=== PATIENT | male | born 1945 | race Caucasian/White ===

== ENCOUNTER → 2018-05-24 12:13 | Outpatient (CLI) | payer MEDICARE, OTHER, SELFPAY ==
--- NOTE | 2018-05-24 | DI.RAD.S_ITS ---
PROCEDURE: XR KNEE LT 3V INDICATIONS: LEFT KNEE PAIN TECHNIQUE: 3 views of the knee were acquired. COMPARISON: None. FINDINGS: Bones: No fractures or dislocations. No suspicious bony lesions. Mild to moderate knee joint degeneration with joint space narrowing and osteophyte formation. Soft tissues: No joint effusion. No suspicious soft tissue calcifications. IMPRESSION: [id number] degenerative joint disease. Dictated by: Darrin Hodge M.D. on 05/24/2018 at 15:37 Approved by: Darrin Hodge M.D. on 05/24/2018 at 15:37
== END ==
PROVIDERS: Family Provider Internal Medicine; PCP Internal Medicine; Visit Provider Internal Medicine
DX: M25.562 Pain in left knee (principal); M17.12 Unilateral primary osteoarthritis, left knee
CPT/HCPCS: 73562

== ENCOUNTER → 2018-11-30 10:25 | Outpatient (CLI) | payer MEDICARE, OTHER, SELFPAY ==
--- NOTE | 2018-11-30 | DI.RAD.S_ITS ---
PROCEDURE: XR CHEST 2V INDICATIONS: Dyspnea, unspecified TECHNIQUE: 2 views of the chest were acquired. COMPARISON: [facility], , CHEST 1 VIEW, 12/17/2015, 12:58. FINDINGS: Surgical changes and devices: Dual-lead cardiac pacer Lungs and pleura: No acute consolidation. Scattered subsegmental atelectasis and/or scarring. No pleural effusions or pneumothorax. Mediastinum: Mediastinal contours are normal. Heart size is normal. Bones and chest wall: No suspicious bony abnormalities. Lateral curvature of the spine and diffuse spondylitic changes. Soft tissues appear unremarkable. IMPRESSION: No acute disease. Dictated by: Homar Webb M.D. on 11/30/2018 at 13:15 Approved by: Homar Webb M.D. on 11/30/2018 at 13:16
== END ==
PROVIDERS: Family Provider Internal Medicine; PCP Internal Medicine; Visit Provider Internal Medicine
DX: R06.00 Dyspnea, unspecified (principal)
CPT/HCPCS: 71046

== ENCOUNTER 2019-09-02 06:03 | Day surgery (SDC) | payer MEDICARE, OTHER, SELFPAY ==
[2019-09-02 07:03] VITALS: BP 131/81; PULSE 66; RESP 15; TEMP 36.1; O2SAT 99; BMI 35.4
[2019-09-02] MEDS: SODIUM CHLORIDE 0.9% 1,000 ML 200 ML IV (07:10)
--- NOTE | 2019-09-02 07:48 | PM.PREOP ---
Pre-operative Note Interval Note History & Physical reviewed/Exam performed by Physician: Yes Changes to H&P: No ASA Class (for procedural sedation): III
[2019-09-02] MEDS: MIDAZOLAM 5 MG/5 ML VIAL IV (07:50)
[2019-09-02] MEDS: fentaNYL 250 MCG/5 ML INJ IV (07:50)
--- NOTE | 2019-09-02 08:10 | PM.OP.ENDO ---
Operative Date/Time/Diagnoses Date of procedure: 09/02/19 Time of procedure: 08:10 Pre-op diagnosis: Screening colonoscopy Post-op diagnosis: same Procedure & Clinicians Study performed: Colonoscopy Same procedure as scheduled: Yes Indications: 74-year-old male last colonoscopy 10 years ago normal presents for routine screening. Surgeon: Jordy New Procedure Notes SCOAP/Timeout: Performed Procedure in detail: Patient placed in left lateral decubitus position. Time out was performed. Procedural sedation was administered with Versed and Fentanyl. A rectal exam demonstrated no external hemorrhoids no internal masses. Colonoscopy scope was placed into the rectum and advanced through the colon to the cecum. The ileocecal valve was identified. The scope was then slowly withdrawn examining colon thoroughly in all directions. The colonoscopy was notable for the following 1. Sigmoid diverticulosis 2. Grade 1 internal hemorrhoids 3. Quality of prep fair Scope withdrawal time: 7 Sedation minutes: 20 Findings: diverticulosis Specimen(s): none sent Complications: none Impression: Diverticulosis Post-procedure Recommendations: Colonscopy in 10 years Disposition: same day surgery
[2019-09-02 08:14] VITALS: BP 120/71; PULSE 60; RESP 14; TEMP 36.2; O2SAT 94
[2019-09-02 08:20] VITALS: BP 124/72; PULSE 60; RESP 14; O2SAT 96
[2019-09-02 08:25] VITALS: BP 116/72; PULSE 60; RESP 12; TEMP 36.5; O2SAT 12
[2019-09-02 08:30] VITALS: BP 105/72; PULSE 60; RESP 12; TEMP 36.2; O2SAT 97
[2019-09-02 08:46] VITALS: BP 112/77; PULSE 61; RESP 14; TEMP 36.2; O2SAT 96
== END 2019-09-02 08:49 | disposition home or self-care (01) ==
PROVIDERS: PCP Internal Medicine; Visit Provider Surgery
PROC: 0DJD8ZZ Inspection of Lower Intestinal Tract, Via Natural or Artificial Opening Endoscopic (ICD-10-PCS; CPT 45378; principal; 2019-09-02 07:45)
DX: Z12.11 Encounter for screening for malignant neoplasm of colon (principal); G47.33 Obstructive sleep apnea (adult) (pediatric); Z95.0 Presence of cardiac pacemaker; E66.9 Obesity, unspecified; J44.9 Chronic obstructive pulmonary disease, unspecified; Z79.01 Long term (current) use of anticoagulants; I34.0 Nonrheumatic mitral (valve) insufficiency; I48.0 Paroxysmal atrial fibrillation; K57.30 Diverticulosis of large intestine without perforation or abscess without bleeding; K64.0 First degree hemorrhoids
CPT/HCPCS: G0121; 99152; J2250; J3010

== ENCOUNTER 2019-09-10 10:08 | Day surgery (SDC) | payer MEDICARE, OTHER, SELFPAY ==
[2019-08-30 14:01] VITALS: BMI 37.5
[2019-09-10] VITALS (9 sets, daily range): BP systolic 95–120; BP diastolic 56–79; PULSE 59–63; RESP 14–18; TEMP 36.1–36.3; O2SAT 94–97; BMI 37.5
--- NOTE | 2019-09-10 10:44 | P.HP_ITS ---
History of Present Illness History of Present Illness Date Patient Seen: 09/10/19 Time Patient Seen: 10:44 Chief complaint: [id number] Narrative: 09/10 this 74-year-old male with a symptomatic umbilical hernia. Please refer to the H& P dated 08/07 for further detail. There's been no interval changes in health. 08/07-This is a 74-year-old male who presents with a chronic non reducible umbilical hernia. Present for many years slowly enlarging becoming more un comfortable with physical activity. He wants operative fixation. No episodes of bowel obstruction or hernia strangulation. It has been chronically incarcerated for the past at least 1 year. His medical history is significant for the cardiac pulmonary disease. He is followed by Dr. Norman of [facility] in [facility]. For he has paroxysmal atrial fibrillation hypertension mitral valve regurgitation a dual chamber pacemaker for sinus node dysfunction and CPAP for obstructive sleep apnea. His most recent echo was July of 2019 which is significant for mild-moderate mitral regurgitation ejection fraction of 65%. A plain treadmill stress test December 2015 was negative for ischemia. No history of peripheral vascular disease, diabetes, stroke or renal insufficiency. They are a former smoker. Patient History Medical History Anxiety (Acute) Arrhythmia (Acute) Arthritis (Acute) BPH (benign prostatic hyperplasia) (Acute) Chronic anticoagulation (Acute) COPD (chronic obstructive pulmonary disease) (Acute) Diverticulitis (Acute) Easy bruisability (Acute) GERD (gastroesophageal reflux disease) (Acute) Gout (Acute) History of cardioversion (Acute) HTN (hypertension) (Acute) Hx of agent [place] exposure (Acute) Mitral regurgitation (Acute) Obesity (Acute) Obstructive sleep apnea (Acute) Pacemaker (Acute 06/06/18) Pain (Acute) Seasonal allergies (Acute) Sinus bradycardia (Acute) Surgical History H/O inguinal hernia repair (Acute ~1982) History of surgery (Acute ~2018) Hx of nasal septoplasty (Acute ~1988) Family & Social History Social History: household members spouse Tobacco & Substance use: Tobacco type cigarettes Smoking Status Former smoker alcohol intake never Substance Use Type does not use Meds Home Medications and Allergies Home Medications Medication Instructions Recorded Confirmed Type dofetilide 125 mcg capsule 250 mcg PO Q12H 08/07/19 09/10/19 History furosemide 20 mg tablet 20 mg PO DAILY 08/07/19 09/10/19 History irbesartan 150 mg tablet 150 mg PO DAILY 08/07/19 09/10/19 History sertraline 50 mg tablet 50 mg PO DAILY 08/07/19 09/10/19 History tamsulosin 0.4 mg capsule 0.4 mg PO DAILY 08/07/19 09/10/19 History warfarin 7.5 mg tablet 7.5 mg PO QTUTHSA 08/07/19 09/10/19 History Allergies Allergy/AdvReac Type Severity Reaction Status Date / Time No Known Drug Allergies Allergy Verified 09/10/19 10:27 Review of Systems Review of Systems Narrative: A complete review of systems is negative except as noted in the HPI Exam Narrative Exam Narrative: General-no acute distress, well nourished HEENT-moist mucous membranes, no scleral icterus Neck-supple, no lymphadenopathy Chest- non labored respirations, clear to auscultation bilaterally Cardiac-regular rate no peripheral edema Abdomen-soft, non reducible umbilical Extremities-warm, well perfused Neurological-alert and oriented, no focal deficits Assessment & Plan Assessment and plan (1) Umbilical hernia: Current visit: No Status: Acute Assessment & Plan narrative: 74-year-old male with a symptomatic umbilical hernia presents for elective repair. We discussed the risks of the operation including bleeding infection recurrence chronic pain. His questions have been answered and he is in agreement with this plan.
[2019-09-10] MEDS: CEFAZOLIN 2 GM/100 ML FROZ.PIGGY IV (10:50)
--- NOTE | 2019-09-10 11:06 | SUR.OPER ---
Supine on padded OR bed, head on pillow, arms secured on padded arm boards at <90 degrees abduction, legs uncrossed, safety belt at thigh, tape over blanket over lower legs.
[2019-09-10] MEDS: BUPIVACAINE 0.25% (PF) VIAL 30 ML INJ (11:10)
--- NOTE | 2019-09-10 12:03 | PM.OP.1 ---
Operative Date/Time/Diagnoses Date of procedure: 09/10/19 Time of procedure: 12:04 Pre-op diagnosis: Umbilical hernia Post-op diagnosis: same Procedure & Clinicians Procedure: Open umbilical hernia pair with mesh Same procedure as scheduled: Yes Indications: 74-year-old male with a symptomatic umbilical hernia presents for elective repair Surgeon: Jordy New Click Yes if Unassisted: Yes Anesthesia Type: General Operative Notes Findings: Incarcerated omental fat within the umbilical sac Estimated Blood Loss (mL): 20 Procedure in detail: Patient was brought to the operating room placed supine on the table. Bilateral lower extremity compression devices were applied. General anesthesia was inducedand they were intubated with an endotracheal tube. They received 2 g of Ancef prior to skin incision. They were prepped and draped in sterile fashion. A time-out was performed ensure the correct patient procedure necessary equipment within the operating room. A curvilinear incision was made inferior to the umbilicus. The subcutaneous tissues were divided. The umbilical hernia was identified and was dissected off the umbilicus and circumferentially. The umbilical hernia sac was opened carefully using [place] and contained incarcerated but viable omentum. The omentum was transected using electrocautery and passed off the field. The hernia sac was then closed with 3 0 Vicryl suture. The sac was reduced into the abdomen and the fascia was cleared from above in order to accommodate the mesh. The fascial edges were then reapproximated with a [id number] 0 PDS suture. A Pro Loop polypropylene mesh was inserted over the fascial defect. It was secured to the fascia using 0 Prolene suture in interrupted fashion. The subcutaneous tissues were reapproximated using 3 0 Vicryl skin closed with 4 0 Monocryl upon by the application of Dermabond and Steri-Strips. Sponge instrument count at the end of the operation was correct. Patient tolerated procedure well was extubated and transferred to postoperative care unit in stable condition. Complications: none Post-operative Condition: stable Disposition: same day surgery
[2019-09-10] MEDS: OXYCODONE/ACETAMINOPHEN 5/325 TABLET 1 TAB PO (12:25)
--- NOTE | 2019-09-10 12:59 | SUR.PHASEII ---
Patient discharged home in stable condition with via wheelchair/private vehicle. All belongings returned to patient. VSS.
== END 2019-09-10 13:08 | disposition home or self-care (01) ==
PROVIDERS: PCP Internal Medicine; Visit Provider Surgery
PROC: (CPT 49587; principal; 2019-09-10 11:45)
DX: K42.0 Umbilical hernia with obstruction, without gangrene (principal); G47.33 Obstructive sleep apnea (adult) (pediatric); J44.9 Chronic obstructive pulmonary disease, unspecified; Z95.0 Presence of cardiac pacemaker; I48.0 Paroxysmal atrial fibrillation; I10 Essential (primary) hypertension; Z87.891 Personal history of nicotine dependence; I34.0 Nonrheumatic mitral (valve) insufficiency; Z79.01 Long term (current) use of anticoagulants
CPT/HCPCS: 49587; C1781; J0690; J1100; J1885; J2405; J2704; J3010

== ENCOUNTER 2019-09-29 19:47 | Inpatient (IN) | payer MEDICARE, OTHER, SELFPAY ==
--- NOTE | 2019-09-29 19:59 | DI.RAD.S_ITS ---
PROCEDURE: XR CHEST 1V INDICATIONS: SOB TECHNIQUE: One view of the chest was acquired. COMPARISON: [facility], [facility], XR CHEST 2V, 11/30/2018, 10:30. [facility], [facility], CHEST 1 VIEW, 12/17/2015, 12:58. FINDINGS: Surgical changes and devices: Left pacemaker with right atrial and right ventricular leads. Lungs and pleura: Minimal prominence of the pulmonary vasculature markings. No pleural effusions or pneumothorax. Mediastinum: Mediastinal contours appear normal. Heart size is normal. Bones and chest wall: No suspicious bony lesions. Overlying soft tissues appear unremarkable. IMPRESSION: Minimal prominence of the pulmonary vasculature markings. No overt CHF. Dictated by: Dallas Teixeira M.D. on 09/29/2019 at 20:45 Approved by: Dallas Teixeira M.D. on 09/29/2019 at 20:47
[2019-09-29 20:01] VITALS: BP 118/73; PULSE 88; RESP 18; TEMP 36.8; O2SAT 99
--- NOTE | 2019-09-29 20:19 | ED_ITS ---
HPI - GI Bleed General Chief complaint: GI Bleed Stated complaint: cant catch breath, other weird symptoms all day Time Seen by Provider: 09/29/19 19:48 Source: patient and family Mode of arrival: Family Vehicle Limitations: no limitations History of Present Illness HPI Narrative: 74-year-old male former smoker with history of hypertension, AFib on Coumadin presents feeling short of breath and fatigued with 4 episodes of dark black stool over the course of the day. He denies any coffee-ground emesis or bloody vomit. He denies any pain. He denies the use of NSAIDs and quit drinking many years ago. He denies any history of liver failure, esophageal varices or gastrointestinal bleeding. He recently had an umbilical hernia repair and a dental procedure at the beginning of the year and had a short course of antibiotics otherwise denies medication or dietary change. MD complaint: melena Onset (ago): hour(s) Severity: mild Relieving factors: none Exacerbating factors: none Associated symptoms: shortness of breath Treatments Prior to Arrival: none Related Data Home Medications Medication Instructions Recorded Confirmed dofetilide 125 mcg capsule 250 mcg PO Q12H 08/07/19 09/29/19 furosemide 20 mg tablet 20 mg PO DAILY 08/07/19 09/29/19 irbesartan 150 mg tablet 150 mg PO DAILY 08/07/19 09/29/19 sertraline 50 mg tablet 50 mg PO DAILY 08/07/19 09/29/19 tamsulosin 0.4 mg capsule 0.4 mg PO DAILY 08/07/19 09/29/19 warfarin 7.5 mg tablet See Rx Instructions .ROUTE .COMPLEX 08/07/19 09/29/19 albuterol sulfate [Ventolin HFA] 1 puff INHALATION QID 09/29/19 09/29/19 tiotropium-olodaterol [Stiolto 2 puff INHALATION DAILY 09/29/19 09/29/19 Respimat] triamcinolone acetonide [Nasacort] 1 spray INTRANASAL DAILY PRN 09/29/19 09/29/19 Allergies Allergy/AdvReac Type Severity Reaction Status Date / Time No Known Drug Allergies Allergy Verified 09/23/19 13:12 Review of Systems Constitutional Constitutional: Denies chills, Denies fatigue, Denies fever(s), Denies frequent falls, Denies lethargy and Denies weakness Eyes Eyes: Denies change in vision, Denies eye discharge, Denies irritation and Denies loss of vision ENT Ears, Nose, Mouth, and Throat: Denies change in voice, Denies dizziness, Denies neck pain, Denies sore throat and Denies throat swelling Cardiovascular Cardiovascular: Denies chest pain, Denies irregular heart rhythm, Denies lightheadedness, Denies palpitations, Denies dyspnea, Denies dyspnea on exertion and Denies orthopnea Respiratory Respiratory: Denies cough, Denies dyspnea, Denies dyspnea on exertion and Denies wheezing Gastrointestinal Gastrointestinal: Denies abdominal pain, Denies change in bowel habits, Denies diarrhea, Denies nausea and Denies vomiting Genitourinary Genitourinary: Denies hematuria, Denies flank pain, Denies urinary incontinence and Denies urinary urgency Musculoskeletal Musculoskeletal: Denies back pain, Denies muscle weakness, Denies neck pain, Denies numbness and Denies tingling Integumentary/Breasts Skin/Breast: Denies pruritus, Denies erythema, Denies rash and Denies wounds Neurologic Neurologic: Denies behavioral changes, Denies confusion, Denies dizziness, Denies frequent falls, Denies loss of vision, Denies numbness, Denies tingling and Denies weakness Psychiatric Psychiatric: Denies anxiety, Denies behavioral changes, Denies confusion, Denies depression, Denies homicidal ideation and Denies suicidal ideation Endocrine Endocrine: Denies fatigue, Denies flushing and Denies palpitations Hematologic/Lymphatic Hematologic/Lymphatic: Denies easy bruising Allergic/Immunologic Allergic/Immunologic: Denies urticaria, Denies throat swelling and Denies wheezing Patient History Medical History Anxiety (Acute) Arrhythmia (Acute) Arthritis (Acute) BPH (benign prostatic hyperplasia) (Acute) Chronic anticoagulation (Acute) COPD (chronic obstructive pulmonary disease) (Acute) Diverticulitis (Acute) Easy bruisability (Acute) GERD (gastroesophageal reflux disease) (Acute) Gout (Acute) History of cardioversion (Acute) HTN (hypertension) (Acute) Hx of agent [place] exposure (Acute) Mitral regurgitation (Acute) Obesity (Acute) Obstructive sleep apnea (Acute) Pacemaker (Acute 06/06/18) Pain (Acute) Seasonal allergies (Acute) Sinus bradycardia (Acute) Surgical History H/O inguinal hernia repair (Acute ~1982) History of surgery (Acute ~2018) Hx of nasal septoplasty (Acute ~1988) Status cardiac pacemaker (Chronic) Social History (Updated 08/09/19 @ 13:16 by Jordy New MD) household members: spouse Smoking Status: Former smoker alcohol intake: never Smoking Status: Former smoker alcohol intake frequency: 0-2 drinks per day Substance Use Type: does not use Exam Narrative Exam Narrative: GENERAL: [74] year old patient appears stated age. Well-nourished, well-developed patient, in mild distress. HEAD: Atraumatic. Normocephalic. EYES: Pupils equal round and reactive. Extraocular motions intact. No scleral icterus. No injection or drainage. ENT: Nose without bleeding, purulent drainage. Throat without erythema, tonsillar hypertrophy or exudate. Airway patent. NECK: Trachea midline. Non tender CARDIOVASCULAR: Regular rate and rhythm without murmurs, gallops, or rubs. RESPIRATORY: Clear to auscultation. Breath sounds equal bilaterally. No wheezes, rales, or rhonchi. GASTROINTESTINAL: Abdomen soft, non-tender, nondistended. EXTREMITIES: No edema or joint tenderness. BACK: Nontender without deformity or crepitance. No flank tenderness. NEURO: AOx3. SKIN: No rash or erythema of visible areas Initial Vital Signs Initial Vital Signs: Vital Signs Temperature 98.2 F 09/29/19 20:01 Pulse Rate 88 09/29/19 20:01 Respiratory Rate 18 09/29/19 20:01 Blood Pressure 118/73 09/29/19 20:01 Pulse Oximetry 99 09/29/19 20:01 Course Course Course Narrative: 74-year-old male with new onset shortness of breath and fatigue as well as multiple dark and tarry stools over the course of the day has heme-positive stool and elevated INR. History, physical are highly consistent with an upper GI bleed. Patient is hemodynamically stable with a slightly decreased H&H. Other diagnoses such as pneumonia, COPD and pulmonary embolism are considered but thought less likely given results of the above-stated findings. After consultation with hospitalist D-dimer was ordered and is slightly elevated, even when corrected for age. CT angiogram ordered on the floor Orders Ordered: Acetaminophen (Tylenol) 650 mg PO Q6HR PRN PRN Reason: Fever/Mild Pain (1-3) Albuterol (Ventolin Hfa) 1 puff INH QID [facility] Sodium Chloride (Normal Saline 0.9%) 1,000 mls @ 100 mls/hr IV CONT [facility] Last Admin: 09/29/19 23:18 Dose: 100 mls/hr Documented by: CHRISTIAN Naloxone HCl (Narcan) 0.2 mg IV Q2MIN PRN PRN Reason: Opiate Reversal Non-Formulary Medication (Dofetilide [Tikosyn]) 250 mcg PO Q12H [facility] Last Admin: 09/30/19 04:42 Dose: Not Given Documented by: CHACHA Non-Formulary Medication (Tiotropium-Olodaterol [Stiolto Respimat]) 2 puff INH DAILY [facility] Pantoprazole Sodium (Protonix) 40 mg IV DAILY [facility] Discontinued Medications Ondansetron HCl (Zofran) 4 mg IV NOW ONE Stop: 09/29/19 19:59 Last Admin: 09/29/19 20:27 Dose: 4 mg Documented by: WOOD Pantoprazole Sodium (Protonix) 40 mg IV NOW ONE Stop: 09/29/19 19:59 Last Admin: 09/29/19 20:27 Dose: 40 mg Documented by: WOOD Phytonadione (Mephyton) 5 mg PO NOW ONE Stop: 09/29/19 20:41 Last Admin: 09/29/19 20:44 Dose: 5 mg Documented by: SARAH Consultations Consultation #1: Dr. Deras consulted and is happy to scope when hospitalist consults. Recommends PPI BID and Vitamin K 5mg PO Consultation #2: hospitalist happy to accept Vital Signs Vital signs: Vital Signs - 8 hr 09/29/19 20:01 Temperature 98.2 F Pulse Rate 88 Respiratory Rate 18 Blood Pressure 118/73 Pulse Oximetry 99 MDM - GI Bleed Lab Data Result diagrams: 09/30/19 01:55 09/29/19 20:09 Labs: Lab Results 09/29/19 09/29/19 09/29/19 Range/Units 20:09 20:09 20:09 WBC 8.1 (4.5-11.0) X10^3/uL RBC 3.83 L (4.5-5.9) X10^6/uL Hgb 11.6 L (13.5-17.5) g/dL Hct 33.6 L (41-53) % MCV 87.8 (80-100) fL MCH 30.3 (26-34) PG MCHC 34.5 (30-36) % RDW 13.8 (11.6-14.8) % Plt Count 289 (150-400) X10^3/uL Neut % (Auto) 68.4 (50-75) % Lymph % (Auto) 20.9 L (25-40) % Perkins % (Auto) 9.0 (3-14) % Eos % (Auto) 0.8 L (2-4) % Baso % (Auto) 0.9 (0-2) % Neut # (Auto) 5600 (6843-0564) /uL Lymph # (Auto) 1700 (3275-6769) /uL Perkins # (Auto) 700 (0-900) /uL Eos # (Auto) 100 (0-450) /uL Baso # (Auto) 100 (0-100) /uL PT 41.1 H (10.1-12.7) SECONDS INR 3.5 H (0.9-1.3) APTT 44 H (26.4-36.2) SECONDS D-Dimer (<230) ng/mL Sodium 135 L (137-145) mmol/L Potassium 4.3 (3.4-5.1) mmol/L Chloride 103 (98-107) mmol/L Carbon Dioxide 23 (22-32) mmol/L BUN 56 H (9-20) mg/dL Creatinine 0.90 (0.66-1.25) mg/dL Estimated GFR > 60.0 (>60) mL/min BUN/Creatinine Ratio 62.2 H (6-22) Glucose 106 (80-110) mg/dL Calcium 8.7 (8.4-10.2) mg/dL Total Bilirubin 0.3 (0.2-1.3) mg/dL AST 23 (17-59) IU/L ALT 16 (<50) IU/L Alkaline Phosphatase 65 (38-126) U/L Total Protein 6.7 (6.3-8.2) g/dL Albumin 3.9 (3.5-5.0) g/dL Globulin 2.8 (1.7-4.1) g/dL Albumin/Globulin Ratio 1.4 (1.0-2.8) Blood Type Antibody Screen 09/29/19 09/29/19 Range/Units 20:09 20:09 WBC (4.5-11.0) X10^3/uL RBC (4.5-5.9) X10^6/uL Hgb (13.5-17.5) g/dL Hct (41-53) % MCV (80-100) fL MCH (26-34) PG MCHC (30-36) % RDW (11.6-14.8) % Plt Count (150-400) X10^3/uL Neut % (Auto) (50-75) % Lymph % (Auto) (25-40) % Perkins % (Auto) (3-14) % Eos % (Auto) (2-4) % Baso % (Auto) (0-2) % Neut # (Auto) (8470-8042) /uL Lymph # (Auto) (9130-6840) /uL Perkins # (Auto) (0-900) /uL Eos # (Auto) (0-450) /uL Baso # (Auto) (0-100) /uL PT (10.1-12.7) SECONDS INR (0.9-1.3) APTT (26.4-36.2) SECONDS D-Dimer 735 H (<230) ng/mL Sodium (137-145) mmol/L Potassium (3.4-5.1) mmol/L Chloride (98-107) mmol/L Carbon Dioxide (22-32) mmol/L BUN (9-20) mg/dL Creatinine (0.66-1.25) mg/dL Estimated GFR (>60) mL/min BUN/Creatinine Ratio (6-22) Glucose (80-110) mg/dL Calcium (8.4-10.2) mg/dL Total Bilirubin (0.2-1.3) mg/dL AST (17-59) IU/L ALT (<50) IU/L Alkaline Phosphatase (38-126) U/L Total Protein (6.3-8.2) g/dL Albumin (3.5-5.0) g/dL Globulin (1.7-4.1) g/dL Albumin/Globulin Ratio (1.0-2.8) Blood Type A Positive Antibody Screen Negative Point of Care Testing Stool Occult Blood Positive Discharge Plan Departure Patient Disposition: Admitted As Inpatient Clinical Impression: Acute GI bleeding Discharge Date/Time: 09/29/19 22:08 Admit Date/Time: 09/29/19 20:58 Admit Provider: Tracey Webb
[2019-09-29 20:22] LABS: Add Manual Diff / Slide Review NO; Basophils Absolute Auto 100 /uL (0-100); Basophils Percent Auto 0.9 % (0-2); Eosinophils Absolute Auto 100 /uL (0-450); Eosinophils Percent Auto 0.8 % (2-4); Hematocrit 33.6 % (41-53); Hemoglobin 11.6 g/dL (13.5-17.5); Lymphocytes Absolute Auto 1700 /uL (1100-4500); Lymphocytes Percent Auto 20.9 % (25-40); Mean Corpuscular HGB Conc 34.5 % (30-36); Mean Corpuscular Hemoglobin 30.3 PG (26-34); Mean Corpuscular Volume 87.8 fL (80-100); Monocytes Absolute Auto 700 /uL (0-900); Neutrophils Absolute Auto 5600 /uL (1500-7000); Neutrophils Percent Auto 68.4 % (50-75); Platelet Count 289 X10^3/uL (150-400); Red Blood Cell Count 3.83 X10^6/uL (4.5-5.9); Red Cell Distribution Width 13.8 % (11.6-14.8); White Blood Cell Count 8.1 X10^3/uL (4.5-11.0)
[2019-09-29 20:27] LABS: INR 3.5 (0.9-1.3); Prothrombin Time 41.1 SECONDS (10.1-12.7)
[2019-09-29] MEDS: ONDANSETRON 4 MG/2 ML INJ IV (20:27)
[2019-09-29] MEDS: PANTOPRAZOLE 40 MG VIAL IV (20:27)
[2019-09-29 20:29] LABS: PTT Partial Thromboplastin Tim 44 SECONDS (26.4-36.2)
[2019-09-29 20:31] LABS: Alanine Aminotransferase 16 IU/L (<50); Albumin 3.9 g/dL (3.5-5.0); Albumin Globulin Ratio 1.4 (1.0-2.8); Alkaline Phosphatase 65 U/L (38-126); Aspartate Aminotransferase 23 IU/L (17-59); BUN Creatinine Ratio 62.2 (6-22); Bilirubin Total 0.3 mg/dL (0.2-1.3); Blood Urea Nitrogen 56 mg/dL (9-20); Calcium 8.7 mg/dL (8.4-10.2); Carbon Dioxide 23 mmol/L (22-32); Chloride 103 mmol/L (98-107); Estimated Glomerular Filt Rate > 60.0 mL/min (>60); Globulin 2.8 g/dL (1.7-4.1); Glucose 106 mg/dL (80-110); HEMOLYSIS 26 (0-50); Potassium 4.3 mmol/L (3.4-5.1); Sodium 135 mmol/L (137-145); Total Protein 6.7 g/dL (6.3-8.2)
[2019-09-29] MEDS: PHYTONADIONE (VIT K1) 5 MG TABLET PO (20:44)
[2019-09-29 21:13] VITALS: BMI 36.4
[2019-09-29 21:42] VITALS: BP 116/60; PULSE 70; RESP 26; O2SAT 100
[2019-09-29 21:45] VITALS: BP 116/60; PULSE 60; RESP 17; O2SAT 100
[2019-09-29 22:02] LABS: D Dimer 735 ng/mL (<230)
[2019-09-29 22:05] VITALS: BP 111/59; PULSE 60; RESP 18; TEMP 36.6; O2SAT 97
[2019-09-29 22:49] VITALS: BMI 36.4
--- NOTE | 2019-09-29 22:51 | P.HP_ITS ---
History of Present Illness History of Present Illness Date Patient Seen: 09/29/19 Time Patient Seen: 22:00 Chief complaint: cant catch breath, other weird symptoms all day Narrative: Kash Mcdaniels is a 74 y.o. male with atrial fibrillation anticoagulated on warfarin who has a dual chamber pacemaker, a recent history of umbilical hernia repair on September 23, a one day history of sudden onset shortness of breath which lasted the better part of today. He also stated he was lightheaded and dizzy, worsening when he stood up. He ate an apple and later had soup followed by 4 bowel movements with dark tarry stool. He also states he drinks a lot of water due to working out and had 7 or 8 -14 oz glasses of water and has been urinating infrequently and with little output compared to normal. States positive to his eyes having a burning sensation, a dry cough, shortness of breath which is new, having cold hands, hips, knees over the past week, and now the rectal bleeding. Denies chest pain. Patient has persistent atrial fibrillation and had a dual chamber pacemaker placed in July 2018. He is followed by [facility] in [place]. His automation controls specialist has left and he has followed up with nursing visits, but has not seen a cardiology provider since his automation controls specialist left. Per information in the record, he appears to follow with [facility] last seen in June 2019. His last echo was done 08/02/19 indicating mild LVH with a normal EF of 65% with mild to moderate mitral regurgitation and trace tricuspid regurgitation. He is rate and rhythm controlled on dofetilide and takes warfarin 7.5 mg daily for 6 days and on Sundays, takes 15 mg. Due to his recent surgery, he went off his warfarin for 5 days, but has resumed it. Patient History Medical History Anxiety (Acute) Arrhythmia (Acute) Arthritis (Acute) BPH (benign prostatic hyperplasia) (Acute) Chronic anticoagulation (Acute) COPD (chronic obstructive pulmonary disease) (Acute) Diverticulitis (Acute) Easy bruisability (Acute) GERD (gastroesophageal reflux disease) (Acute) Gout (Acute) History of cardioversion (Acute) HTN (hypertension) (Acute) Hx of agent [place] exposure (Acute) Mitral regurgitation (Acute) Obesity (Acute) Obstructive sleep apnea (Acute) Pacemaker (Acute 06/06/18) Pain (Acute) Seasonal allergies (Acute) Sinus bradycardia (Acute) Surgical History H/O inguinal hernia repair (Acute ~1982) History of surgery (Acute ~2018) Hx of nasal septoplasty (Acute ~1988) Status cardiac pacemaker (Chronic) Family & Social History Social History: household members spouse Safety & Behavioral: Feels Safe in Current Yes Environment Been Physically Hurt or No Threatened By a Person Tobacco & Substance use: Tobacco type cigarettes Smoking Status Quit 35 years ago, 15 year PH, alcohol intake denies alcohol intake frequency Substance Use Type does not use Meds Home Medications and Allergies Home Medications Medication Instructions Recorded Confirmed Type dofetilide 125 mcg capsule 250 mcg PO Q12H 08/07/19 09/29/19 History furosemide 20 mg tablet 20 mg PO DAILY 08/07/19 09/29/19 History irbesartan 150 mg tablet 150 mg PO DAILY 08/07/19 09/29/19 History sertraline 50 mg tablet 50 mg PO DAILY 08/07/19 09/29/19 History tamsulosin 0.4 mg capsule 0.4 mg PO DAILY 08/07/19 09/29/19 History warfarin 7.5 mg tablet See Rx Instructions .ROUTE .COMPLEX 08/07/19 09/29/19 History albuterol sulfate [Ventolin HFA] 1 puff INHALATION QID 09/29/19 09/29/19 History tiotropium-olodaterol [Stiolto 2 puff INHALATION DAILY 09/29/19 09/29/19 History Respimat] triamcinolone acetonide [Nasacort] 1 spray INTRANASAL DAILY PRN 09/29/19 09/29/19 History Allergies Allergy/AdvReac Type Severity Reaction Status Date / Time No Known Drug Allergies Allergy Verified 09/23/19 13:12 Review of Systems Review of Systems Narrative: All systems reviewed and are negative except as noted in the HPI. Exam Vital Signs (past 8 hours): - 09/29/19 20:01 09/29/19 21:42 09/29/19 21:45 Temperature 98.2 F Pulse Rate 88 70 60 Respiratory Rate 18 26 H 17 Blood Pressure 118/73 Blood Pressure [Left Arm] 116/60 116/60 Pulse Oximetry 99 100 100 09/29/19 22:05 Temperature 97.9 F Pulse Rate 60 Respiratory Rate 18 Blood Pressure 111/59 L Blood Pressure [Left Arm] Pulse Oximetry 97 Oxygen Delivery Method Room Air Oxygen Flow Rate 0 Narrative Exam Narrative: Gen: Alert, oriented, obese 74 y.o. male HEENT: normocephalic, atraumatic, conjunctiva clear, sclera non-icteric, oral mucosa pink and moist Neck: supple, full ROM Resp: Lungs CTA, non-labored breathing CV: irregularly irregular, no murmur or rubs Abd: soft, non-tender, normoactive BTs Skin: no lesions or rashes, dry and intact Neuro: Alert and oriented X 4 w/no focal deficits Extremities: moves all 4 extremities, is ambulatory, negative Maar?s sign Psyche: normal mood and affect. Objective Labs Result Diagrams: 09/30/19 05:55 09/29/19 20:09 Labs: Laboratory Results - last 24 hr 09/29/19 09/29/19 09/29/19 20:09 20:09 20:09 WBC 8.1 RBC 3.83 L Hgb 11.6 L Hct 33.6 L MCV 87.8 MCH 30.3 MCHC 34.5 RDW 13.8 Plt Count 289 Neut % (Auto) 68.4 Lymph % (Auto) 20.9 L [place] % (Auto) 9.0 Eos % (Auto) 0.8 L Baso % (Auto) 0.9 Neut # (Auto) 5600 Lymph # (Auto) 1700 [place] # (Auto) 700 Eos # (Auto) 100 Baso # (Auto) 100 PT 41.1 H INR 3.5 H APTT 44 H D-Dimer Sodium 135 L Potassium 4.3 Chloride 103 Carbon Dioxide 23 BUN 56 H Creatinine 0.90 Estimated GFR > 60.0 BUN/Creatinine Ratio 62.2 H Glucose 106 Calcium 8.7 Total Bilirubin 0.3 AST 23 ALT 16 Alkaline Phosphatase 65 Total Protein 6.7 Albumin 3.9 Globulin 2.8 Albumin/Globulin Ratio 1.4 Blood Type Antibody Screen 09/29/19 09/29/19 20:09 20:09 WBC RBC Hgb Hct MCV MCH MCHC RDW Plt Count Neut % (Auto) Lymph % (Auto) [place] % (Auto) Eos % (Auto) Baso % (Auto) Neut # (Auto) Lymph # (Auto) [place] # (Auto) Eos # (Auto) Baso # (Auto) PT INR APTT D-Dimer 735 H Sodium Potassium Chloride Carbon Dioxide BUN Creatinine Estimated GFR BUN/Creatinine Ratio Glucose Calcium Total Bilirubin AST ALT Alkaline Phosphatase Total Protein Albumin Globulin Albumin/Globulin Ratio Blood Type A Positive Antibody Screen Negative Assessment & Plan Assessment & Plan narrative: Kash Mcdaniels will be admitted for further evaluation of his rectal bleeding. 1. Upper gastrointestinal bleed, acute, present on admission * Dr. Dye was contacted by the ED provider * Consult to surgery w/Dr. New who is very familiar with the patient * NPO * CBC at 0200 and 0500 * He has been typed and screened 2. Shortness of breath, acute, present on admission * Procalcitonin is negative w/a normal respiratory exam * D-dimer equivocal at 735, normal age related cut-off is 720 * CT angio of the chest was negative for a PE. 3. Supratherapeutic INR, acute, present on admission * Patient was given a one-time dose of PO vitamin K in the ED * Holding warfarin 4. Longstanding persistent atrial fibrillation, chronic, present on admission * Patient takes dofetilide 250 mcg twice daily * Paced * Telemetry 5. Status cardiac pacemaker, chronic and stable * See #4 6. Obstructive sleep apnea, chronic and stable * Patient will use own CPAP machine 7. Essential hypertension, chronic and stable * Patient is currently normotensive 8. Warfarin anticoagulation, chronic and stable * See #3 FEN: NS at 100 ml/hour, NPO, chemistries in the am Patient is admitted inpatient s his stay is likely to exceed 2 midnights. VTE Prophylaxis: bilateral SCDs Medications reconciled: yes Disposition: unknown at this time Code Status: full Quality VTE Deep Vein Thrombosis/Pulmonary Embolism Present on Admission: No
[2019-09-29] MEDS: SODIUM CHLORIDE 0.9% 1,000 ML 100 ML IV (23:18)
--- NOTE | 2019-09-29 23:20 | DI.CT.S_ITS ---
PROCEDURE: CT ANGIO CHEST PE PROTOCOL INDICATIONS: Elevated D-dimer, sudden onset SOB, elevated INR TECHNIQUE: After the administration of intravenous contrast, 2 mm thick sections acquired from the pulmonary apices to the posterior costophrenic angles. 3-dimensional maximum intensity projection (MIP) coronal and sagittal reformats were then acquired through the thorax. For radiation dose reduction, the following was used: automated exposure control, adjustment of mA and/or kV according to patient size. COMPARISON: [facility], CR, XR CHEST 2V, 11/30/2018, 10:30. [facility], CR, XR CHEST 1V, 09/29/2019, 20:25. FINDINGS: Image quality: Excellent. Pulmonary arteries: Pulmonary arteries are normal in size, and demonstrate no intraluminal filling defects to suggest central pulmonary embolism. Lungs and pleura: Scattered subsegmental atelectasis and/or scarring. No focal consolidation. No pleural effusions or pneumothorax. Central and peripheral airways are patent. Mediastinum: Heart size is normal, without pericardial effusion. Coronary artery calcifications are present. No mediastinal or hilar adenopathy. Thoracic aorta is normal in caliber and enhancement. Esophagus is normal in caliber, without hiatal hernia. Airway thickening in keeping with nonspecific bronchitis and/or reactive airways disease. Bones and chest wall: No suspicious bony lesions. Ribs and thoracic spine appear intact throughout. Thyroid gland unremarkable. No axillary or supraclavicular adenopathy. Abdomen: Visualized upper abdominal solid organs appear normal in the early arterial phase of enhancement. IMPRESSION: No evidence of pulmonary embolism. Scattered subsegmental atelectasis and/or scarring. No acute consolidation. Coronary artery disease Airway thickening in keeping with nonspecific bronchitis and/or reactive airways disease Findings concordant with the preliminary study interpretation provided at the time of the exam. Dictated by: Homar Webb M.D. on 09/30/2019 at 8:32 Approved by: Homar Webb M.D. on 09/30/2019 at 8:42
[2019-09-29 23:40] VITALS: BP 105/52; PULSE 60; RESP 19; TEMP 36.6; O2SAT 95
--- NOTE | 2019-09-29 23:43 | PC.NURSE ---
Addendum entered by Sonja Booker R.N. 09/30/19 04:40: 0030 Noted that both 0000 and 0400 telemetry readings were afib CVR . Original Note: Patient is alert and oriented. Breath sounds CTA with RA sat of 97%; using home CPAP for night. HRR; on telemetry with last reading recorded as SR. Denies nausea. Reports 4 black stools prior to admission. BT present; tender in left LQ. Voiding per urinal; denies dysuria, frequency or urgency. Able to move self in bed. SBA when out of bed as reports 1 fall in past month. Currently denies any dizziness or lightheadedness. Denies any pain except for the LLQ abdominal tenderness. SCD's applied as per MD order. Incision to umbilicus is scabbed over and slightly red around edges. Pacemaker to left upper chest. Fall risk score is high and bed alarm is activated. rooming in.
[2019-09-30] VITALS (12 sets, daily range): BP systolic 90–167; BP diastolic 57–86; PULSE 60–64; RESP 12–20; TEMP 36.2–37.1; O2SAT 94–98; BMI 36.2
[2019-09-30 02:05] LABS: Hematocrit 28.8 % (41-53); Hemoglobin 9.9 g/dL (13.5-17.5); Mean Corpuscular HGB Conc 34.5 % (30-36); Mean Corpuscular Hemoglobin 30.5 PG (26-34); Mean Corpuscular Volume 88.4 fL (80-100); Platelet Count 226 X10^3/uL (150-400); Red Blood Cell Count 3.25 X10^6/uL (4.5-5.9); Red Cell Distribution Width 13.7 % (11.6-14.8); White Blood Cell Count 7.4 X10^3/uL (4.5-11.0)
[2019-09-30 06:15] LABS: Add Manual Diff / Slide Review NO; Basophils Absolute Auto 0 /uL (0-100); Basophils Percent Auto 0.7 % (0-2); Eosinophils Absolute Auto 100 /uL (0-450); Hematocrit 29.2 % (41-53); Hemoglobin 9.9 g/dL (13.5-17.5); Lymphocytes Absolute Auto 1800 /uL (1100-4500); Lymphocytes Percent Auto 29.3 % (25-40); Mean Corpuscular HGB Conc 33.8 % (30-36); Mean Corpuscular Hemoglobin 30.4 PG (26-34); Mean Corpuscular Volume 89.9 fL (80-100); Monocytes Absolute Auto 700 /uL (0-900); Monocytes Percent Auto 10.9 % (3-14); Neutrophils Absolute Auto 3600 /uL (1500-7000); Neutrophils Percent Auto 57.1 % (50-75); Platelet Count 228 X10^3/uL (150-400); Red Blood Cell Count 3.25 X10^6/uL (4.5-5.9); Red Cell Distribution Width 13.9 % (11.6-14.8); White Blood Cell Count 6.3 X10^3/uL (4.5-11.0)
[2019-09-30 06:26] LABS: Blood Urea Nitrogen 40 mg/dL (9-20); Calcium 8.4 mg/dL (8.4-10.2); Carbon Dioxide 24 mmol/L (22-32); Chloride 105 mmol/L (98-107); Estimated Glomerular Filt Rate > 60.0 mL/min (>60); Glucose 98 mg/dL (80-110); HEMOLYSIS 20 (0-50); Potassium 3.9 mmol/L (3.4-5.1); Sodium 136 mmol/L (137-145)
--- NOTE | 2019-09-30 08:11 | PM.CN ---
History of Present Illness Consult details Date Patient Seen: 09/30/19 Time Patient Seen: 08:11 Chief complaint: cant catch breath, other weird symptoms all day Reason for consult: GI bleed Requesting provider: Dennis Krause Narrative: This is a 74 yo man with h/o atrial fibrillation anticoagulated on warfarin who has a dual chamber pacemaker, a recent history of umbilical hernia repair on September 23, and colonoscopy a few months ago, came into the ER last night with a one day history of sudden onset shortness of breath which lasted most of the day. He noticed his stool was very dark, and he was concerns of a came into the ER. In the ER he was found to have hemoglobin of 11, and guaiac-positive stool. His INR was 3.5. He was admitted to the hospitalist service, and his INR recheck is pending this morning. He feels okay right now. He doesn't complain of any epigastric pain or nausea. He hasn't had another bowel movement since coming in the hospital. ROS: Positive for shortness of breath, history of pacemaker, atrial fibrillation rate controlled on medication, anticoagulated on Coumadin x3 years, denies nausea, vomiting, epigastric pain. ROS is otherwise negative other than as mentioned in the HPI and below. PE: GENERAL: Sleepy but arousable, fully oriented. Appears stated age. Answers questions promptly and appropriately. Vital signs noted. HENT: Normocephalic, atraumatic. Hearing intact. Oral mucosa is pink and moist. EYES: Conjunctiva pink, sclera white, no periorbital swelling. CARDIOVASCULAR: Regular rate. No pedal edema. RESPIRATORY: Non-tachypneic, breathing comfortably on room air. GASTROINTESTINAL: Abdomen soft and non-distended, no epigastric tenderness GENITALURINARY: No flank tenderness. MUSCULOSKELETAL: Equal tone and mass bilaterally. SKIN: Warm, dry, soft, appropriate color for ethnicity. No other lesions, rashes, or wounds. NEURO: Alert and Oriented X 3. No gross sensory deficits, or cognitive issues. PSYCH: Appropriate affect and mood. Meds Home Medications and Allergies Home Medications Medication Instructions Recorded Confirmed Type dofetilide 125 mcg capsule 250 mcg PO Q12H 08/07/19 09/29/19 History furosemide 20 mg tablet 20 mg PO DAILY 08/07/19 09/29/19 History irbesartan 150 mg tablet 150 mg PO DAILY 08/07/19 09/29/19 History sertraline 50 mg tablet 50 mg PO DAILY 08/07/19 09/29/19 History tamsulosin 0.4 mg capsule 0.4 mg PO DAILY 08/07/19 09/29/19 History warfarin 7.5 mg tablet See Rx Instructions .ROUTE .COMPLEX 08/07/19 09/29/19 History albuterol sulfate [Ventolin HFA] 1 puff INHALATION QID 09/29/19 09/29/19 History tiotropium-olodaterol [Stiolto 2 puff INHALATION DAILY 09/29/19 09/29/19 History Respimat] triamcinolone acetonide [Nasacort] 1 spray INTRANASAL DAILY PRN 09/29/19 09/29/19 History Allergies Allergy/AdvReac Type Severity Reaction Status Date / Time No Known Drug Allergies Allergy Verified 09/23/19 13:12 Exam Vital Signs (past 8 hours): - 09/30/19 05:25 Temperature 97.8 F Pulse Rate 62 Respiratory Rate 18 Blood Pressure 108/57 L Pulse Oximetry 97 Oxygen Delivery Method CPAP Oxygen Flow Rate 0 Objective Labs Result Diagrams: 09/30/19 05:55 09/30/19 05:55 Labs: Laboratory Results - last 24 hr 09/29/19 09/29/19 09/29/19 20:09 20:09 20:09 WBC 8.1 RBC 3.83 L Hgb 11.6 L Hct 33.6 L MCV 87.8 MCH 30.3 MCHC 34.5 RDW 13.8 Plt Count 289 Neut % (Auto) 68.4 Lymph % (Auto) 20.9 L [place] % (Auto) 9.0 Eos % (Auto) 0.8 L Baso % (Auto) 0.9 Neut # (Auto) 5600 Lymph # (Auto) 1700 [place] # (Auto) 700 Eos # (Auto) 100 Baso # (Auto) 100 PT 41.1 H INR 3.5 H APTT 44 H D-Dimer Sodium 135 L Potassium 4.3 Chloride 103 Carbon Dioxide 23 BUN 56 H Creatinine 0.90 Estimated GFR > 60.0 BUN/Creatinine Ratio 62.2 H Glucose 106 Calcium 8.7 Total Bilirubin 0.3 AST 23 ALT 16 Alkaline Phosphatase 65 Total Protein 6.7 Albumin 3.9 Globulin 2.8 Albumin/Globulin Ratio 1.4 Blood Type Antibody Screen 09/29/19 09/29/19 09/30/19 20:09 20:09 01:55 WBC 7.4 RBC 3.25 L Hgb 9.9 L Hct 28.8 L MCV 88.4 MCH 30.5 MCHC 34.5 RDW 13.7 Plt Count 226 Neut % (Auto) Lymph % (Auto) [place] % (Auto) Eos % (Auto) Baso % (Auto) Neut # (Auto) Lymph # (Auto) [place] # (Auto) Eos # (Auto) Baso # (Auto) PT INR APTT D-Dimer 735 H Sodium Potassium Chloride Carbon Dioxide BUN Creatinine Estimated GFR BUN/Creatinine Ratio Glucose Calcium Total Bilirubin AST ALT Alkaline Phosphatase Total Protein Albumin Globulin Albumin/Globulin Ratio Blood Type A Positive Antibody Screen Negative 09/30/19 09/30/19 05:55 05:55 WBC 6.3 RBC 3.25 L Hgb 9.9 L Hct 29.2 L MCV 89.9 MCH 30.4 MCHC 33.8 RDW 13.9 Plt Count 228 Neut % (Auto) 57.1 Lymph % (Auto) 29.3 [place] % (Auto) 10.9 Eos % (Auto) 2.0 Baso % (Auto) 0.7 Neut # (Auto) 3600 Lymph # (Auto) 1800 [place] # (Auto) 700 Eos # (Auto) 100 Baso # (Auto) 0 PT INR APTT D-Dimer Sodium 136 L Potassium 3.9 Chloride 105 Carbon Dioxide 24 BUN 40 H Creatinine 0.80 Estimated GFR > 60.0 BUN/Creatinine Ratio 50.0 H Glucose 98 Calcium 8.4 Total Bilirubin AST ALT Alkaline Phosphatase Total Protein Albumin Globulin Albumin/Globulin Ratio Blood Type Antibody Screen Assessment & Plan Assessment and plan (1) Status cardiac pacemaker: Current visit: Yes Status: Chronic (2) Acute GI bleeding: Current visit: Yes Status: Acute (3) Atrial fibrillation: Current visit: No Status: Acute (4) Over-anticoagulated: Current visit: Yes Status: Acute (5) Anticoagulated by anticoagulation treatment: Current visit: Yes Status: Acute Assessment & Plan narrative: This is a 74-year-old man with dark stool and supratherapeutic INR. He has had a recent colonoscopy, but never had an EGD. I've ordered a repeat INR this morning, and posted him on the endoscopy schedule for Dr. New to do an EGD later today depending on the INR results. Plan: NPO Hold anticoagulation Follow-up repeat INR Possibly EGD later today with Dr. New Time Spent With Patient Time with patient: 25 - 35 minutes
[2019-09-30] MEDS: PANTOPRAZOLE 40 MG VIAL IV (08:28)
[2019-09-30] MEDS: SODIUM CHLORIDE 0.9% FLUSH 10 ML IV ×3 (08:33→19:37)
[2019-09-30] MEDS: SODIUM CHLORIDE 0.9% 1,000 ML 150 ML IV ×2 (09:18→11:44)
--- NOTE | 2019-09-30 09:20 | CM.DANOTE ---
DCP/Assessment: Reviewed chart. Patient is a 74yr old male admitted to [facility] with GI bleed and SOB. Primary payor is 1)Medicare 2) for Life. PCP is Dr. Justice. Met with patient explained CM/SW role. Patient alert and oriented at time of visit. Patient currently NPO and expected to have EGD today? Patient reports high INR so he is unsure if he will have surgery today. Patient reports that he is completely I in all ADL's. Patient uses CPAP at home x12yrs. Patient denies any d/c planning needs at this time. P: Home with supportive spouse when medically stable. LEW Barry Discharge Planning/Care Management CM Discharge Assessment Start: 09/30/19 09:17 Freq: Status: Active Protocol: Document 09/30/19 09:17 KJS (Rec: 09/30/19 09:20 KJS [id number]) Discharge Planning Assessment Assigned Purification Director LEW Barry Contact Information Grecia Rodrigues (spouse) Advance Directives? Yes History Provided By Patient,Medical Record Prior Living Arrangements House Household Members spouse Type of transporation used prior to Drives own vehicle admit Independent with ADL's Yes Is patient alert and oriented? Yes Caregiver for Another No Comment Uses CPAP x12yrs for sleep apnea. Barriers to Discharge No Discharge Plan Home Transportation Arrangement Spouse to provide transport home. Additional Comment CM team continue to follow if needs were to arise. Whiteboard Updated in Patient Room with Yes name and ext. # of Purification Director Review Status In Process Next Review Type Continued Stay Review
--- NOTE | 2019-09-30 09:37 | P.PN_ITS ---
Subjective Subjective Date Patient Seen: 09/30/19 Interval history: Kash Mcdaniels is a 74-year-old male with a past medical history significant for hypertension, persistent atrial fibrillation on warfarin, BUDDY on CPAP, COPD, BPH, depression and recent umbilical hernia repair on 09/23/2019 who presented with abrupt onset melena and progressive worsening shortness of breath. The patient is resting in bed comfortably. He has no complaints and relays that his care has been exceptional by everyone he has encountered. He reports his shortness of breath, lightheadedness and dizziness have resolved. He continues to have melanotic stool which informed him is to be expected. Discussed endoscopy findings which demonstrated bleeding duodenal ulcer now status post cauterization. Plan to monitor patient's hemodynamics and for signs of overt bleeding overnight and advance diet to heart healthy as tolerated. He has no complaints and denies headache, shortness of breath, chest pain, abdominal pain, nausea, vomiting, fever, chills, or dysuria. He is voiding and eliminating without difficulty. He is up ambulating with assistance. Exam Vital Signs (past 8 hours): - 09/30/19 11:39 09/30/19 12:55 09/30/19 13:00 Temperature 97.8 F 98.5 F Pulse Rate 62 60 60 Respiratory Rate 16 20 14 Blood Pressure 97/65 167/69 H 161/86 H Pulse Oximetry 97 94 96 09/30/19 13:05 09/30/19 13:10 09/30/19 13:25 Temperature Pulse Rate 60 60 60 Respiratory Rate 14 17 12 Blood Pressure 162/86 H 161/81 H 143/76 H Pulse Oximetry 94 94 95 09/30/19 13:35 09/30/19 14:05 09/30/19 15:21 Temperature 97.2 F L 98.7 F 97.4 F L Pulse Rate 64 60 60 Respiratory Rate 18 18 18 Blood Pressure 137/79 123/62 116/67 Pulse Oximetry 98 98 97 09/30/19 19:15 Temperature 97.7 F Pulse Rate 61 Respiratory Rate 18 Blood Pressure 113/65 Pulse Oximetry 97 Oxygen Delivery Method Room Air Oxygen Flow Rate 0 Narrative Exam Narrative: General: Elderly gentleman sitting in bed and in no acute distress, very pleasant and in good spirits, well-developed, well-nourished, appropriately interactive. HEENT: Normocephalic, atraumatic. External ears without defect. Pupils equal, round, and reactive to light. Anicteric sclerae, moist conjunctivae, and no lid lag. Oropharynx free of erythema and cobble stoning with moist mucosa. Neck: Supple with full range of motion. No jugular venous distension. No lymphadenopathy or thyromegaly. Cardiovascular: Regular rate and rhythm without murmurs, rubs, or gallops appreciated. Pulmonary: Clear to auscultation bilaterally without crackles, wheezes, or rhonchi. Normal respiratory effort with no use of accessory muscles. Abdomen: Soft, bowel sounds present, nontender, nondistended. No hepatosplen omegaly or masses appreciated. Extremities: No clubbing, cyanosis, or edema. Skin: Normal temperature, turgor, and texture; no rash, ulcers, or subcutaneous nodules appreciated. Neurological: Cranial nerves grossly intact. Psychiatric: Normal mood and affect. Alert and oriented to person, place, and time. Objective Labs Result Diagrams: 09/30/19 05:55 09/30/19 05:55 Labs: Laboratory Results - last 24 hr 09/29/19 09/29/19 09/29/19 20:09 20:09 20:09 WBC 8.1 RBC 3.83 L Hgb 11.6 L Hct 33.6 L MCV 87.8 MCH 30.3 MCHC 34.5 RDW 13.8 Plt Count 289 Neut % (Auto) 68.4 Lymph % (Auto) 20.[address] [place] % (Auto) 9.0 Eos % (Auto) 0.8 L Baso % (Auto) 0.9 Neut # (Auto) 5600 Lymph # (Auto) 1700 [place] # (Auto) 700 Eos # (Auto) 100 Baso # (Auto) 100 PT 41.1 H INR 3.5 H APTT 44 H D-Dimer Sodium 135 L Potassium 4.3 Chloride 103 Carbon Dioxide 23 BUN 56 H Creatinine 0.90 Estimated GFR > 60.0 BUN/Creatinine Ratio 62.2 H Glucose 106 Calcium 8.7 Magnesium Total Bilirubin 0.3 AST 23 ALT 16 Alkaline Phosphatase 65 Total Protein 6.7 Albumin 3.9 Globulin 2.8 Albumin/Globulin Ratio 1.4 Blood Type Antibody Screen 09/29/19 09/29/19 09/30/19 20:09 20:09 01:55 WBC 7.4 RBC 3.25 L Hgb 9.9 L Hct 28.8 L MCV 88.4 MCH 30.5 MCHC 34.5 RDW 13.7 Plt Count 226 Neut % (Auto) Lymph % (Auto) [place] % (Auto) Eos % (Auto) Baso % (Auto) Neut # (Auto) Lymph # (Auto) [place] # (Auto) Eos # (Auto) Baso # (Auto) PT INR APTT D-Dimer 735 H Sodium Potassium Chloride Carbon Dioxide BUN Creatinine Estimated GFR BUN/Creatinine Ratio Glucose Calcium Magnesium Total Bilirubin AST ALT Alkaline Phosphatase Total Protein Albumin Globulin Albumin/Globulin Ratio Blood Type A Positive Antibody Screen Negative 09/30/19 09/30/19 09/30/19 05:55 05:55 05:55 WBC 6.3 RBC 3.25 L Hgb 9.9 L Hct 29.2 L MCV 89.9 MCH 30.4 MCHC 33.8 RDW 13.9 Plt Count 228 Neut % (Auto) 57.1 Lymph % (Auto) 29.3 [place] % (Auto) 10.9 Eos % (Auto) 2.0 Baso % (Auto) 0.7 Neut # (Auto) 3600 Lymph # (Auto) 1800 [place] # (Auto) 700 Eos # (Auto) 100 Baso # (Auto) 0 PT INR APTT D-Dimer Sodium 136 L Potassium 3.9 Chloride 105 Carbon Dioxide 24 BUN 40 H Creatinine 0.80 Estimated GFR > 60.0 BUN/Creatinine Ratio 50.0 H Glucose 98 Calcium 8.4 Magnesium 2.0 Total Bilirubin AST ALT Alkaline Phosphatase Total Protein Albumin Globulin Albumin/Globulin Ratio Blood Type Antibody Screen 09/30/19 09/30/19 09:56 14:35 WBC RBC Hgb Hct MCV MCH MCHC RDW Plt Count Neut % (Auto) Lymph % (Auto) [place] % (Auto) Eos % (Auto) Baso % (Auto) Neut # (Auto) Lymph # (Auto) [place] # (Auto) Eos # (Auto) Baso # (Auto) PT 39.5 H 33.7 H D INR 3.4 H 2.9 H APTT D-Dimer Sodium Potassium Chloride Carbon Dioxide BUN Creatinine Estimated GFR BUN/Creatinine Ratio Glucose Calcium Magnesium Total Bilirubin AST ALT Alkaline Phosphatase Total Protein Albumin Globulin Albumin/Globulin Ratio Blood Type Antibody Screen Assessment & Plan Assessment & Plan narrative: Kash Mcdaniels is a 74-year-old male with a past medical history significant for hypertension, persistent atrial fibrillation on warfarin, BUDDY on CPAP, COPD, BPH, depression and recent umbilical hernia repair on 09/23/2019 who presented with abrupt onset melena and progressive worsening shortness of breath. 1. Acute upper GI bleed with acute blood loss anemia, present on admission. Active. -Patient presented with several episodes of melanotic stool and associated progressive worsening shortness of breath, lightheadedness and dizziness. Patient with recent GI stressing event with umbilical hernia repair requiring hospitalization and occasional use of Aleve. -Received Protonix 40 mg IV x1 in ED. Continue Protonix 40 mg IV daily. -Initial hemoglobin 11.6. Hemoglobin trended down to 9.9. Patient is hemodyna mically stable. Continue to monitor for overt signs of bleeding and H&H closely. -Continue to monitor closely on telemetry. -Continue to hold warfarin as below. -Consulted general surgery, Dr. New, who plans to perform EGD later this afternoon. We appreciate his time and care of the patient. 2. Hypertension, chronic, present on admission. Stable. -Held irbesartan 150 mg daily and furosemide 20 mg daily due to GI bleed as above. Patient denies history of CHF. 3. Persistent atrial fibrillation on warfarin, chronic, present on admission. Stable. -Patient is V paced with underlying atrial fibrillation versus junctional rhythm. -Held warfarin due to GI bleed. Patient's INR was supratherapeutic at 3.5 likely due to recent antibiotic received during umbilical hernia repair and received vitamin K 5 mg PO in ED. INR currently 2.9. -Continue dofetilide 250 mcg twice daily. 4. COPD, present on admission. Stable. -Does not represent COPD exacerbation. -Continue home inhalers with albuterol 1 puff 4 times daily as needed for shortness of breath or wheezing and Stiolto Respimat 2 puffs daily. 5. BPH, chronic, present on admission. Stable. -Continue tamsulosin 0.4 mg daily. 6. Depression, chronic, present on admission. Stable. -Continue sertraline 50 mg daily. 7. BUDDY on CPAP, chronic, present on admission. Stable. -Continue home CPAP. Code status: Full code VTE prophylaxis: SCDs and warfarin Disposition: Patient likely to discharge home tomorrow pending his H&H are stable and he has no other recurrence of bleeding. Quality VTE Deep Vein Thrombosis/Pulmonary Embolism Present on Admission: No
[2019-09-30 10:51] LABS: INR 3.4 (0.9-1.3); Prothrombin Time 39.5 SECONDS (10.1-12.7)
--- NOTE | 2019-09-30 11:31 | PC.NURSE ---
Addendum entered by Tawana Gtz R.N. 09/30/19 15:32: Late entry- Back to floor approx 1330- VSS. Denies pain. Tolerating clear liquids without N/V. Re-connected to IV fluids per previous order. Encouraged to make needs known. Call light within reach, bed alarm on. Original Note: Off floor to surgery at this time. Transported via wheelchair. Transport staff aware that consent would still need to be signed.
[2019-09-30] MEDS: LIDOCAINE 4% SOLN 50 ML 20 ML TOP (12:52)
--- NOTE | 2019-09-30 12:52 | PM.OP.ENDO ---
Operative Date/Time/Diagnoses Date of procedure: 09/30/19 Time of procedure: 12:52 Pre-op diagnosis: GI bleed Post-op diagnosis: same Procedure & Clinicians Study performed: Esophagoduodenoscopy Same procedure as scheduled: Yes Indications: 74-year-old male on Coumadin presents with melanotic stool. Surgeon: Jordy New Procedure Notes SCOAP/Timeout: Performed Procedure in detail: Patient placed in left lateral decubitus position. Time out was performed. Procedural sedation was administered with Versed and Fentanyl. A bite block was placed. the scope was inserted into the mouth and advanced through the esophagus and into the stomach. The pylorus was intubated. Within the 1st portion of the duodenum there was a small actively bleeding ulcer with no visible vessel. The 2nd portion of the duodenum was normal. 2 mg of epinephrine was injected subcutaneously within the base of the ulcer. Subsequently bipolar cautery was applied to the ulcer. Hemostasis was achieved. I did not biopsy the intestine given that his INR is currently 3.5, I suspect this is secondary to H pylori. The scope was retroflexed within the stomach and there was no hiatal hernia. No gastric ulcers, or gastritis. The scope was withdrawn into the esophagus the Z line was seen at 35 cm from the incisions. There was no munroe's esophagitis or masses or strictures. Stomach was desufflated and scope removed. Patient tolerated procedure well. Findings: other findings (Duodenal ulcer 1st portion) Specimen(s): none sent Complications: none Impression: Duodenal ulcer Post-procedure Recommendations: EGD in 6-8 weeks Plan for aftercare: Metronidazole clarithromycin PPI H pylori antigen, rescope in 2 months Disposition: Acute Care
[2019-09-30] MEDS: fentaNYL 250 MCG/5 ML INJ IV (12:53)
[2019-09-30] MEDS: MIDAZOLAM 5 MG/5 ML VIAL IV (12:54)
[2019-09-30] MEDS: EPINEPHrine 1 MG/10 ML SYRINGE IV (12:54)
[2019-09-30] MEDS: CLARITHROMYCIN 500 MG TABLET PO ×2 (14:51→21:38)
[2019-09-30] MEDS: metroNIDAZOLE 500 MG TABLET PO ×2 (14:53→19:36)
[2019-09-30 14:57] LABS: INR 2.9 (0.9-1.3); Prothrombin Time 33.7 SECONDS (10.1-12.7)
[2019-09-30] MEDS: DOFETILIDE 250 MCG 250 EACH PO (19:36)
[2019-10-01 00:20] VITALS: BP 124/76; PULSE 63; RESP 16; TEMP 37.1; O2SAT 97
[2019-10-01 05:09] VITALS: BP 102/72; PULSE 65; RESP 18; TEMP 37.1; O2SAT 97
[2019-10-01 05:46] LABS: Add Manual Diff / Slide Review NO; Basophils Absolute Auto 0 /uL (0-100); Basophils Percent Auto 0.8 % (0-2); Eosinophils Absolute Auto 200 /uL (0-450); Eosinophils Percent Auto 3.1 % (2-4); Hematocrit 27.5 % (41-53); Hemoglobin 9.3 g/dL (13.5-17.5); INR 2.2 (0.9-1.3); Lymphocytes Absolute Auto 1700 /uL (1100-4500); Lymphocytes Percent Auto 28.8 % (25-40); Mean Corpuscular Hemoglobin 30.3 PG (26-34); Mean Corpuscular Volume 89.2 fL (80-100); Monocytes Absolute Auto 600 /uL (0-900); Neutrophils Absolute Auto 3400 /uL (1500-7000); Neutrophils Percent Auto 57.3 % (50-75); Platelet Count 232 X10^3/uL (150-400); Prothrombin Time 25.7 SECONDS (10.1-12.7); Red Blood Cell Count 3.08 X10^6/uL (4.5-5.9); Red Cell Distribution Width 13.8 % (11.6-14.8); White Blood Cell Count 5.9 X10^3/uL (4.5-11.0)
[2019-10-01 08:05] VITALS: BP 119/76; PULSE 66; RESP 16; TEMP 36.9; O2SAT 97
--- NOTE | 2019-10-01 08:30 | PM.PN.1 ---
Subjective Subjective Date Patient Seen: 10/01/19 Time Patient Seen: 08:31 Interval history: No acute interval events. No abdominal pain, fever nausea vomiting hematemesis or melena. Exam Vital Signs (past 8 hours): - 10/01/19 05:09 10/01/19 08:05 Temperature 98.7 F 98.4 F Pulse Rate 65 66 Respiratory Rate 18 16 Blood Pressure 102/72 119/76 Pulse Oximetry 97 97 Oxygen Delivery Method Room Air,CPAP Oxygen Flow Rate 0 Narrative Exam Narrative: General adult male alert oriented no acute distress Abdomen soft nontender nondistended. Objective Labs Result Diagrams: 10/01/19 05:20 09/30/19 05:55 Labs: Laboratory Results - last 24 hr 09/30/19 09/30/19 09/30/19 05:55 09:56 14:35 WBC RBC Hgb Hct MCV MCH MCHC RDW Plt Count Neut % (Auto) Lymph % (Auto) [place] % (Auto) Eos % (Auto) Baso % (Auto) Neut # (Auto) Lymph # (Auto) [place] # (Auto) Eos # (Auto) Baso # (Auto) PT 39.5 H 33.7 H D INR 3.4 H 2.9 H Magnesium 2.0 10/01/19 10/01/19 05:20 05:20 WBC 5.9 RBC 3.08 L Hgb 9.3 L Hct 27.5 L MCV 89.2 MCH 30.3 MCHC 34.0 RDW 13.8 Plt Count 232 Neut % (Auto) 57.3 Lymph % (Auto) 28.8 [place] % (Auto) 10.0 Eos % (Auto) 3.1 Baso % (Auto) 0.8 Neut # (Auto) 3400 Lymph # (Auto) 1700 [place] # (Auto) 600 Eos # (Auto) 200 Baso # (Auto) 0 PT 25.7 H D INR 2.2 H Magnesium Assessment & Plan Assessment and plan (1) Duodenal ulcer: Current visit: Yes Status: Acute Assessment & Plan narrative: This 74-year-old male on anticoagulation for atrial fibrillation who's admitted with a hemodynamically stable upper GI bleed. I performed an EGD on him yesterday which demonstrated an actively bleeding duodenal ulcer in the 1st portion of the duodenum. The ulcer was injected with epinephrine and cauterized with observation of hemostasis. No biopsy was taken at that time because of his anticoagulation. I suspect this is secondary to H pylori. Empiric treatment was started. Okay for discharge today. Needs triple antibiotic therapy. I will arrange a repeat upper endoscopy in 2 months time to evaluate for healing of the ulcer. Quality VTE Deep Vein Thrombosis/Pulmonary Embolism Present on Admission: No
[2019-10-01] MEDS: DOFETILIDE 250 MCG 250 EACH PO (08:43)
[2019-10-01] MEDS: CLARITHROMYCIN 500 MG TABLET PO (08:43)
[2019-10-01] MEDS: SODIUM CHLORIDE 0.9% FLUSH 10 ML IV (08:43)
[2019-10-01] MEDS: PANTOPRAZOLE 20 MG TABLET PO (08:45)
[2019-10-01] MEDS: metroNIDAZOLE 500 MG TABLET PO (08:45)
[2019-10-01 09:51] VITALS: BP 115/56
--- NOTE | 2019-10-01 10:47 | PM.DS.1 ---
History of Present Illness History of Present Illness Date Patient Seen: 09/29/19 Chief complaint: cant catch breath, other weird symptoms all day Narrative: Written by Tracey BLACKBURN: Kash Mcdaniels is a 74 y.o. male with atrial fibrillation anticoagulated on warfarin who has a dual chamber pacemaker, a recent history of umbilical hernia repair on September 23, a one day history of sudden onset shortness of breath which lasted the better part of today. He also stated he was lightheaded and dizzy, worsening when he stood up. He ate an apple and later had soup followed by 4 bowel movements with dark tarry stool. He also states he drinks a lot of water due to working out and had 7 or 8 -14 oz glasses of water and has been urinating infrequently and with little output compared to normal. States positive to his eyes having a burning sensation, a dry cough, shortness of breath which is new, having cold hands, hips, knees over the past week, and now the rectal bleeding. Denies chest pain. Patient has persistent atrial fibrillation and had a dual chamber pacemaker placed in July 2018. He is followed by [facility] in [place]. His business analytics specialist has left and he has followed up with nursing visits, but has not seen a cardiology provider since his business analytics specialist left. Per information in the record, he appears to follow with [facility] last seen in June 2019. His last echo was done 08/02/19 indicating mild LVH with a normal EF of 65% with mild to moderate mitral regurgitation and trace tricuspid regurgitation. He is rate and rhythm controlled on dofetilide and takes warfarin 7.5 mg daily for 6 days and on Sundays, takes 15 mg. Due to his recent surgery, he went off his warfarin for 5 days, but has resumed it. Discharge Providers Provider Date of admission: 09/29/19 20:58 Discharge Date: 10/01/19 Primary care physician: Gerald Justice MD Consults: 09/29/19 22:09 Consult to General Surgery Routine Comment: Consulting Provider: Jordy New Reason for consultation: black tarry stool, suspect UGIB 09/30/19 11:49 Consult to Respiratory Therapy Evaluate & Treat Comment: Physician Instructions: Evaluate and treat Discharge provider: Jayla Stubbs DO Summary Hospital Course Discharge Diagnosis: 1. Acute upper GI bleed with acute blood loss anemia, present on admission. Resolved. 2. Hypertension, chronic, present on admission. Stable. 3. Persistent atrial fibrillation on warfarin, chronic, present on admission. Stable. 4. COPD, present on admission. Stable. 5. BPH, chronic, present on admission. Stable. 6. Depression, chronic, present on admission. Stable. 7. BUDDY on CPAP, chronic, present on admission. Stable. Hospital Course: Kash Mcdaniels is a 74-year-old male with a past medical history significant for hypertension, persistent atrial fibrillation on warfarin, BUDDY on CPAP, COPD, BPH, depression and recent umbilical hernia repair on 09/23/2019 who presented with abrupt onset melena and progressive worsening shortness of breath. 1. Acute upper GI bleed with acute blood loss anemia, present on admission. Resolved. -Patient presented with several episodes of melanotic stool and associated progressive worsening shortness of breath, lightheadedness and dizziness. Patient with recent GI stressing event with umbilical hernia repair requiring hospitalization and occasional use of Aleve. -Received Protonix 40 mg IV x1 in ED. Continue Protonix 40 mg IV daily. -Initial hemoglobin 11.6. Hemoglobin trended down now 9.3. Patient is hemodynamically stable. Continued to monitor for overt signs of bleeding and H&H closely. Patient continues to have melanotic stool which is dissipating and frequency and quantity. Transfusion goal hemoglobin < 8.0. Recommend repeat blood counts on 10/03/2019 per PCP at hospital follow-up appointment. -Continued to monitor closely on telemetry. -Continued to hold warfarin as below. -Consulted general surgery, Dr. New, who performed EGD and which demonstrated bleeding duodenal ulcer status post cauterization and hemostasis. General surgery recommends triple antibiotic therapy to treat possible H. pylori and continue PPI thereafter until repeat endoscopy in 8 weeks. 2. Hypertension, chronic, present on admission. Stable. -Held irbesartan 150 mg daily and furosemide 20 mg daily due to GI bleed as above and may restart tomorrow. Patient denies history of CHF. 3. Persistent atrial fibrillation on warfarin, chronic, present on admission. Stable. -Patient is V paced with underlying atrial fibrillation versus junctional rhythm. -Held warfarin due to GI bleed. Patient's INR was supratherapeutic at 3.5 likely due to recent antibiotics received during umbilical hernia repair and received vitamin K 5 mg PO in ED. INR now down to 2.2. and per general surgery can restart warfarin tomorrow. Continue outpatient INR monitoring per PCP. -Continued dofetilide 250 mcg twice daily. 4. COPD, present on admission. Stable. -Does not represent COPD exacerbation. -Continued home inhalers with albuterol 1 puff 4 times daily as needed for shortness of breath or wheezing and Stiolto Respimat 2 puffs daily. 5. BPH, chronic, present on admission. Stable. -Continued tamsulosin 0.4 mg daily. 6. Depression, chronic, present on admission. Stable. -Continued sertraline 50 mg daily. 7. BUDDY on CPAP, chronic, present on admission. Stable. -Continued home CPAP. Exam Vital Signs (past 8 hours): - 10/01/19 05:09 10/01/19 08:05 10/01/19 09:51 Temperature 98.7 F 98.4 F Pulse Rate 65 66 Respiratory Rate 18 16 Blood Pressure 102/72 119/76 115/56 L Pulse Oximetry 97 97 Oxygen Delivery Method Room Air Oxygen Flow Rate 0 Narrative Exam Narrative: General: Elderly gentleman sitting in bed and in no acute distress, well-developed, well-nourished, appropriately interactive. HEENT: Normocephalic, atraumatic. External ears without defect. Pupils equal, round, and reactive to light. Anicteric sclerae, moist conjunctivae, and no lid lag. Neck: Supple with full range of motion. No jugular venous distension. No lymphadenopathy or thyromegaly. Cardiovascular: Regular rate and rhythm without murmurs, rubs, or gallops appreciated. Pulmonary: Clear to auscultation bilaterally without crackles, wheezes, or rhonchi. Normal respiratory effort with no use of accessory muscles. Abdomen: Soft, bowel sounds present, nontender, nondistended. No hepatosplenomegaly or masses appreciated. Extremities: No clubbing, cyanosis, or edema. Skin: Normal temperature, turgor, and texture; no rash, ulcers, or subcutaneous nodules appreciated. Neurological: Cranial nerves grossly intact. Psychiatric: Normal mood and affect. Alert and oriented to person, place, and time. Objective Labs Result Diagrams: 10/01/19 05:20 09/30/19 05:55 Labs: Laboratory Results - last 24 hr 09/30/19 09/30/19 09/30/19 05:55 09:56 14:35 WBC RBC Hgb Hct MCV MCH MCHC RDW Plt Count Neut % (Auto) Lymph % (Auto) [place] % (Auto) Eos % (Auto) Baso % (Auto) Neut # (Auto) Lymph # (Auto) [place] # (Auto) Eos # (Auto) Baso # (Auto) PT 39.5 H 33.7 H D INR 3.4 H 2.9 H Magnesium 2.0 10/01/19 10/01/19 05:20 05:20 WBC 5.9 RBC 3.08 L Hgb 9.3 L Hct 27.5 L MCV 89.2 MCH 30.3 MCHC 34.0 RDW 13.8 Plt Count 232 Neut % (Auto) 57.3 Lymph % (Auto) 28.8 [place] % (Auto) 10.0 Eos % (Auto) 3.1 Baso % (Auto) 0.8 Neut # (Auto) 3400 Lymph # (Auto) 1700 [place] # (Auto) 600 Eos # (Auto) 200 Baso # (Auto) 0 PT 25.7 H D INR 2.2 H Magnesium Discharge Plan Discharge Plan Patient Disposition: Home Discharge comment: You're being discharged home. You had an ulcer in your duodenum that was bleeding and has been cauterized and stopped. You are being treated for H. pylori at bacteria that causes peptic ulcers. You have been prescribed triple therapy to eradicate H. pylori which includes: Clarithromycin 500 mg twice daily for 14 days (received 3 doses already), metronidazole 500 mg 3 times daily for 14 days, and pantoprazole 20 mg twice daily for 8 weeks. Please follow-up with your PCP, Dr. Alexander, regarding your hospitalization and to have your blood counts and INR checked (INR 2.2. today) at your scheduled appointment on 10/03/2019 at 10:00 a.m. Please follow-up with general surgery, Dr. New, in 2 months to have a repeat endoscopy to reassess and make sure that your ulcer has healed completely. You may restart your warfarin tomorrow at your normal dosing per general surgery. Please keep monitor your bowel movements which should be decreasing in frequency and return to normal brown, soft stool in the next 1 or 2 days. If your bowel movements are increasing in frequency and continue to be black and/or you begin to have shortness of breath, fatigue, lightheadedness or dizziness, feeling faint or pass out please call 911 and return to the ED immediately. Discharge orders & Medications Prescriptions: New clarithromycin 500 mg Tablet 500 mg PO BID Qty: 25 RF: 0 metronidazole 500 mg Tablet 500 mg PO TID Qty: 39 RF: 0 pantoprazole 20 mg Tablet,Delayed Release (Dr/Ec) 20 mg PO 0700,2100 Qty: 60 RF: 0 Continued warfarin [Coumadin] 7.5 mg tablet See Rx Instructions .ROUTE .COMPLEX RF: 0 dofetilide [Tikosyn] 125 mcg capsule 250 mcg PO Q12H RF: 0 irbesartan [Avapro] 150 mg tablet 150 mg PO DAILY RF: 0 furosemide 20 mg tablet 20 mg PO DAILY RF: 0 sertraline 50 mg tablet 50 mg PO DAILY RF: 0 tamsulosin [Flomax] 0.4 mg capsule 0.4 mg PO DAILY RF: 0 triamcinolone acetonide [Nasacort] 55 mcg Aerosol,[place] 1 spray INTRANASAL DAILY PRN (Reason: Allergy Symptoms) RF: 0 albuterol sulfate [Ventolin HFA] 90 mcg/actuation Hfa Aerosol Inhaler 1 puff INHALATION QID RF: 0 Stiolto Respimat 2.5-2.5 mcg/actuation Mist 2 puff INHALATION DAILY RF: 0 Other Ambulatory Orders: Complete Blood Count AUTO DIFF (Stat) Timeframe: 3 Days Facility: [facility] - Location: Laboratory Ordered By: Jayla Stubbs Prothrombin Time INR (Routine) Timeframe: 3 Days Facility: [facility] - Location: Laboratory Ordered By: Jayla Stubbs Follow up/Referrals: Gerald Justice MD [Primary Care Provider] - 10/03/19 10:00 am (appt:10/03 @ 10:[address] garcia please arrive 15 minutes prior to your scheduled appointment) Diet/Activity/Treatments Diet: Diet as Tolerated, Low-fat, Low-sodium and Low-cholesterol Activity: Activity as tolerated Visit Report/Discharge Packet Instructions: Duodenal Ulcer, DI for Peptic Ulcer, Pantoprazole, Metronidazole, Clarithromycin Visit Report Forms: Patient Portal/API, Stroke Signs & Symptoms Discharge Data Primary Care Provider: Gerald Justice VTE Deep Vein Thrombosis/Pulmonary Embolism Present on Admission: No
--- NOTE | 2019-10-01 12:18 | PC.NURSE ---
Discharge: IV dc'd intact. Tele dc'd. Home med Tikosin retrieved from pharmacy and returned to patient. Reviewed all d/c instructions thoroughly with patient and his . Scripts being sent to [facility] per patient request. Given f/u info, instructed to have CBC/INR/labs drawn at his appointment. Reviewed s/sx with which to call 911/return to hospital. Encouraged to call Dr New's office if he doesn't hear from them re: his EGD in 6-8 weeks. Patient verbalized understanding of all instructions and stated no further questions. All belongings sent with patient at discharge. Wheeled out to private vehicle by nursing staff.
== END 2019-10-01 12:21 | disposition home or self-care (01) | DRG 378 ==
LOC: ED 20:43 → AC 20:59
PROVIDERS: Internal Medicine; Surgery; Admitting Provider Nurse Practitioner Family; Emergency Provider Emergency Medicine; PCP Internal Medicine; Visit Provider Nurse Practitioner Family
PROC: 0DJ08ZZ Inspection of Upper Intestinal Tract, Via Natural or Artificial Opening Endoscopic (ICD-10-PCS; CPT 43235; principal; 2019-09-30 12:15)
DX: K26.4 Chronic or unspecified duodenal ulcer with hemorrhage (principal); I48.11 Longstanding persistent atrial fibrillation; D62 Acute posthemorrhagic anemia; R79.1 Abnormal coagulation profile; B96.81 Helicobacter pylori [H. pylori] as the cause of diseases classified elsewhere; J44.9 Chronic obstructive pulmonary disease, unspecified; N40.0 Benign prostatic hyperplasia without lower urinary tract symptoms; I25.10 Atherosclerotic heart disease of native coronary artery without angina pectoris; K21.9 Gastro-esophageal reflux disease without esophagitis; F32.9 Major depressive disorder, single episode, unspecified; G47.33 Obstructive sleep apnea (adult) (pediatric); I10 Essential (primary) hypertension; Z95.0 Presence of cardiac pacemaker; Z79.01 Long term (current) use of anticoagulants; Z87.891 Personal history of nicotine dependence
CPT/HCPCS: 36415; 43236; 51798; 71045; 71275; 80048; 80053; 81003; 82272; 83735; 85025; 85027; 85379; 85610; 85730; 86850; 86900; 86901; 93005; 93010; 96374; 96375; 99231; 99232; 99285; C9113; J0171; J2250; J2405; J3010; Q9967

== ENCOUNTER 2019-12-03 10:14 | Emergency (ER) | payer MEDICARE, OTHER, SELFPAY ==
[2019-12-03 10:15] VITALS: BP 147/83; PULSE 74; RESP 16; TEMP 36.8; O2SAT 100; BMI 38.4
--- NOTE | 2019-12-03 10:29 | ED_ITS ---
HPI - General Adult General Chief complaint: Shortness of Breath/Dyspnea Stated complaint: cough,breathing problems,crap coming out Time Seen by Provider: 12/03/19 10:16 Source: patient Mode of arrival: Ambulatory Limitations: no limitations History of Present Illness HPI narrative: 74-year-old male. Does have a history of COPD. Is on on a inhaler for this. Does not use home oxygen. No sick contacts. Is also on warfarin for atrial fibrillation. Also on Lasix. Has had shortness of breath and dyspnea on exertion for several weeks/months now. Does see a automation and controls manager. Also this followed by his primary provider. Here for evaluation of approximately 3 days of a productive cough. No fevers. No chest pain. Stated that he contacted his automation and controls manager this morning and told him that he should come in for evaluation. No lower extremity swelling. States that he has been taking his medications Related Data Home Medications Medication Instructions Recorded Confirmed dofetilide 125 mcg capsule 250 mcg PO Q12H 08/07/19 09/29/19 furosemide 20 mg tablet 20 mg PO DAILY 08/07/19 09/29/19 irbesartan 150 mg tablet 150 mg PO DAILY 08/07/19 09/29/19 sertraline 50 mg tablet 50 mg PO DAILY 08/07/19 09/29/19 tamsulosin 0.4 mg capsule 0.4 mg PO DAILY 08/07/19 09/29/19 warfarin 7.5 mg tablet See Rx Instructions .ROUTE .COMPLEX 08/07/19 09/29/19 Stiolto Respimat 2 puff INHALATION DAILY 09/29/19 09/29/19 albuterol sulfate [Ventolin HFA] 1 puff INHALATION QID 09/29/19 09/29/19 triamcinolone acetonide [Nasacort] 1 spray INTRANASAL DAILY PRN 09/29/19 09/29/19 Previous Rx's Medication Instructions Recorded clarithromycin 500 mg PO BID #25 tab 10/01/19 metronidazole 500 mg PO TID #39 tab 10/01/19 pantoprazole 20 mg PO 0700,2100 #60 tab 10/01/19 azithromycin See Rx Instructions .ROUTE 12/03/19 .COMPLEX #6 tab Allergies Allergy/AdvReac Type Severity Reaction Status Date / Time No Known Drug Allergies Allergy Verified 12/03/19 10:21 Review of Systems Constitutional Constitutional: Denies chills, Denies fever(s), Denies headache(s) and Denies malaise Eyes Eyes: Denies change in vision ENT Ears, Nose, Mouth, and Throat: Denies headache(s) Cardiovascular Cardiovascular: Denies chest pain, Denies syncope, Denies rapid heart rate, Denies edema, Denies palpitations, Reports dyspnea and Reports dyspnea on exertion Respiratory Respiratory: Reports dyspnea and Reports dyspnea on exertion Gastrointestinal Gastrointestinal: Denies abdominal pain, Denies change in stool character, Denies loose stools, Denies nausea and Denies vomiting Musculoskeletal Musculoskeletal: Denies back pain and Denies arthralgias Integumentary/Breasts Skin/Breast: Denies lesions and Denies rash Neurologic Neurologic: Denies behavioral changes, Denies syncope and Denies headache(s) Psychiatric Psychiatric: Denies behavioral changes Endocrine Endocrine: Denies palpitations Hematologic/Lymphatic Hematologic/Lymphatic: Denies easy bleeding and Denies easy bruising Patient History Medical History Anxiety (Acute) Arrhythmia (Acute) Arthritis (Acute) BPH (benign prostatic hyperplasia) (Acute) Chronic anticoagulation (Acute) COPD (chronic obstructive pulmonary disease) (Acute) Diverticulitis (Acute) Easy bruisability (Acute) GERD (gastroesophageal reflux disease) (Acute) Gout (Acute) History of cardioversion (Acute) HTN (hypertension) (Acute) Hx of agent [place] exposure (Acute) Mitral regurgitation (Acute) Obesity (Acute) Obstructive sleep apnea (Acute) Pacemaker (Acute 06/06/18) Pain (Acute) Seasonal allergies (Acute) Sinus bradycardia (Acute) Surgical History H/O inguinal hernia repair (Acute ~1982) History of surgery (Acute ~2018) Hx of nasal septoplasty (Acute ~1988) Status cardiac pacemaker (Chronic) Social History household members: spouse Smoking Status: Former smoker alcohol intake: never Smoking Status: Former smoker alcohol intake frequency: 0-2 drinks per day Substance Use Type: does not use Exam Initial Vital Signs Initial Vital Signs: Vital Signs Temperature 98.3 F 12/03/19 10:15 Pulse Rate 74 12/03/19 10:15 Respiratory Rate 16 12/03/19 10:15 Blood Pressure 147/83 H 12/03/19 10:15 Pulse Oximetry 100 12/03/19 10:15 Const General: cooperative, healthy appearing, comfortable, well developed and well groomed Limitations: mental status not altered HENMA Head: normal to inspection and normocephalic Resp Effort & Inspection: normal respiratory effort, not labored and not tachypneic Auscultation: rhonchi Cardio Rate: regular rate Rhythm: regular rhythm GI Inspection: non-distended Palpation: soft Skin Lesions: no lesions Rashes: no rashes Neuro General: alert and awake Cognition: normal cognition Speech: speech normal Extrem General: normal to inspection and capillary refill normal Scores GCS Pretty coma scale eye opening: Spontaneous Pretty coma scale verbal response: Orientated [place] coma scale motor response: Obey commands Pretty coma scale total score: 15 Course Orders Ordered: ED Orders 12/03/19 10:29 C-Reactive Protein Quant Stat Complete Blood Count AUTO DIFF Stat Comprehensive Metabolic Panel Stat D Dimer Stat Lactate Dehydrogenase Stat Lipase Stat Partial Thromboplastin Time Stat Procalcitonin Stat Prothrombin Time INR Stat Troponin I Stat 12/03/19 10:31 XR chest 1V Stat EKG-12 Lead Stat Vital Signs Vital signs: Vital Signs - 8 hr 12/03/19 10:15 12/03/19 11:00 12/03/19 11:33 Temperature 98.3 F Pulse Rate 74 87 82 Respiratory Rate 16 13 11 L Blood Pressure 147/83 H Blood Pressure [Left Arm] 123/75 115/66 Pulse Oximetry 100 94 95 12/03/19 12:29 12/03/19 12:30 12/03/19 12:39 Temperature Pulse Rate 91 H 89 83 Respiratory Rate 13 16 14 Blood Pressure 118/79 Blood Pressure [Left Arm] 115/66 121/82 Pulse Oximetry 94 96 95 Medical Decision Making Lab Data Lab results reviewed: Yes I reviewed the patient's lab results. Result diagrams: 12/03/19 10:29 12/03/19 10:29 Labs: Lab Results 12/03/19 12/03/19 12/03/19 Range/Units 10:29 10:29 10:29 WBC 6.7 (4.5-11.0) X10^3/uL RBC 5.49 (4.5-5.9) X10^6/uL Hgb 14.8 (13.5-17.5) g/dL Hct 45.8 (41-53) % MCV 83.5 (80-100) fL MCH 26.9 (26-34) PG MCHC 32.3 (30-36) % RDW 17.3 H (11.6-14.8) % Plt Count 258 (150-400) X10^3/uL Neut % (Auto) 60.6 (50-75) % Lymph % (Auto) 23.4 L (25-40) % [place] % (Auto) 13.7 (3-14) % Eos % (Auto) 1.4 L (2-4) % Baso % (Auto) 0.9 (0-2) % Neut # (Auto) 4100 (1121-9634) /uL Lymph # (Auto) 1600 (6942-8307) /uL [place] # (Auto) 900 (0-900) /uL Eos # (Auto) 100 (0-450) /uL Baso # (Auto) 100 (0-100) /uL PT 31.2 H (10.1-12.7) SECONDS INR 2.7 H (0.9-1.3) APTT 45 H (26.4-36.2) SECONDS D-Dimer 1046 H (<230) ng/mL Sodium 136 L (137-145) mmol/L Potassium 4.4 (3.4-5.1) mmol/L Chloride 103 (98-107) mmol/L Carbon Dioxide 22 (22-32) mmol/L BUN 19 (9-20) mg/dL Creatinine 0.92 (0.66-1.25) mg/dL Estimated GFR > 60.0 (>60) mL/min BUN/Creatinine Ratio 20.7 (6-22) Glucose 114 H (80-110) mg/dL Calcium 9.3 (8.4-10.2) mg/dL Total Bilirubin 0.5 (0.2-1.3) mg/dL AST 38 (17-59) IU/L ALT 26 (<50) IU/L Alkaline Phosphatase 109 (38-126) U/L Lactate Dehydrogenase 589 (313-618) U/L Troponin I (0.01-0.034) ng/mL C-Reactive Protein 0.6 (<1.0) mg/dL Total Protein 8.6 H (6.3-8.2) g/dL Albumin 4.9 (3.5-5.0) g/dL Globulin 3.7 (1.7-4.1) g/dL Albumin/Globulin Ratio 1.3 (1.0-2.8) Lipase (23-300) U/L Procalcitonin (<0.5) ng/mL 12/03/19 12/03/19 Range/Units 10:29 10:29 WBC (4.5-11.0) X10^3/uL RBC (4.5-5.9) X10^6/uL Hgb (13.5-17.5) g/dL Hct (41-53) % MCV (80-100) fL MCH (26-34) PG MCHC (30-36) % RDW (11.6-14.8) % Plt Count (150-400) X10^3/uL Neut % (Auto) (50-75) % Lymph % (Auto) (25-40) % [place] % (Auto) (3-14) % Eos % (Auto) (2-4) % Baso % (Auto) (0-2) % Neut # (Auto) (8135-4582) /uL Lymph # (Auto) (9198-6770) /uL [place] # (Auto) (0-900) /uL Eos # (Auto) (0-450) /uL Baso # (Auto) (0-100) /uL PT (10.1-12.7) SECONDS INR (0.9-1.3) APTT (26.4-36.2) SECONDS D-Dimer (<230) ng/mL Sodium (137-145) mmol/L Potassium (3.4-5.1) mmol/L Chloride (98-107) mmol/L Carbon Dioxide (22-32) mmol/L BUN (9-20) mg/dL Creatinine (0.66-1.25) mg/dL Estimated GFR (>60) mL/min BUN/Creatinine Ratio (6-22) Glucose (80-110) mg/dL Calcium (8.4-10.2) mg/dL Total Bilirubin (0.2-1.3) mg/dL AST (17-59) IU/L ALT (<50) IU/L Alkaline Phosphatase (38-126) U/L Lactate Dehydrogenase (313-618) U/L Troponin I < 0.012 (0.01-0.034) ng/mL C-Reactive Protein (<1.0) mg/dL Total Protein (6.3-8.2) g/dL Albumin (3.5-5.0) g/dL Globulin (1.7-4.1) g/dL Albumin/Globulin Ratio (1.0-2.8) Lipase 83 (23-300) U/L Procalcitonin < 0.05 (<0.5) ng/mL Imaging Data Chest x-ray: Radiologist's Impression: [address] [address] XRay Report Signed Patient: Kash Mcdaniels [facility]#: [id number] : 7Acct:[id number] Age/Sex: 74 / MDate of Service: 12/03/19 Loc: ED Accession Number: [id number] Procedure: XR chest 1V Ordering Provider: John Santiago D.O. PROCEDURE: XR CHEST 1V INDICATIONS: productive cough TECHNIQUE: One view of the chest was acquired. COMPARISON: Located Within [facility], , XR CHEST 1V, 09/29/2019, 20:25. FINDINGS: Surgical changes and devices: Cardiac pacemaker is unchanged. Lungs and pleura: Lungs are clear. No pleural effusions or pneumothorax. Mediastinum: Mediastinal contours appear normal. Heart size is normal. Bones and chest wall: No suspicious bony lesions. Overlying soft tissues a ppear unremarkable. IMPRESSION: No acute cardiopulmonary findings. Dictated by: Giulia Lew M.D. on 12/03/2019 at 11:06 Approved by: Giulia Lew M.D. on 12/03/2019 at 11:06 ECG Data Attestation: I personally reviewed and interpreted this ECG as follows: Prior ECG tracings: not available for review Interpretation: Atrial fibrillation Ventricular rate 87 Left axis deviation Left anterior fascicular block Nonspecific ST T wave changes MDM Narrative Medical decision making narrative: Patient is nontoxic appearing. He is febrile. Does have a productive cough. Chest x-ray shows no focal pneumonia. EKG is unremarkable. Patient has had respiratory issues for the past several weeks/months however his cough started on Monday. I do suspect that his symptoms are related to his COPD exacerbation. He has an inhaler at home we did provide him with a spacer. Will send home with antibiotics. We also test the patient for COVID I do have a relatively low suspicion for this however given the current situation with regard to this virus and the patient started having symptoms on Monday I feel that it is prudent to at least test. He was given instructions with regard to this. They have already been self isolating due to the current environment. We will hold on steroids as he has no wheezing. He already is being followed by Cardiology. Is going to contact his primary provider. Feel patient is safe to be discharged. He expressed understanding and agreement this plan. Discharge Plan Departure Patient Disposition: Home Clinical Impression: COPD exacerbation Discharge Date/Time: 12/03/19 12:40 Instructions: Chronic Obstructive Pulmonary Disease Activity Restrictions/Additional Instructions: Recommend that you contact your primary provider for follow-up in to discuss f urther workup. Take the antibiotics as directed. We did test you for COVID-19 virus today. These tests to take anywhere from 2-7 days to return. We will call you for both positive and negative results. Recommend that you continue to self quarantine herself. Avoid contact with others. Cover your cough and wash your hands frequently. Return to the emergency department for any new or worsening symptoms Prescriptions: New azithromycin 250 mg tablet See Rx Instructions .ROUTE .COMPLEX Qty: 6 RF: 0 No Action warfarin [Coumadin] 7.5 mg tablet See Rx Instructions .ROUTE .COMPLEX RF: 0 dofetilide [Tikosyn] 125 mcg capsule 250 mcg PO Q12H RF: 0 irbesartan [Avapro] 150 mg tablet 150 mg PO DAILY RF: 0 furosemide 20 mg tablet 20 mg PO DAILY RF: 0 sertraline 50 mg tablet 50 mg PO DAILY RF: 0 tamsulosin [Flomax] 0.4 mg capsule 0.4 mg PO DAILY RF: 0 triamcinolone acetonide [Nasacort] 55 mcg Aerosol,[place] 1 spray INTRANASAL DAILY PRN (Reason: Allergy Symptoms) RF: 0 albuterol sulfate [Ventolin HFA] 90 mcg/actuation Hfa Aerosol Inhaler 1 puff INHALATION QID RF: 0 Stiolto Respimat 2.5-2.5 mcg/actuation Mist 2 puff INHALATION DAILY RF: 0 clarithromycin 500 mg Tablet 500 mg PO BID Qty: 25 RF: 0 metronidazole 500 mg Tablet 500 mg PO TID Qty: 39 RF: 0 pantoprazole 20 mg Tablet,Delayed Release (Dr/Ec) 20 mg PO 0700,2100 Qty: 60 RF: 0 Referrals: Gerald Justice MD [Primary Care Provider] -
[2019-12-03 10:38] LABS: Add Manual Diff / Slide Review NO; Basophils Absolute Auto 100 /uL (0-100); Basophils Percent Auto 0.9 % (0-2); Eosinophils Absolute Auto 100 /uL (0-450); Eosinophils Percent Auto 1.4 % (2-4); Hematocrit 45.8 % (41-53); Hemoglobin 14.8 g/dL (13.5-17.5); Lymphocytes Absolute Auto 1600 /uL (1100-4500); Lymphocytes Percent Auto 23.4 % (25-40); Mean Corpuscular HGB Conc 32.3 % (30-36); Mean Corpuscular Hemoglobin 26.9 PG (26-34); Mean Corpuscular Volume 83.5 fL (80-100); Monocytes Absolute Auto 900 /uL (0-900); Monocytes Percent Auto 13.7 % (3-14); Neutrophils Absolute Auto 4100 /uL (1500-7000); Neutrophils Percent Auto 60.6 % (50-75); Platelet Count 258 X10^3/uL (150-400); Red Blood Cell Count 5.49 X10^6/uL (4.5-5.9); Red Cell Distribution Width 17.3 % (11.6-14.8); White Blood Cell Count 6.7 X10^3/uL (4.5-11.0)
[2019-12-03 10:48] LABS: INR 2.7 (0.9-1.3); Prothrombin Time 31.2 SECONDS (10.1-12.7)
[2019-12-03 10:51] LABS: D Dimer 1046 ng/mL (<230); PTT Partial Thromboplastin Tim 45 SECONDS (26.4-36.2)
[2019-12-03 10:55] LABS: Lipase 83 U/L (23-300)
[2019-12-03 10:57] LABS: Alanine Aminotransferase 26 IU/L (<50); Albumin 4.9 g/dL (3.5-5.0); Albumin Globulin Ratio 1.3 (1.0-2.8); Alkaline Phosphatase 109 U/L (38-126); Aspartate Aminotransferase 38 IU/L (17-59); BUN Creatinine Ratio 20.7 (6-22); Bilirubin Total 0.5 mg/dL (0.2-1.3); Blood Urea Nitrogen 19 mg/dL (9-20); C-Reactive Protein Quant 0.6 mg/dL (<1.0); Calcium 9.3 mg/dL (8.4-10.2); Carbon Dioxide 22 mmol/L (22-32); Chloride 103 mmol/L (98-107); Estimated Glomerular Filt Rate > 60.0 mL/min (>60); Globulin 3.7 g/dL (1.7-4.1); Glucose 114 mg/dL (80-110); HEMOLYSIS < 15 (0-50); Lactate Dehydrogenase 589 U/L (313-618); Potassium 4.4 mmol/L (3.4-5.1); Sodium 136 mmol/L (137-145); Total Protein 8.6 g/dL (6.3-8.2)
[2019-12-03 11:00] VITALS: BP 123/75; PULSE 87; RESP 13; O2SAT 94
[2019-12-03 11:06] LABS: Troponin I < 0.012 ng/mL (0.01-0.034)
[2019-12-03 11:09] LABS: Procalcitonin < 0.05 ng/mL (<0.5)
[2019-12-03 11:33] VITALS: BP 115/66; PULSE 82; RESP 11; O2SAT 95
[2019-12-03 12:29] VITALS: BP 115/66; PULSE 91; RESP 13; O2SAT 94
[2019-12-03 12:30] VITALS: BP 121/82; PULSE 89; RESP 16; O2SAT 96
[2019-12-03 12:39] VITALS: BP 118/79; PULSE 83; RESP 14; O2SAT 95
[2019-12-05 11:29] LABS: COVID19 Sendout Not Detected (Not Detected)
== END 2019-12-03 12:40 | disposition home or self-care (01) ==
LOC: ED 12:40
PROVIDERS: Emergency Provider Emergency Medicine; PCP Internal Medicine
DX: J44.1 Chronic obstructive pulmonary disease with (acute) exacerbation (principal); R06.00 Dyspnea, unspecified; I48.91 Unspecified atrial fibrillation; Z79.01 Long term (current) use of anticoagulants
CPT/HCPCS: 36415; 71045; 80053; 83615; 83690; 84145; 84484; 85025; 85379; 85610; 85730; 86140; 87635; 93005; 99284

== ENCOUNTER → 2020-04-25 11:08 | Outpatient (CLI) | payer MEDICARE, OTHER, SELFPAY ==
[2020-04-26 21:00] LABS: COVID19 Sendout Not Detected (Not Detect)
== END ==
PROVIDERS: PCP Internal Medicine; Visit Provider Physician Assistant
DX: Z11.59 Encounter for screening for other viral diseases (principal)
CPT/HCPCS: 87635

== ENCOUNTER 2020-04-27 08:14 | Day surgery (SDC) | payer MEDICARE, OTHER, SELFPAY ==
--- NOTE | 2020-04-27 08:22 | P.HP_ITS ---
History of Present Illness History of Present Illness Date Patient Seen: 04/27/20 Time Patient Seen: 08:22 Chief complaint: [id number] Narrative: This is a 74-year-old man who underwent a esophagoduodenoscopy September 2019 was found have a bleeding duodenal ulcer. He was treated for presumptive H pylori and presents today for repeat EGD. He has had no recent bright red blood per rectum, melena, hematemesis. Patient History Medical History Anxiety (Acute) Arrhythmia (Acute) Arthritis (Acute) BPH (benign prostatic hyperplasia) (Acute) Chronic anticoagulation (Acute) COPD (chronic obstructive pulmonary disease) (Acute) Diverticulitis (Acute) Easy bruisability (Acute) GERD (gastroesophageal reflux disease) (Acute) Gout (Acute) History of cardioversion (Acute) HTN (hypertension) (Acute) Hx of agent [place] exposure (Acute) Mitral regurgitation (Acute) Obesity (Acute) Obstructive sleep apnea (Acute) Pacemaker (Acute 06/06/18) Pain (Acute) Seasonal allergies (Acute) Sinus bradycardia (Acute) Surgical History H/O inguinal hernia repair (Acute ~1982) History of surgery (Acute ~2018) Hx of nasal septoplasty (Acute ~1988) Status cardiac pacemaker (Chronic) Family & Social History Social History: household members spouse Tobacco & Substance use: Tobacco type cigarettes Smoking Status Former smoker alcohol intake never alcohol intake frequency 0-2 drinks per day Substance Use Type does not use Meds Home Medications and Allergies Home Medications Medication Instructions Recorded Confirmed Type dofetilide 125 mcg capsule 250 mcg PO Q12H 08/07/19 04/27/20 History furosemide 20 mg tablet 20 mg PO DAILY 08/07/19 04/27/20 History irbesartan 150 mg tablet 150 mg PO DAILY 08/07/19 04/27/20 History sertraline 50 mg tablet 50 mg PO DAILY 08/07/19 04/27/20 History tamsulosin 0.4 mg capsule 0.4 mg PO DAILY 08/07/19 04/27/20 History warfarin 7.5 mg tablet See Rx Instructions .ROUTE .COMPLEX 08/07/19 04/27/20 History albuterol sulfate [Ventolin HFA] 1 puff INHALATION QID PRN 09/29/19 04/27/20 History triamcinolone acetonide [Nasacort] 1 spray INTRANASAL DAILY PRN 09/29/19 04/27/20 History metronidazole 1 applic TOPICAL 04/27/20 History prednisolone acetate 1 drp EYE-RIGHT QID 04/27/20 04/27/20 History sildenafil 100 mg PO DAILY PRN 04/27/20 04/27/20 History Allergies Allergy/AdvReac Type Severity Reaction Status Date / Time No Known Drug Allergies Allergy Verified 04/27/20 08:34 Review of Systems Review of Systems Narrative: A 10 point review of systems is negative except as noted in the HPI Exam Narrative Exam Narrative: General-no acute distress, well nourished HEENT-moist mucous membranes, no scleral icterus Neck-supple, no lymphadenopathy Chest- non labored respirations, clear to auscultation bilaterally Cardiac-regular rate no peripheral edema Abdomen-soft, nontender, non distended Extremities-warm, well perfused Neurological-alert and oriented, no focal deficits Assessment & Plan Assessment and plan (1) Duodenal ulcer: Status: Acute Assessment & Plan narrative: 74-year-old male with a history of a duodenal ulcer treated for H pylori 6 months ago now here for repeat follow-up EGD. Technical details were discussed. Risks, benefits, alternatives explained. Risks including but not limited to myocardial infarction, aspiration, bleeding, pain, missed lesion, incomplete examination, need for further radiographic studies, colonic perforation, and need for major abdominal surgery were discussed. All questions were answered to their satisfaction, and they are in agreement with this plan. COVID-19 COVID-19 status: Negative
[2020-04-27] MEDS: LACTATED RINGERS 1,000 ML 200 ML IV (08:40)
[2020-04-27 08:41] VITALS: BP 146/88; PULSE 63; RESP 16; TEMP 36.2; O2SAT 97; BMI 37.6
[2020-04-27] MEDS: LIDOCAINE 4% SOLN 50 ML 20 ML TOP (09:05)
[2020-04-27] MEDS: fentaNYL 250 MCG/5 ML INJ IV (09:07)
[2020-04-27] MEDS: MIDAZOLAM 5 MG/5 ML VIAL IV (09:07)
--- NOTE | 2020-04-27 09:14 | P.OP.ENDO_ITS ---
Operative Date/Time/Diagnoses Date of procedure: 04/27/20 Time of procedure: 09:14 Pre-op diagnosis: Duodenal ulcer Post-op diagnosis: same Procedure & Clinicians Study performed: Esophagoduodenoscopy Same procedure as scheduled: Yes Indications: 74-year-old male he had a bleeding duodenal ulcer 6 months ago here for follow-up EGD Surgeon: Jordy New Procedure Notes SCOAP/Timeout: Performed Procedure in detail: Patient placed in left lateral decubitus position. Time out was performed. Procedural sedation was administered with Versed and Fentanyl. A bite block was placed. the scope was inserted into the mouth and advanced through the esophagus and into the stomach. The pylorus was intubated and the duodenum was normal to the 2nd portion. The scope was retroflexed within the stomach and there was a small hiatal hernia. No ulcers, or gastritis. The scope was withdrawn into the esophagus the Z line was seen at 40 cm from the incisions. There was no munroe's esophagitis or masses or strictures. 4 Stoma ch was desufflated and scope removed. Patient tolerated procedure well. Sedation minutes: 6 Specimen(s): none sent Complications: none Impression: Resolved duodenal ulcer Post-procedure Disposition: same day surgery
[2020-04-27 09:17] VITALS: BP 132/73; PULSE 60; RESP 13; TEMP 36.9; O2SAT 93
[2020-04-27 09:22] VITALS: BP 121/73; PULSE 60; RESP 12; O2SAT 92
[2020-04-27 09:28] VITALS: BP 121/76; PULSE 60; RESP 20; O2SAT 95
[2020-04-27 09:32] VITALS: BP 122/76; PULSE 60; RESP 13; TEMP 36.8; O2SAT 93
[2020-04-27 10:03] VITALS: BP 129/82; PULSE 60; RESP 16; TEMP 36.1; O2SAT 95
== END 2020-04-27 10:07 | disposition home or self-care (01) ==
PROVIDERS: PCP Internal Medicine; Referring Provider Surgery; Visit Provider Surgery
PROC: 0DJ08ZZ Inspection of Upper Intestinal Tract, Via Natural or Artificial Opening Endoscopic (ICD-10-PCS; CPT 43235; principal; 2020-04-27 09:15)
DX: Z87.19 Personal history of other diseases of the digestive system (principal)
CPT/HCPCS: 43235; J2250; J3010

== ENCOUNTER 2020-07-18 10:28 | Emergency (ER) | payer MEDICARE, OTHER, SELFPAY ==
[2020-07-18] VITALS (18 sets, daily range): BP systolic 122–180; BP diastolic 60–92; PULSE 60–81; RESP 11–27; O2SAT 94–98
--- NOTE | 2020-07-18 10:33 | DI.RAD.S_ITS ---
PROCEDURE: XR CHEST 1V INDICATIONS: chest pain TECHNIQUE: One view of the chest was acquired. COMPARISON: [facility], CR, XR CHEST 1V, 12/03/2019, 10:34. FINDINGS: Surgical changes and devices: Left -sided cardiac pacer device is in place. Lungs and pleura: Minimal streaky bibasilar opacities favored to represent atelectasis. This is not significantly different compared to prior study. Lungs are otherwise clear. No pleural effusions or pneumothorax. Mediastinum: Mediastinal contours appear normal. Heart size is normal. Bones and chest wall: No suspicious bony lesions. Overlying soft tissues appear unremarkable. IMPRESSION: Minimal bibasilar opacities likely representing atelectasis. Otherwise, no acute cardiopulmonary abnormalities identified. Dictated by: Sj Tucker M.D. on 07/18/2020 at 10:30 Approved by: Sj Tucker M.D. on 07/18/2020 at 10:31
[2020-07-18 10:47] LABS: Add Manual Diff / Slide Review NO; Basophils Absolute Auto 100 /uL (0-100); Eosinophils Absolute Auto 200 /uL (0-450); Eosinophils Percent Auto 2.4 % (2-4); Hematocrit 47.6 % (41-53); Hemoglobin 16.1 g/dL (13.5-17.5); Lymphocytes Absolute Auto 1600 /uL (1100-4500); Lymphocytes Percent Auto 21.8 % (25-40); Mean Corpuscular HGB Conc 33.9 % (30-36); Mean Corpuscular Hemoglobin 29.7 PG (26-34); Mean Corpuscular Volume 87.6 fL (80-100); Monocytes Absolute Auto 600 /uL (0-900); Neutrophils Absolute Auto 4900 /uL (1500-7000); Neutrophils Percent Auto 66.8 % (50-75); Platelet Count 270 X10^3/uL (150-400); Red Blood Cell Count 5.44 X10^6/uL (4.5-5.9); Red Cell Distribution Width 14.7 % (11.6-14.8); White Blood Cell Count 7.3 X10^3/uL (4.5-11.0)
[2020-07-18 10:53] LABS: INR 1.7 (0.9-1.3); Prothrombin Time 19.3 SECONDS (10.1-12.7)
[2020-07-18 10:56] LABS: PTT Partial Thromboplastin Tim 38 SECONDS (26.4-36.2)
[2020-07-18 10:57] LABS: Alanine Aminotransferase 27 IU/L (<50); Albumin 4.7 g/dL (3.5-5.0); Albumin Globulin Ratio 1.4 (1.0-2.8); Alkaline Phosphatase 75 U/L (38-126); Aspartate Aminotransferase 38 IU/L (17-59); BUN Creatinine Ratio 28.6 (6-22); Bilirubin Total 0.8 mg/dL (0.2-1.3); Blood Urea Nitrogen 20 mg/dL (9-20); Carbon Dioxide 26 mmol/L (22-32); Chloride 106 mmol/L (98-107); Creatine Kinase 93 U/L (55-170); Estimated Glomerular Filt Rate > 60.0 mL/min (>60); Globulin 3.4 g/dL (1.7-4.1); Glucose 147 mg/dL (80-110); Lipase 89 U/L (23-300); Sodium 140 mmol/L (137-145); Total Protein 8.1 g/dL (6.3-8.2)
[2020-07-18 10:58] LABS: HEMOLYSIS 121 (0-50); Potassium 4.3 mmol/L (3.4-5.1)
[2020-07-18 11:04] LABS: COVID19 -Nasal RAPID Negative (Negative)
[2020-07-18 11:09] LABS: NT-proBNP (BNP-Adult 18+) 53 pg/mL (<125); Troponin I < 0.012 ng/mL (0.01-0.034)
--- NOTE | 2020-07-18 11:14 | ED_ITS ---
HPI - Chest Pain General Chief Complaint: Chest Pain Stated Complaint: suspects heart attack, SOB, chest pain Time Seen by Provider: 07/18/20 10:39 Source: patient and family Mode of arrival: Ambulatory Limitations: no limitations History of Present Illness HPI narrative: 75-year-old male here for evaluation what he states is a potential heart attack. He has never had cardiac issues in the past. He does state that for the past month he has had shortness of breath which initially started with exertion but is now more often when he is sitting down. Earlier today he had symptoms to include pain in both of his arms arms and some chest discomfort and worsening of her shortness of breath. No nausea or vomiting. States that he is relatively improved at the time of my evaluation. States that he has gained weight over the past month secondary to inactivity because of the coronavirus. Related Data Home Medications Medication Instructions Recorded Confirmed dofetilide 125 mcg capsule 250 mcg PO Q12H 08/07/19 04/27/20 furosemide 20 mg tablet 20 mg PO DAILY 08/07/19 04/27/20 irbesartan 150 mg tablet 150 mg PO DAILY 08/07/19 04/27/20 sertraline 50 mg tablet 50 mg PO DAILY 08/07/19 04/27/20 tamsulosin 0.4 mg capsule 0.4 mg PO DAILY 08/07/19 04/27/20 warfarin 7.5 mg tablet See Rx Instructions .ROUTE .COMPLEX 08/07/19 04/27/20 albuterol sulfate [Ventolin HFA] 1 puff INHALATION QID PRN 09/29/19 04/27/20 triamcinolone acetonide [Nasacort] 1 spray INTRANASAL DAILY PRN 09/29/19 04/27/20 metronidazole 1 applic TOPICAL 04/27/20 prednisolone acetate 1 drp EYE-RIGHT QID 04/27/20 04/27/20 sildenafil 100 mg PO DAILY PRN 04/27/20 04/27/20 Allergies Allergy/AdvReac Type Severity Reaction Status Date / Time No Known Drug Allergies Allergy Verified 07/18/20 10:38 Review of Systems Constitutional Constitutional: Denies fever(s) and Denies headache(s) ENT Ears, Nose, Mouth, and Throat: Denies headache(s) Cardiovascular Cardiovascular: Reports chest pain, Reports dyspnea and Reports dyspnea on exertion Respiratory Respiratory: Reports dyspnea and Reports dyspnea on exertion Gastrointestinal Gastrointestinal: Denies abdominal pain, Denies nausea and Denies vomiting Genitourinary Genitourinary: Denies dysuria Genitourinary: Denies dysuria Musculoskeletal Musculoskeletal: Denies back pain, Denies deformity and Denies myalgias Integumentary/Breasts Skin/Breast: Denies lesions and Denies rash Neurologic Neurologic: Denies behavioral changes and Denies headache(s) Psychiatric Psychiatric: Denies behavioral changes Hematologic/Lymphatic Hematologic/Lymphatic: Denies easy bleeding and Denies easy bruising Allergic/Immunologic Allergic/Immunologic: Denies urticaria Patient History Medical History Anxiety (Acute) Arrhythmia (Acute) Arthritis (Acute) BPH (benign prostatic hyperplasia) (Acute) Chronic anticoagulation (Acute) COPD (chronic obstructive pulmonary disease) (Acute) Diverticulitis (Acute) Easy bruisability (Acute) GERD (gastroesophageal reflux disease) (Acute) Gout (Acute) History of cardioversion (Acute) HTN (hypertension) (Acute) Hx of agent [place] exposure (Acute) Mitral regurgitation (Acute) Obesity (Acute) Obstructive sleep apnea (Acute) Pacemaker (Acute 06/06/18) Pain (Acute) Seasonal allergies (Acute) Sinus bradycardia (Acute) Surgical History H/O inguinal hernia repair (Acute ~1982) History of surgery (Acute ~2018) Hx of nasal septoplasty (Acute ~1988) Status cardiac pacemaker (Chronic) Social History household members: spouse Smoking Status: Former smoker alcohol intake: never Smoking Status: Former smoker alcohol intake frequency: 0-2 drinks per day Substance Use Type: does not use Exam Initial Vital Signs Initial Vital Signs: Vital Signs Pulse Rate 81 07/18/20 10:30 Respiratory Rate 24 07/18/20 10:30 Blood Pressure 180/69 H 07/18/20 10:30 Pulse Oximetry 94 07/18/20 10:30 Const General: cooperative and comfortable Limitations: mental status not altered HENMT Head: normal to inspection and normocephalic Chest Chest: No crepitus and No tenderness Resp Effort & Inspection: normal respiratory effort Auscultation: clear to auscultation bilaterally Cardio Rate: regular rate Rhythm: regular rhythm GI Inspection: non-distended Palpation: soft Skin Lesions: no lesions Rashes: no rashes Neuro General: patient alert and patient awake Cognition: normal cognition Speech: speech normal Extrem General: capillary refill normal Psych Appearance: grossly normal and well kempt Course Orders Ordered: ED Orders 07/18/20 10:33 XR chest 1V Stat EKG-12 Lead Stat 07/18/20 10:35 COVID19 -ED/INPAT/OR/L&D Stat Complete Blood Count AUTO DIFF Stat Comprehensive Metabolic Panel Stat D Dimer Stat Lipase Stat NT-proBNP (BNP-Adult 18+) Stat Partial Thromboplastin Time Stat Prothrombin Time INR Stat Troponin & CK Cardiac Panel Stat 07/18/20 12:24 CT angio chest PE protocol Stat 07/18/20 13:48 Troponin I Stat Discontinued Medications Sodium Chloride (Normal Saline 0.9%) 1,000 mls @ 500 mls/hr IV BOLUS ONE Stop: 07/18/20 14:23 Last Admin: 07/18/20 12:53 Dose: 500 mls/hr Documented by: RIKY Vital Signs Vital signs: Vital Signs - 8 hr 07/18/20 10:30 07/18/20 10:45 07/18/20 11:00 Pulse Rate 81 62 60 Respiratory Rate 24 11 L 13 Blood Pressure 180/69 H 146/67 H 138/64 Pulse Oximetry 94 96 96 07/18/20 11:15 07/18/20 11:30 07/18/20 11:48 Pulse Rate 67 61 60 Respiratory Rate 22 17 20 Blood Pressure 122/60 159/70 H 137/84 Pulse Oximetry 94 96 96 07/18/20 12:00 07/18/20 12:15 07/18/20 12:30 Pulse Rate 60 60 60 Respiratory Rate 16 13 17 Blood Pressure 144/87 H 155/91 H 150/92 H Pulse Oximetry 96 96 96 07/18/20 12:55 07/18/20 13:00 07/18/20 13:15 Pulse Rate 61 60 60 Respiratory Rate 27 H 13 14 Blood Pressure Pulse Oximetry 98 97 96 07/18/20 13:30 07/18/20 13:45 07/18/20 13:48 Pulse Rate 60 60 60 Respiratory Rate 17 22 21 Blood Pressure 143/83 H Pulse Oximetry 95 96 96 07/18/20 14:00 Pulse Rate 60 Respiratory Rate 15 Blood Pressure 139/76 Pulse Oximetry 95 MDM - Chest Pain Lab Data Attestation: I reviewed the patient's lab results. Result diagrams: 07/18/20 10:35 07/18/20 10:35 Labs: Lab Results 07/18/20 07/18/20 07/18/20 Range/Units 10:35 10:35 10:35 WBC 7.3 (4.5-11.0) X10^3/uL RBC 5.44 (4.5-5.9) X10^6/uL Hgb 16.1 (13.5-17.5) g/dL Hct 47.6 (41-53) % MCV 87.6 (80-100) fL MCH 29.7 (26-34) PG MCHC 33.9 (30-36) % RDW 14.7 (11.6-14.8) % Plt Count 270 (150-400) X10^3/uL Neut % (Auto) 66.8 (50-75) % Lymph % (Auto) 21.8 L (25-40) % [place] % (Auto) 8.0 (3-14) % Eos % (Auto) 2.4 (2-4) % Baso % (Auto) 1.0 (0-2) % Neut # (Auto) 4900 (0487-3937) /uL Lymph # (Auto) 1600 (7261-3148) /uL [place] # (Auto) 600 (0-900) /uL Eos # (Auto) 200 (0-450) /uL Baso # (Auto) 100 (0-100) /uL PT 19.3 H (10.1-12.7) SECONDS INR 1.7 H (0.9-1.3) APTT 38 H D (26.4-36.2) SECONDS D-Dimer (<230) ng/mL Sodium 140 (137-145) mmol/L Potassium 4.3 (3.4-5.1) mmol/L Chloride 106 (98-107) mmol/L Carbon Dioxide 26 (22-32) mmol/L BUN 20 (9-20) mg/dL Creatinine 0.70 (0.66-1.25) mg/dL Estimated GFR > 60.0 (>60) mL/min BUN/Creatinine Ratio 28.6 H (6-22) Glucose 147 H (80-110) mg/dL Calcium 9.0 (8.4-10.2) mg/dL Total Bilirubin 0.8 (0.2-1.3) mg/dL AST 38 (17-59) IU/L ALT 27 (<50) IU/L Alkaline Phosphatase 75 (38-126) U/L Total Creatine Kinase 93 (55-170) U/L CK-MB (CK-2) TNP CK-MB (CK-2) Rel Index TNP Troponin I < 0.012 (0.01-0.034) ng/mL NT-Pro-B Natriuret Pep 53 (<125) pg/mL Total Protein 8.1 (6.3-8.2) g/dL Albumin 4.7 (3.5-5.0) g/dL Globulin 3.4 (1.7-4.1) g/dL Albumin/Globulin Ratio 1.4 (1.0-2.8) Lipase 89 (23-300) U/L COVID-19 PCR (Negative) 07/18/20 07/18/20 07/18/20 Range/Units 10:35 10:35 13:48 WBC (4.5-11.0) X10^3/uL RBC (4.5-5.9) X10^6/uL Hgb (13.5-17.5) g/dL Hct (41-53) % MCV (80-100) fL MCH (26-34) PG MCHC (30-36) % RDW (11.6-14.8) % Plt Count (150-400) X10^3/uL Neut % (Auto) (50-75) % Lymph % (Auto) (25-40) % [place] % (Auto) (3-14) % Eos % (Auto) (2-4) % Baso % (Auto) (0-2) % Neut # (Auto) (9303-5008) /uL Lymph # (Auto) (4935-8142) /uL [place] # (Auto) (0-900) /uL Eos # (Auto) (0-450) /uL Baso # (Auto) (0-100) /uL PT (10.1-12.7) SECONDS INR (0.9-1.3) APTT (26.4-36.2) SECONDS D-Dimer 1157 H (<230) ng/mL Sodium (137-145) mmol/L Potassium (3.4-5.1) mmol/L Chloride (98-107) mmol/L Carbon Dioxide (22-32) mmol/L BUN (9-20) mg/dL Creatinine (0.66-1.25) mg/dL Estimated GFR (>60) mL/min BUN/Creatinine Ratio (6-22) Glucose (80-110) mg/dL Calcium (8.4-10.2) mg/dL Total Bilirubin (0.2-1.3) mg/dL AST (17-59) IU/L ALT (<50) IU/L Alkaline Phosphatase (38-126) U/L Total Creatine Kinase (55-170) U/L CK-MB (CK-2) CK-MB (CK-2) Rel Index Troponin I < 0.012 (0.01-0.034) ng/mL NT-Pro-B Natriuret Pep (<125) pg/mL Total Protein (6.3-8.2) g/dL Albumin (3.5-5.0) g/dL Globulin (1.7-4.1) g/dL Albumin/Globulin Ratio (1.0-2.8) Lipase (23-300) U/L COVID-19 PCR Negative (Negative) Imaging Data Chest x-ray: Radiologist's Impression: [address] [address] XRay Report Signed Patient: Kash Mcdaniels [facility]#: [id number] : [id number]:[id number] Age/Sex: 75 / MDate of Service: 07/18/20 Loc: ED Accession Number: [id number] Procedure: XR chest 1V Ordering Provider: John Santiago D.O. PROCEDURE: XR CHEST 1V INDICATIONS: chest pain TECHNIQUE: One view of the chest was acquired. COMPARISON: Merged With [facility], [facility], XR CHEST 1V, 12/03/2019, 10:34. FINDINGS: Surgical changes and devices: Left -sided cardiac pacer device is in place. Lungs and pleura: Minimal streaky bibasilar opacities favored to represent atelectasis. This is not significantly different compared to prior study. Lungs are otherwise clear. No pleural effusions or pneumothorax. Mediastinum: Mediastinal contours appear normal. Heart size is normal. Bones and chest wall: No suspicious bony lesions. Overlying soft tissues appear unremarkable. IMPRESSION: Minimal bibasilar opacities likely representing atelectasis. Otherwise, no acute cardiopulmonary abnormalities identified. Dictated by: Sj Tucker M.D. on 07/18/2020 at 10:30 Approved by: Sj Tucker M.D. on 07/18/2020 at 10:31 CT scan - chest: Radiologist's Impression: [place] [address] CT Scan Report Signed Patient: Kash Mcdaniels [facility]#: [id number] : 7Acct:[id number] Age/Sex: 75 / MDate of Service: 07/18/20 Loc: ED Accession Number: [id number] Procedure: CT angio chest PE protocol Ordering Provider: John Santiago D.O. PROCEDURE: CT ANGIO CHEST PE PROTOCOL INDICATIONS: Chest pain, shortness of breath, tachycardia TECHNIQUE: After the administration of intravenous contrast, 2 mm thick sections acquired from the pulmonary apices to the posterior costophrenic angles. 3-dimensional maximum intensity projection (MIP) coronal and sagittal reformats were then acquired through the thorax. For radiation dose reduction, the following was used: automated exposure control, adjustment of mA and/or kV according to patient size. COMPARISON: Merged With [facility], CT, CT ANGIO CHEST PE PROTOCOL, 09/30/2019, 0:01. FINDINGS: Image quality: Excellent. Pulmonary arteries: Pulmonary arteries are normal in size, and demonstrate no intraluminal filling defects to suggest central pulmonary embolism. Lungs and pleura: Mild bibasilar ground-glass opacities likely representing atelectasis and/or scarring. This is not significantly changed. Mild perihilar airway thickening. Airways are otherwise clear. No focal consolidation. No septal thickening or nodularity. No pleural effusions or pneumothorax. Central and peripheral airways are patent. Mediastinum: Heart size is mildly enlarged, without pericardial effusion. Scattered atherosclerotic calcifications of the coronary arteries are noted.No mediastinal or hilar adenopathy. Thoracic aorta is normal in caliber and enhancement. Esophagus is normal in caliber, without hiatal hernia. Bones and chest wall: No suspicious bony lesions. Ribs and thoracic spine appear intact throughout. Thyroid gland is unremarkable. No axillary or supraclavicular adenopathy. No acute compression fractures of the visualized spine. Abdomen: Visualized upper abdominal solid organs appear normal in the early arterial phase of enhancement. IMPRESSION: 1. No evidence for acute pulmonary emboli or acute right-sided heart strain. 2. Mild bibasilar opacities compatible with atelectasis and/or scarring. No focal airspace disease. 3. Persistent, nonspecific airway thickening compatible with bronchitis and/or reactive airway disease. 4. Atherosclerotic vascular disease. Dictated by: Sj Tucker M.D. on 07/18/2020 at 12:13 Approved by: Sj Tucker M.D. on 07/18/2020 at 12:23 ECG Data Attestation: I personally reviewed and interpreted this ECG as follows: Prior ECG tracings: not available for review Interpretation: Sinus rhythm Ventricular rate is 77 First degree AV block with a p.r. interval to 1 0 milliseconds Left axis deviation Normal QTC No ST T wave changes MDM Narrative Medical decision making narrative: Chest x-ray is unremarkable, CT of the chest negative for PE. He is subtherapeutic on his Coumadin. We did discuss this with him. He is going to contact his primary provider for follow-up. Troponins negative x2. Nonspecific EKG. Low risk heart score. He was given return precautions and follow-up instructions. He expressed understanding and agreement plan. Discharge Plan Departure Patient Disposition: Home Clinical Impression: Atypical chest pain Instructions: DI for Atypical Chest Pain Activity Restrictions/Additional Instructions: Continue all of your medications as directed. Do recommend you contact your primary provider to discuss further evaluation of your chest discomfort to include the indications for a stress test. Also recommend you talk to your primary doctor about any changes to your Coumadin. Return to the emergency department for any new or worsening symptoms Prescriptions: No Action warfarin [Coumadin] 7.5 mg tablet See Rx Instructions .ROUTE .COMPLEX RF: 0 dofetilide [Tikosyn] 125 mcg capsule 250 mcg PO Q12H RF: 0 irbesartan [Avapro] 150 mg tablet 150 mg PO DAILY RF: 0 furosemide 20 mg tablet 20 mg PO DAILY RF: 0 sertraline 50 mg tablet 50 mg PO DAILY RF: 0 tamsulosin [Flomax] 0.4 mg capsule 0.4 mg PO DAILY RF: 0 triamcinolone acetonide [Nasacort] 55 mcg Aerosol,[place] 1 spray INTRANASAL DAILY PRN (Reason: Allergy Symptoms) RF: 0 albuterol sulfate [Ventolin HFA] 90 mcg/actuation Hfa Aerosol Inhaler 1 puff INHALATION QID PRN (Reason: Shortness Of Breath) RF: 0 sildenafil 100 mg tablet 100 mg PO DAILY PRN (Reason: Erectile Dysfunction) RF: 0 prednisolone acetate 1 % drops,suspension 1 drp EYE-RIGHT QID RF: 0 metronidazole 0.75 % cream 1 applic TOPICAL RF: 0 Referrals: Gerald Justice MD [Primary Care Provider] -
[2020-07-18 12:02] LABS: D Dimer 1157 ng/mL (<230)
--- NOTE | 2020-07-18 12:24 | DI.CT.S_ITS ---
PROCEDURE: CT ANGIO CHEST PE PROTOCOL INDICATIONS: Chest pain, shortness of breath, tachycardia TECHNIQUE: After the administration of intravenous contrast, 2 mm thick sections acquired from the pulmonary apices to the posterior costophrenic angles. 3-dimensional maximum intensity projection (MIP) coronal and sagittal reformats were then acquired through the thorax. For radiation dose reduction, the following was used: automated exposure control, adjustment of mA and/or kV according to patient size. COMPARISON: [facility], CT, CT ANGIO CHEST PE PROTOCOL, 09/30/2019, 0:01. FINDINGS: Image quality: Excellent. Pulmonary arteries: Pulmonary arteries are normal in size, and demonstrate no intraluminal filling defects to suggest central pulmonary embolism. Lungs and pleura: Mild bibasilar ground-glass opacities likely representing atelectasis and/or scarring. This is not significantly changed. Mild perihilar airway thickening. Airways are otherwise clear. No focal consolidation. No septal thickening or nodularity. No pleural effusions or pneumothorax. Central and peripheral airways are patent. Mediastinum: Heart size is mildly enlarged, without pericardial effusion. Scattered atherosclerotic calcifications of the coronary arteries are noted.No mediastinal or hilar adenopathy. Thoracic aorta is normal in caliber and enhancement. Esophagus is normal in caliber, without hiatal hernia. Bones and chest wall: No suspicious bony lesions. Ribs and thoracic spine appear intact throughout. Thyroid gland is unremarkable. No axillary or supraclavicular adenopathy. No acute compression fractures of the visualized spine. Abdomen: Visualized upper abdominal solid organs appear normal in the early arterial phase of enhancement. IMPRESSION: 1. No evidence for acute pulmonary emboli or acute right-sided heart strain. 2. Mild bibasilar opacities compatible with atelectasis and/or scarring. No focal airspace disease. 3. Persistent, nonspecific airway thickening compatible with bronchitis and/or reactive airway disease. 4. Atherosclerotic vascular disease. Dictated by: Sj Tucker M.D. on 07/18/2020 at 12:13 Approved by: Sj Tucker M.D. on 07/18/2020 at 12:23
[2020-07-18] MEDS: SODIUM CHLORIDE 0.9% 1,000 ML 500 ML IV (12:53)
[2020-07-18 14:18] LABS: Troponin I < 0.012 ng/mL (0.01-0.034)
== END 2020-07-18 14:48 | disposition home or self-care (01) ==
PROVIDERS: Emergency Provider Emergency Medicine; PCP Internal Medicine
DX: R07.89 Other chest pain (principal); R06.02 Shortness of breath; R00.0 Tachycardia, unspecified
CPT/HCPCS: 36415; 71045; 71275; 80053; 82550; 83690; 83880; 84484; 85025; 85379; 85610; 85730; 87635; 93005; 96360; 96361; 99284; 99285; Q9967

== ENCOUNTER 2021-01-19 17:01 | Emergency (ER) | payer MEDICARE, OTHER, SELFPAY ==
[2021-01-19] VITALS (62 sets, daily range): BP systolic 109–206; BP diastolic 56–101; PULSE 59–82; RESP 11–55; TEMP 36.7; O2SAT 91–100
--- NOTE | 2021-01-19 17:12 | DI.RAD.S_ITS ---
PROCEDURE: XR CHEST 1V INDICATIONS: chest pain TECHNIQUE: One view of the chest was acquired. COMPARISON: [facility], , XR CHEST 1V, 07/18/2020, 11:09. FINDINGS: Surgical changes and devices: Left chest wall dual lead pacemaker and leads appear similar in position. Lungs and pleura: Lungs are clear. No pleural effusions or pneumothorax. Mediastinum: Mediastinal contours appear normal. Heart size is normal. Bones and chest wall: No suspicious bony lesions. Overlying soft tissues appear unremarkable. IMPRESSION: 1. No acute cardiopulmonary disease. Dictated by: Elmer Alvarez M.D. on 01/19/2021 at 17:31 Approved by: Elemr Alvarez M.D. on 01/19/2021 at 17:34
[2021-01-19 17:21] LABS: Add Manual Diff / Slide Review NO; Basophils Absolute Auto 100 /uL (0-100); Basophils Percent Auto 1.1 % (0-2); Eosinophils Absolute Auto 300 /uL (0-450); Eosinophils Percent Auto 4.1 % (2-4); Hematocrit 39.9 % (41-53); Hemoglobin 13.5 g/dL (13.5-17.5); Lymphocytes Absolute Auto 1600 /uL (1100-4500); Lymphocytes Percent Auto 21.2 % (25-40); Mean Corpuscular HGB Conc 33.8 % (30-36); Mean Corpuscular Hemoglobin 30.6 PG (26-34); Mean Corpuscular Volume 90.3 fL (80-100); Monocytes Absolute Auto 1000 /uL (0-900); Monocytes Percent Auto 12.6 % (3-14); Neutrophils Absolute Auto 4600 /uL (1500-7000); Platelet Count 207 X10^3/uL (150-400); Red Blood Cell Count 4.42 X10^6/uL (4.5-5.9); Red Cell Distribution Width 14.1 % (11.6-14.8); White Blood Cell Count 7.6 X10^3/uL (4.5-11.0)
[2021-01-19] MEDS: ASPIRIN 81 MG CHEW TAB 324 MG PO (17:28)
[2021-01-19 17:34] LABS: INR 1.8 (0.9-1.3); Prothrombin Time 20.1 SECONDS (10.1-12.7)
[2021-01-19 17:49] LABS: Alanine Aminotransferase 28 IU/L (<50); Albumin 4.3 g/dL (3.5-5.0); Albumin Globulin Ratio 1.4 (1.0-2.8); Alkaline Phosphatase 71 U/L (38-126); Aspartate Aminotransferase 44 IU/L (17-59); BUN Creatinine Ratio 18.7 (6-22); Bilirubin Total 0.8 mg/dL (0.2-1.3); Blood Urea Nitrogen 17 mg/dL (9-20); Calcium 9.4 mg/dL (8.4-10.2); Carbon Dioxide 24 mmol/L (22-32); Chloride 103 mmol/L (98-107); Creatine Kinase 268 U/L (55-170); Estimated Glomerular Filt Rate > 60.0 mL/min (>60); Glucose 89 mg/dL (80-110); Lipase 57 U/L (23-300); Potassium 4.4 mmol/L (3.4-5.1); Sodium 136 mmol/L (137-145); Total Protein 7.3 g/dL (6.3-8.2)
--- NOTE | 2021-01-19 17:51 | ED.CHESTPAIN ---
HPI - Chest Pain <Dennis Krause DO - Last Filed: 01/20/21 04:41> General Chief Complaint: Chest Pain Stated Complaint: chest pain Time Seen by Provider: 01/19/21 17:06 Source: patient Mode of arrival: Ambulatory Limitations: no limitations History of Present Illness HPI narrative: 75M former smoker with extensive cardiac history including a recent heart catheterization and [place] earlier this year presents with a chief complaint of retrosternal chest pressure, heaviness and squeezing that started a few hours ago. He was out working in the [place] when it started he states that it was intense and associated with some shortness of breath. He denies associated symptoms such as dizziness, weakness or lightheadedness. He states at its most intense it was a 4/10 and after 3 nitro at home in improved only slightly at which point he decided to come in here. He denies any obvious exertional component to his discomfort. He denies recent travel, history of clot or cancer. He does state that this feels somewhat similar to prior cardiac events Related Data Home Medications Medication Instructions Recorded Confirmed dofetilide 125 mcg capsule 250 mcg PO Q12H 08/07/19 04/27/20 furosemide 20 mg tablet 20 mg PO DAILY 08/07/19 04/27/20 irbesartan 150 mg tablet 150 mg PO DAILY 08/07/19 04/27/20 sertraline 50 mg tablet 50 mg PO DAILY 08/07/19 04/27/20 tamsulosin 0.4 mg capsule 0.4 mg PO DAILY 08/07/19 04/27/20 warfarin 7.5 mg tablet See Rx Instructions .ROUTE .COMPLEX 08/07/19 04/27/20 albuterol sulfate [Ventolin HFA] 1 puff INHALATION QID PRN 09/29/19 04/27/20 triamcinolone acetonide [Nasacort] 1 spray INTRANASAL DAILY PRN 09/29/19 04/27/20 metronidazole 1 applic TOPICAL 04/27/20 prednisolone acetate 1 drp EYE-RIGHT QID 04/27/20 04/27/20 sildenafil 100 mg PO DAILY PRN 04/27/20 04/27/20 Allergies Allergy/AdvReac Type Severity Reaction Status Date / Time No Known Drug Allergies Allergy Verified 07/18/20 10:38 Review of Systems <DO Otf Ayala Last Filed: 01/20/21 04:41> Constitutional Constitutional: Denies chills, Denies fatigue, Denies fever(s), Denies frequent falls, Denies lethargy and Denies weakness Eyes Eyes: Denies change in vision, Denies eye discharge, Denies irritation and Denies loss of vision ENT Ears, Nose, Mouth, and Throat: Denies change in voice, Denies dizziness, Denies neck pain, Denies sore throat and Denies throat swelling Cardiovascular Cardiovascular: Reports chest pain, Denies irregular heart rhythm, Denies lightheadedness, Denies palpitations, Reports dyspnea, Denies dyspnea on exertion and Denies orthopnea Respiratory Respiratory: Denies cough, Reports dyspnea, Denies dyspnea on exertion and Denies wheezing Gastrointestinal Gastrointestinal: Denies abdominal pain, Denies change in bowel habits, Denies diarrhea, Denies nausea and Denies vomiting Musculoskeletal Musculoskeletal: Denies neck pain and Denies numbness Integumentary/Breasts Skin/Breast: Denies pruritus, Denies erythema, Denies rash and Denies wounds Neurologic Neurologic: Denies behavioral changes, Denies confusion, Denies dizziness, Denies frequent falls, Denies loss of vision, Denies numbness and Denies weakness Psychiatric Psychiatric: Denies anxiety, Denies behavioral changes, Denies confusion, Denies depression, Denies homicidal ideation and Denies suicidal ideation Endocrine Endocrine: Denies fatigue, Denies flushing and Denies palpitations Hematologic/Lymphatic Hematologic/Lymphatic: Denies easy bruising Allergic/Immunologic Allergic/Immunologic: Denies urticaria, Denies throat swelling and Denies wheezing Patient History <Dennis Krasue DO - Last Filed: 01/20/21 04:41> Medical History (Updated 01/19/21 @ 18:40 by Dennis Krause DO) Anxiety Arrhythmia Arthritis BPH (benign prostatic hyperplasia) Chronic anticoagulation COPD (chronic obstructive pulmonary disease) Diverticulitis Easy bruisability GERD (gastroesophageal reflux disease) Gout History of cardioversion HTN (hypertension) Hx of agent [place] exposure Mitral regurgitation Obesity Obstructive sleep apnea Pacemaker (06/06/18) Pain Seasonal allergies Sinus bradycardia Surgical History H/O inguinal hernia repair (~1982) History of surgery (~2018) Hx of nasal septoplasty (~1988) Status cardiac pacemaker Social History household members: spouse Smoking Status: Former smoker alcohol intake: never Smoking Status: Former smoker alcohol intake frequency: 0-2 drinks per day Substance Use Type: does not use Exam <Dennis Krause DO - Last Filed: 01/20/21 04:41> Narrative Exam Narrative: GENERAL: [75] year old patient appears stated age. Well-nourished, well-developed patient, in mild distress. HEAD: Atraumatic. Normocephalic. EYES: Pupils equal round and reactive. Extraocular motions intact. No scleral icterus. No injection or drainage. ENT: Nose without bleeding, purulent drainage. Throat without erythema, tonsillar hypertrophy or exudate. Airway patent. NECK: Trachea midline. Non tender CARDIOVASCULAR: Regular rate and rhythm without murmurs, gallops, or rubs. RESPIRATORY: Clear to auscultation. Breath sounds equal bilaterally. No wheezes, rales, or rhonchi. GASTROINTESTINAL: Abdomen soft, non-tender, nondistended. EXTREMITIES: No edema or joint tenderness. BACK: Nontender without deformity or crepitance. No flank tenderness. NEURO: AOx3. SKIN: No rash or erythema of visible areas Initial Vital Signs Initial Vital Signs: Vital Signs Temperature 98.0 F 01/19/21 17:08 Pulse Rate 61 01/19/21 17:08 Respiratory Rate 18 01/19/21 17:08 Blood Pressure 151/87 H 01/19/21 17:08 Pulse Oximetry 100 01/19/21 17:08 <Brisa Ricketts MD - Last Filed: 01/21/21 01:26> Initial Vital Signs Initial Vital Signs: Vital Signs Temperature 98.0 F 01/19/21 17:08 Pulse Rate 61 01/19/21 17:08 Respiratory Rate 18 01/19/21 17:08 Blood Pressure 151/87 H 01/19/21 17:08 Pulse Oximetry 100 01/19/21 17:08 Course <Dennis Krause DO - Last Filed: 01/20/21 04:41> Course Course Narrative: Patient pain improved after our 1st 3 nitro, nearly down to 0, however the minimal exertion required to stand and urinate took his pain back to a 3 at which point nitro paste ordered, repeat EKG ordered Patient signed out to Dr. Ricketts pending his second troponin. There are currently no beds anywhere up and down the [place] corridor so it seems likely that he would be in the ED overnight for placement tomorrow unless a critical change should occur. Patient and family are aware of and in agreement with the plan Orders Ordered: Discontinued Medications Aspirin (Aspirin 81 Mg Chew Tab) 324 mg PO NOW ONE Stop: 01/19/21 17:13 Last Admin: 01/19/21 17:28 Dose: 324 mg Documented by: SANDEEP Heparin Sodium (Porcine) (Heparin 5,000 Unit/Ml Vial) 5,000 unit IV NOW ONE Stop: 01/19/21 19:39 Last Admin: 01/19/21 19:56 Dose: 5,000 unit Documented by: NIKO Sodium Chloride (Normal Saline 0.9%) 1,000 mls @ 150 mls/hr IV CONT JIMMY Last Infusion: 01/19/21 20:48 Dose: 0 mls/hr Documented by: Admin: 01/19/21 18:24 Dose: 150 mls/hr Documented by: RIKY Heparin Sodium/Dextrose (Heparin Drip) 25,000 unit in 500 mls @ 20 mls/hr IV CONT JIMMY; Protocol Last Admin: 01/19/21 19:56 Dose: 1,000 units/hr, 20 mls/hr Documented by: NIKO Amiodarone HCl/Dextrose (Nexterone) 150 mg in 100 mls @ 600 mls/hr IV NOW ONE; Protocol Stop: 01/19/21 22:09 Last Infusion: 01/19/21 23:20 Dose: 0 mls/hr Documented by: Admin: 01/19/21 22:21 Dose: 600 mls/hr Documented by: ELIZABETH Amiodarone HCl/Dextrose (Nexterone) 360 mg in 200 mls @ 33.333 mls/hr IV NOW ONE; Protocol Stop: 01/20/21 03:59 Last Admin: 01/19/21 22:33 Dose: 33.33 mls/hr, 33.333 mls/hr Documented by: NIKO Nitroglycerin (Nitroglycerin 0.4 Mg Sl Tab) 0.4 mg SL [id number] PRN PRN Reason: Chest Pain Last Admin: 01/19/21 18:21 Dose: 0.4 mg Documented by: Admin: 01/19/21 18:15 Dose: 0.4 mg Documented by: Admin: 01/19/21 18:10 Dose: 0.4 mg Documented by: RIKY Nitroglycerin (Nitroglycerin Oint 1 Inch/Gm Oint...G.) 1 inch TOP NOW ONE Stop: 01/19/21 18:39 Last Admin: 01/19/21 18:51 Dose: 1 inch Documented by: RIKY Vital Signs Vital signs: Vital Signs - 8 hr 01/19/21 21:00 01/19/21 21:30 01/19/21 21:32 Pulse Rate 65 68 68 Respiratory Rate 13 20 21 Blood Pressure 113/56 L 121/68 Pulse Oximetry 94 96 96 01/19/21 22:00 01/19/21 22:19 01/19/21 22:20 Pulse Rate 64 60 60 Respiratory Rate 12 13 13 Blood Pressure 125/70 124/72 123/70 Pulse Oximetry 94 94 95 01/19/21 22:25 01/19/21 22:30 01/19/21 22:35 Pulse Rate 60 60 60 Respiratory Rate 14 17 13 Blood Pressure 125/71 124/70 121/71 Pulse Oximetry 94 94 94 01/19/21 22:40 01/19/21 22:46 01/19/21 22:50 Pulse Rate 63 60 60 Respiratory Rate 17 18 14 Blood Pressure 142/64 H 123/63 145/76 H Pulse Oximetry 95 95 96 01/19/21 22:55 01/19/21 23:00 01/19/21 23:05 Pulse Rate 60 60 60 Respiratory Rate 16 20 18 Blood Pressure 130/68 132/71 133/75 Pulse Oximetry 94 95 96 01/19/21 23:10 01/19/21 23:15 01/19/21 23:20 Pulse Rate 60 60 60 Respiratory Rate 17 13 13 Blood Pressure 124/74 120/72 122/68 Pulse Oximetry 95 92 93 01/19/21 23:25 01/19/21 23:30 Pulse Rate 60 60 Respiratory Rate 14 15 Blood Pressure 130/72 Pulse Oximetry 91 <Brisa Ricketts MD - Last Filed: 01/21/21 01:26> Orders Ordered: Discontinued Medications Aspirin (Aspirin 81 Mg Chew Tab) 324 mg PO NOW ONE Stop: 01/19/21 17:13 Last Admin: 01/19/21 17:28 Dose: 324 mg Documented by: SANDEEP Heparin Sodium (Porcine) (Heparin 5,000 Unit/Ml Vial) 5,000 unit IV NOW ONE Stop: 01/19/21 19:39 Last Admin: 01/19/21 19:56 Dose: 5,000 unit Documented by: NIKO Sodium Chloride (Normal Saline 0.9%) 1,000 mls @ 150 mls/hr IV CONT JIMMY Last Infusion: 01/19/21 20:48 Dose: 0 mls/hr Documented by: Admin: 01/19/21 18:24 Dose: 150 mls/hr Documented by: RIKY Heparin Sodium/Dextrose (Heparin Drip) 25,000 unit in 500 mls @ 20 mls/hr IV CONT JIMMY; Protocol Last Admin: 01/19/21 19:56 Dose: 1,000 units/hr, 20 mls/hr Documented by: NIKO Amiodarone HCl/Dextrose (Nexterone) 150 mg in 100 mls @ 600 mls/hr IV NOW ONE; Protocol Stop: 01/19/21 22:09 Last Infusion: 01/19/21 23:20 Dose: 0 mls/hr Documented by: Admin: 01/19/21 22:21 Dose: 600 mls/hr Documented by: ELIZABETH Amiodarone HCl/Dextrose (Nexterone) 360 mg in 200 mls @ 33.333 mls/hr IV NOW ONE; Protocol Stop: 01/20/21 03:59 Last Admin: 01/19/21 22:33 Dose: 33.33 mls/hr, 33.333 mls/hr Documented by: NIKO Nitroglycerin (Nitroglycerin 0.4 Mg Sl Tab) 0.4 mg SL [id number] PRN PRN Reason: Chest Pain Last Admin: 01/19/21 18:21 Dose: 0.4 mg Documented by: Admin: 01/19/21 18:15 Dose: 0.4 mg Documented by: Admin: 01/19/21 18:10 Dose: 0.4 mg Documented by: RIKY Nitroglycerin (Nitroglycerin Oint 1 Inch/Gm Oint...G.) 1 inch TOP NOW ONE Stop: 01/19/21 18:39 Last Admin: 01/19/21 18:51 Dose: 1 inch Documented by: RIKY Vital Signs Vital signs: Vital Signs - 8 hr 01/19/21 21:00 01/19/21 21:30 01/19/21 21:32 Pulse Rate 65 68 68 Respiratory Rate 13 20 21 Blood Pressure 113/56 L 121/68 Pulse Oximetry 94 96 96 01/19/21 22:00 01/19/21 22:19 01/19/21 22:20 Pulse Rate 64 60 60 Respiratory Rate 12 13 13 Blood Pressure 125/70 124/72 123/70 Pulse Oximetry 94 94 95 01/19/21 22:25 01/19/21 22:30 01/19/21 22:35 Pulse Rate 60 60 60 Respiratory Rate 14 17 13 Blood Pressure 125/71 124/70 121/71 Pulse Oximetry 94 94 94 01/19/21 22:40 01/19/21 22:46 01/19/21 22:50 Pulse Rate 63 60 60 Respiratory Rate 17 18 14 Blood Pressure 142/64 H 123/63 145/76 H Pulse Oximetry 95 95 96 01/19/21 22:55 01/19/21 23:00 01/19/21 23:05 Pulse Rate 60 60 60 Respiratory Rate 16 20 18 Blood Pressure 130/68 132/71 133/75 Pulse Oximetry 94 95 96 01/19/21 23:10 01/19/21 23:15 01/19/21 23:20 Pulse Rate 60 60 60 Respiratory Rate 17 13 13 Blood Pressure 124/74 120/72 122/68 Pulse Oximetry 95 92 93 01/19/21 23:25 01/19/21 23:30 Pulse Rate 60 60 Respiratory Rate 14 15 Blood Pressure 130/72 Pulse Oximetry 91 MDM - Chest Pain <Dennis Krause, DO - Last Filed: 01/20/21 04:41> Lab Data Result diagrams: 01/19/21 17:13 01/19/21 17:13 Labs: Lab Results 01/19/21 01/19/21 01/19/21 Range/Units 16:55 17:13 17:13 WBC 7.6 (4.5-11.0) X10^3/uL RBC 4.42 L (4.5-5.9) X10^6/uL Hgb 13.5 (13.5-17.5) g/dL Hct 39.9 L (41-53) % MCV 90.3 (80-100) fL MCH 30.6 (26-34) PG MCHC 33.8 (30-36) % RDW 14.1 (11.6-14.8) % Plt Count 207 (150-400) X10^3/uL Neut % (Auto) 61.0 (50-75) % Lymph % (Auto) 21.2 L (25-40) % Pender % (Auto) 12.6 (3-14) % Eos % (Auto) 4.1 H (2-4) % Baso % (Auto) 1.1 (0-2) % Neut # (Auto) 4600 (4484-0990) /uL Lymph # (Auto) 1600 (4775-7500) /uL Pender # (Auto) 1000 H (0-900) /uL Eos # (Auto) 300 (0-450) /uL Baso # (Auto) 100 (0-100) /uL PT 20.1 H (10.1-12.7) SECONDS INR 1.8 H (0.9-1.3) Sodium (137-145) mmol/L Potassium (3.4-5.1) mmol/L Chloride (98-107) mmol/L Carbon Dioxide (22-32) mmol/L BUN (9-20) mg/dL Creatinine (0.66-1.25) mg/dL Estimated GFR (>60) mL/min BUN/Creatinine Ratio (6-22) Glucose (80-110) mg/dL Calcium (8.4-10.2) mg/dL Total Bilirubin (0.2-1.3) mg/dL AST (17-59) IU/L ALT (<50) IU/L Alkaline Phosphatase (38-126) U/L Total Creatine Kinase (55-170) U/L CK-MB (CK-2) (<2.37) ng/mL CK-MB (CK-2) Rel Index (1.5-5.0) % Troponin I (0.01-0.034) ng/mL NT-Pro-B Natriuret Pep (<125) pg/mL Total Protein (6.3-8.2) g/dL Albumin (3.5-5.0) g/dL Globulin (1.7-4.1) g/dL Albumin/Globulin Ratio (1.0-2.8) Lipase (23-300) U/L SARS-CoV-2 (PCR) Negative (Negative) 01/19/21 01/19/21 Range/Units 17:13 19:44 WBC (4.5-11.0) X10^3/uL RBC (4.5-5.9) X10^6/uL Hgb (13.5-17.5) g/dL Hct (41-53) % MCV (80-100) fL MCH (26-34) PG MCHC (30-36) % RDW (11.6-14.8) % Plt Count (150-400) X10^3/uL Neut % (Auto) (50-75) % Lymph % (Auto) (25-40) % Pender % (Auto) (3-14) % Eos % (Auto) (2-4) % Baso % (Auto) (0-2) % Neut # (Auto) (8718-7453) /uL Lymph # (Auto) (1950-0580) /uL Pender # (Auto) (0-900) /uL Eos # (Auto) (0-450) /uL Baso # (Auto) (0-100) /uL PT (10.1-12.7) SECONDS INR (0.9-1.3) Sodium 136 L (137-145) mmol/L Potassium 4.4 (3.4-5.1) mmol/L Chloride 103 (98-107) mmol/L Carbon Dioxide 24 (22-32) mmol/L BUN 17 (9-20) mg/dL Creatinine 0.91 (0.66-1.25) mg/dL Estimated GFR > 60.0 (>60) mL/min BUN/Creatinine Ratio 18.7 (6-22) Glucose 89 (80-110) mg/dL Calcium 9.4 (8.4-10.2) mg/dL Total Bilirubin 0.8 (0.2-1.3) mg/dL AST 44 (17-59) IU/L ALT 28 (<50) IU/L Alkaline Phosphatase 71 (38-126) U/L Total Creatine Kinase 268 H (55-170) U/L CK-MB (CK-2) 2.23 (<2.37) ng/mL CK-MB (CK-2) Rel Index 0.8 L (1.5-5.0) % Troponin I < 0.012 < 0.012 (0.01-0.034) ng/mL NT-Pro-B Natriuret Pep 87 (<125) pg/mL Total Protein 7.3 (6.3-8.2) g/dL Albumin 4.3 (3.5-5.0) g/dL Globulin 3.0 (1.7-4.1) g/dL Albumin/Globulin Ratio 1.4 (1.0-2.8) Lipase 57 (23-300) U/L SARS-CoV-2 (PCR) (Negative) <Brisa Ricketts MD - Last Filed: 01/21/21 01:26> Medical Records Data Attestation: I reviewed the patient's medical records. Lab Data Attestation: I reviewed the patient's lab results. Labs: Lab Results 01/19/21 01/19/21 01/19/21 Range/Units 16:55 17:13 17:13 WBC 7.6 (4.5-11.0) X10^3/uL RBC 4.42 L (4.5-5.9) X10^6/uL Hgb 13.5 (13.5-17.5) g/dL Hct 39.9 L (41-53) % MCV 90.3 (80-100) fL MCH 30.6 (26-34) PG MCHC 33.8 (30-36) % RDW 14.1 (11.6-14.8) % Plt Count 207 (150-400) X10^3/uL Neut % (Auto) 61.0 (50-75) % Lymph % (Auto) 21.2 L (25-40) % Pender % (Auto) 12.6 (3-14) % Eos % (Auto) 4.1 H (2-4) % Baso % (Auto) 1.1 (0-2) % Neut # (Auto) 4600 (9874-3551) /uL Lymph # (Auto) 1600 (4852-1088) /uL Pender # (Auto) 1000 H (0-900) /uL Eos # (Auto) 300 (0-450) /uL Baso # (Auto) 100 (0-100) /uL PT 20.1 H (10.1-12.7) SECONDS INR 1.8 H (0.9-1.3) Sodium (137-145) mmol/L Potassium (3.4-5.1) mmol/L Chloride (98-107) mmol/L Carbon Dioxide (22-32) mmol/L BUN (9-20) mg/dL Creatinine (0.66-1.25) mg/dL Estimated GFR (>60) mL/min BUN/Creatinine Ratio (6-22) Glucose (80-110) mg/dL Calcium (8.4-10.2) mg/dL Total Bilirubin (0.2-1.3) mg/dL AST (17-59) IU/L ALT (<50) IU/L Alkaline Phosphatase (38-126) U/L Total Creatine Kinase (55-170) U/L CK-MB (CK-2) (<2.37) ng/mL CK-MB (CK-2) Rel Index (1.5-5.0) % Troponin I (0.01-0.034) ng/mL NT-Pro-B Natriuret Pep (<125) pg/mL Total Protein (6.3-8.2) g/dL Albumin (3.5-5.0) g/dL Globulin (1.7-4.1) g/dL Albumin/Globulin Ratio (1.0-2.8) Lipase (23-300) U/L SARS-CoV-2 (PCR) Negative (Negative) 01/19/21 01/19/21 Range/Units 17:13 19:44 WBC (4.5-11.0) X10^3/uL RBC (4.5-5.9) X10^6/uL Hgb (13.5-17.5) g/dL Hct (41-53) % MCV (80-100) fL MCH (26-34) PG MCHC (30-36) % RDW (11.6-14.8) % Plt Count (150-400) X10^3/uL Neut % (Auto) (50-75) % Lymph % (Auto) (25-40) % Pender % (Auto) (3-14) % Eos % (Auto) (2-4) % Baso % (Auto) (0-2) % Neut # (Auto) (6592-1459) /uL Lymph # (Auto) (6554-2773) /uL Pender # (Auto) (0-900) /uL Eos # (Auto) (0-450) /uL Baso # (Auto) (0-100) /uL PT (10.1-12.7) SECONDS INR (0.9-1.3) Sodium 136 L (137-145) mmol/L Potassium 4.4 (3.4-5.1) mmol/L Chloride 103 (98-107) mmol/L Carbon Dioxide 24 (22-32) mmol/L BUN 17 (9-20) mg/dL Creatinine 0.91 (0.66-1.25) mg/dL Estimated GFR > 60.0 (>60) mL/min BUN/Creatinine Ratio 18.7 (6-22) Glucose 89 (80-110) mg/dL Calcium 9.4 (8.4-10.2) mg/dL Total Bilirubin 0.8 (0.2-1.3) mg/dL AST 44 (17-59) IU/L ALT 28 (<50) IU/L Alkaline Phosphatase 71 (38-126) U/L Total Creatine Kinase 268 H (55-170) U/L CK-MB (CK-2) 2.23 (<2.37) ng/mL CK-MB (CK-2) Rel Index 0.8 L (1.5-5.0) % Troponin I < 0.012 < 0.012 (0.01-0.034) ng/mL NT-Pro-B Natriuret Pep 87 (<125) pg/mL Total Protein 7.3 (6.3-8.2) g/dL Albumin 4.3 (3.5-5.0) g/dL Globulin 3.0 (1.7-4.1) g/dL Albumin/Globulin Ratio 1.4 (1.0-2.8) Lipase 57 (23-300) U/L SARS-CoV-2 (PCR) (Negative) Imaging Data Chest x-ray: Radiologist's Impression: FINDINGS: Surgical changes and devices: Left chest wall dual lead pacemaker and leads appear similar in position. Lungs and pleura: Lungs are clear. No pleural effusions or pneumothorax. Mediastinum: Mediastinal contours appear normal. Heart size is normal. Bones and chest wall: No suspicious bony lesions. Overlying soft tissues appear unremarkable. IMPRESSION: 1. No acute cardiopulmonary disease. Dictated by: Elmer Alvarez M.D. on 01/19/2021 at 17:31 ECG Data Attestation: I personally reviewed and interpreted this ECG as follows: Interpretation: #1 17:12 Atrial paced rhythm at a rate of 60 Left axis deviation No acute ischemic changes 21:29 - 3 minute run of V tach. Spontaneous conversion to NSR #2 21:34 Sinus rhythm with first-degree block Left axis deviation T-waves across the precordium and anterior are flattened to flipped, changed from prior EKG 21:50 Recurrent chest pain, 11/18 21:55 Atrial paced at a rate of 61 Flattened T-waves MDM Narrative Medical decision making narrative: 75-year-old gentleman with known coronary artery disease and 3 recent stents with discussion of 4th stent needed and scheduled as an outpatient to be done this week. Reportedly had a stress test done and that a 4th stent to be done this week was canceled. He was out mowing his lawn and doing yd work this afternoon when he developed 3/10 chest pain. He took 3 of his own nitroglycerin which had little effect. When presenting to the emergency department he was still complaining of 3 of 10 chest pain that did rib essentially resolved with 3 nitro in the emergency department. Initial workup was reassuring with no ST T wave changes on his EKG and 1st and 2nd troponins normal. He stands up to void and with that minimal amount of exertion he has another episode of chest pain. At that point heparin drip is started Phone calls are made to all hospitals from [address] There are no beds available. With his unstable angina opted to have him remain in the emergency room through His home CPAP was being used, he was asleep and experienced the 3 minutes run of ventricular tachycardia. He did not describe this is painful and was hemodynamically stable through that event with spontaneous conversion to sinus rhythm EKG following the episode of V-tach did show changed ST waves across the precordium. Contacted Dr. Hutchinson surgical garment inspector on-call at [facility] where his recent heart catheterization and current surgical garment inspector are. At that point patient began having additional chest pain 3/10. Nitro drip was started repeat EKG does not show ST elevation. Pain continues at 3/10 with nitro drip, heparin drip. Amiodarone has been loaded and is currently infusing due to the ventricular tachycardia. Not currently using morphine to help control his pain. He remains hemodynamically Due to the unstable nature of what appears to be his progressive acute coronary syndrome we will facilitate an ER to ER transfer from [facility] to [facility]. If urgent catheterization is deemed appropriate it will be much more appropriate to have him boarding at a facility where that is possible. Spoke with Dr. Hutchinson, surgical garment inspector, transfer center as well as powerhouse attendant and excepting ER physician Dr. Willett. Patient will be transferred ALS to [facility] ER. <Brisa Ricketts MD - Last Filed: 01/21/21 01:26> Critical Care Time Critical Care Time: Yes Total Critical Care Time: 122 Attestation: Critical care time is separate from other billable procedures. This critical care time includes consultation with family and other consulting doctors, review of records, and interpretation of data from labs, EKGs and imaging as well as managements of acute coronary syndrome, ventricular arrhythmias, IV rate and rhythm medications as well as IV nitro and heparin and extensive amount of time in consulting with additional hospitals in finding appropriate placement. Discharge Plan Departure Patient Disposition: [facility] Clinical Impression: Angina pectoris, unstable Prescriptions: No Action warfarin [Coumadin] 7.5 mg tablet See Rx Instructions .ROUTE .COMPLEX RF: 0 dofetilide [Tikosyn] 125 mcg capsule 250 mcg PO Q12H RF: 0 irbesartan [Avapro] 150 mg tablet 150 mg PO DAILY RF: 0 furosemide 20 mg tablet 20 mg PO DAILY RF: 0 sertraline 50 mg tablet 50 mg PO DAILY RF: 0 tamsulosin [Flomax] 0.4 mg capsule 0.4 mg PO DAILY RF: 0 triamcinolone acetonide [Nasacort] 55 mcg Aerosol,Ophelia 1 spray INTRANASAL DAILY PRN (Reason: Allergy Symptoms) RF: 0 albuterol sulfate [Ventolin HFA] 90 mcg/actuation Hfa Aerosol Inhaler 1 puff INHALATION QID PRN (Reason: Shortness Of Breath) RF: 0 sildenafil 100 mg tablet 100 mg PO DAILY PRN (Reason: Erectile Dysfunction) RF: 0 prednisolone acetate 1 % drops,suspension 1 drp EYE-RIGHT QID RF: 0 metronidazole 0.75 % cream 1 applic TOPICAL RF: 0 Referrals: Gerald Justice MD [Primary Care Provider] -
[2021-01-19 18:01] LABS: NT-proBNP (BNP-Adult 18+) 87 pg/mL (<125); Troponin I < 0.012 ng/mL (0.01-0.034)
[2021-01-19 18:04] LABS: CKMB % Relative Index 0.8 % (1.5-5.0); Creatine Kinase MB 2.23 ng/mL (<2.37); HEMOLYSIS 43 (0-50)
[2021-01-19] MEDS: NITROGLYCERIN 0.4 MG SL TAB SL ×3 (18:10→18:21)
[2021-01-19] MEDS: SODIUM CHLORIDE 0.9% 1,000 ML 150 ML IV (18:24)
--- NOTE | 2021-01-19 18:45 | PC.NURSE ---
noemí reports initial discomfort 4/10. reduced to 3/10 when he arrived to the ED. nitro x 3 reduced to 1/10. Pt stood at bedside to urinate and pain increased to 2/10. Provider notified and ordered nitro paste.
[2021-01-19] MEDS: NITROGLYCERIN OINT 1 INCH/GM OINT...G. TOP (18:51)
[2021-01-19 19:25] LABS: COVID19 -Nasal RAPID Negative (Negative)
[2021-01-19] MEDS: HEPARIN 5,000 UNIT/ML VIAL 5000 UNIT IV (19:56)
[2021-01-19] MEDS: HEPARIN DRIP 25,000 UNIT/500 ML IV.SOLN 20 UNIT IV (19:56)
[2021-01-19 20:19] LABS: Troponin I < 0.012 ng/mL (0.01-0.034)
--- NOTE | 2021-01-19 21:57 | PC.NURSE ---
at approx. 2150 he developed at rest sub sternal chest pressure.DR Ricketts was orded,12 ordered,cardiology consulted.
[2021-01-19] MEDS: NITROGLYCERIN 50 MG/250 ML INFUS..BTL 6 MG IV (22:08)
[2021-01-19] MEDS: AMIODARONE 150 MG/100 ML PIGGYBACK 600 MG IV (22:21)
[2021-01-19] MEDS: AMIODARONE 360 MG/200 ML PIGGYBACK 33.333 MG IV (22:33)
[2021-01-19] MEDS: MORPHINE 4 MG/ML INJ (22:47)
--- NOTE | 2021-01-19 23:17 | PC.NURSE ---
Addendum entered by Sammie Martinez R.N. 01/21/21 18:54: at 2325 on 01/19/21 He was transferred to [facility] with heparin gtt running at 20 ml per hour. Original Note: His c/p is decreasing he said.It was a #4 at its highest and now maybe a two.Nitro gtt is infusing at 70 mcg per min,heparin gtt at 20 ml per hour and amiodorone gtt at 33.33 ml per hour.These gtts will still be infusing en route to [facility].
--- NOTE | 2021-01-20 00:23 | PC.NURSE ---
When he left the ED his c/p was almost gone,maybe a one he said.
--- NOTE | 2021-01-22 09:23 | PC.NURSE ---
Per RN patient was transfered with Heparin drip continuing.
== END 2021-01-19 23:25 | disposition short-term general hospital (02) ==
PROVIDERS: Emergency Medicine; Emergency Provider Emergency Medicine; PCP Internal Medicine
DX: I20.0 Unstable angina (principal); R06.02 Shortness of breath; Z20.822 Contact with and (suspected) exposure to COVID-19
CPT/HCPCS: 36415; 71045; 80053; 82550; 82553; 83690; 83880; 84484; 85025; 85610; 87635; 93005; 93010; 96361; 96365; 96366; 99284; 99291; 99292; C9803; J0282; J1644; J2270

== ENCOUNTER 2021-07-01 08:37 | Emergency (ER) | payer MEDICARE, OTHER, SELFPAY ==
[2021-07-01 08:38] VITALS: BP 156/90; PULSE 80; RESP 18; TEMP 36.6; O2SAT 98
[2021-07-01 09:04] VITALS: BP 156/90; RESP 18; TEMP 36.6; O2SAT 96
--- NOTE | 2021-07-01 09:10 | DI.RAD.S_ITS ---
PROCEDURE: XR FINGER RT MIN 2V INDICATIONS: Thumb pain and swelling TECHNIQUE: AP hand, 2 views of the 1st finger(s) acquired. COMPARISON: None. FINDINGS: Bones: No fractures or dislocations. No suspicious bony lesions. Moderate 1st carpometacarpal and metacarpophalangeal joint degeneration, and mild triscaphe joint and 1st interphalangeal joint degeneration. Soft tissues: No suspicious soft tissue calcifications. Soft tissue swelling over the base of the thumb. IMPRESSION: Moderate degenerative joint disease. Dictated by: Darrin Hodge M.D. on 07/01/2021 at 9:28 Approved by: Darrin Hodge M.D. on 07/01/2021 at 9:30
--- NOTE | 2021-07-01 09:10 | ED.SKABFB ---
HPI - Skin/Abscess/Foreign Bdy General Chief complaint: Skin/Abscess/Foreign Body Stated complaint: Swollen/infected thumb Time Seen by Provider: 07/01/21 09:03 Source: patient Mode of arrival: Ambulatory Limitations: no limitations History of Present Illness HPI narrative: Patient complains of right thumb pain and swelling for the past 2 days. No known injury. Patient is not diabetic. Skin is intact. Complains of pain and redness around the thumb nail. No discharge. No known foreign body. Related Data Home Medications Medication Instructions Recorded Confirmed dofetilide 125 mcg capsule 250 mcg PO Q12H 08/07/19 04/27/20 (Tikosyn) furosemide 20 mg tablet 20 mg PO DAILY 08/07/19 04/27/20 irbesartan 150 mg tablet (Avapro) 150 mg PO DAILY 08/07/19 04/27/20 sertraline 50 mg tablet 50 mg PO DAILY 08/07/19 04/27/20 tamsulosin 0.4 mg capsule (Flomax) 0.4 mg PO DAILY 08/07/19 04/27/20 warfarin 7.5 mg tablet (Coumadin) See Rx Instructions .ROUTE .COMPLEX 08/07/19 04/27/20 albuterol sulfate 90 mcg/actuation 1 puff INHALATION QID PRN 09/29/19 04/27/20 aerosol inhaler (Ventolin HFA) triamcinolone acetonide 55 mcg 1 spray INTRANASAL DAILY PRN 09/29/19 04/27/20 nasal spray aerosol (Nasacort) metronidazole 0.75 % topical cream 1 applic TOPICAL 04/27/20 prednisolone acetate 1 % eye 1 drp EYE-RIGHT QID 04/27/20 04/27/20 drops,suspension sildenafil 100 mg tablet 100 mg PO DAILY PRN 04/27/20 04/27/20 Previous Rx's Medication Instructions Recorded cephalexin 500 mg capsule 500 mg PO QID #20 cap 07/01/21 hydrocodone 5 mg-acetaminophen 325 1 tab PO Q6H PRN #7 tab 07/01/21 mg tablet ondansetron 4 mg disintegrating 4 mg PO Q8H PRN #10 tab 07/01/21 tablet Allergies Allergy/AdvReac Type Severity Reaction Status Date / Time Iodinated Contrast Media Allergy Verified 07/01/21 08:47 iodine Allergy Verified 07/01/21 08:47 Review of Systems Review of Systems Narrative: GENERAL: Denies chills, fatigue, malaise, fever, sweats. HEENT: Denies sinus pain, ear pain, sore throat RESPIRATORY: Denies dyspnea, cough CARDIOVASCULAR: Denies chest pain, palpitations GASTROINTESTINAL: Denies nausea, vomiting, abdominal pain : Denies dysuria, frequency, hematuria MUSCULOSKELETAL: Positive muscle or bony pain SKIN: Denies rash, skin lesions NEUROLOGIC: Denies weakness, numbness ROS Unobtainable: All systems reviewed & are unremarkable except as noted in HPI and below Patient History Medical History (Updated 07/01/21 @ 10:17 by Ry Cannon MD) Anxiety Arrhythmia Arthritis BPH (benign prostatic hyperplasia) Chronic anticoagulation COPD (chronic obstructive pulmonary disease) Diverticulitis Easy bruisability GERD (gastroesophageal reflux disease) Gout History of cardioversion HTN (hypertension) Hx of agent [place] exposure Mitral regurgitation Obesity Obstructive sleep apnea Pacemaker (06/06/18) Pain Seasonal allergies Sinus bradycardia Surgical History H/O inguinal hernia repair (~1982) History of surgery (~2018) Hx of nasal septoplasty (~1988) Status cardiac pacemaker Social History household members: spouse Smoking Status: Former smoker alcohol intake: never Smoking Status: Former smoker alcohol intake frequency: 0-2 drinks per day Substance Use Type: does not use Exam Narrative Exam Narrative: GENERAL: in no distress, not toxic not dyspneic HEAD: Normocephalic. EXTREMITIES: No gross deformities. Examination of right thumb, skin is intact there is erythema at the cuticle, no no no palpable abscess or fluctuance. Thumb nail is intact. No tenderness to the MCP joint. Diffuse erythema of the pad of thumb. NEURO: AOx4. SKIN: Warm and dry PSYCH: Not anxious, is cooperative Initial Vital Signs Initial Vital Signs: Vital Signs Temperature 97.8 F 07/01/21 08:38 Pulse Rate 80 07/01/21 08:38 Respiratory Rate 18 07/01/21 08:38 Blood Pressure 156/90 H 07/01/21 08:38 Pulse Oximetry 98 07/01/21 08:38 Course Course Course Narrative: No new issues during course of stay Orders Ordered: Discontinued Medications Ceftriaxone Sodium 1,000 mg/ (Sodium Chloride) 100 mls @ 200 mls/hr IV NOW ONE Stop: 07/01/21 09:10 Last Infusion: 07/01/21 10:29 Dose: 0 mls/hr Documented by: Admin: 07/01/21 09:25 Dose: 200 mls/hr Documented by: DENIS Reevaluation(s) Reevaluation #1: Reviewed results with patient and agrees with treatment plan and follow-up. Time: 10:16 Vital Signs Vital signs: Vital Signs - 8 hr 07/01/21 08:38 07/01/21 09:04 07/01/21 09:57 Temperature 97.8 F 97.8 F Pulse Rate 80 60 Respiratory Rate 18 18 Blood Pressure 156/90 H 156/90 H Pulse Oximetry 98 96 96 07/01/21 09:58 07/01/21 10:00 Temperature Pulse Rate 60 60 Respiratory Rate Blood Pressure 148/88 H 141/89 H Pulse Oximetry 96 97 MDM - Skin/Abscess/Foreign Bdy Differential Diagnosis Differential diagnosis: Likely abscess of skin or subcutaneous tissue and other (Paronychia/felon/foreign body/subungual hematoma) Lab Data Result diagrams: 07/01/21 08:57 07/01/21 08:57 Labs: Lab Results 07/01/21 07/01/21 Range/Units 08:57 08:57 WBC 6.2 (4.5-11.0) X10^3/uL RBC 4.98 (4.5-5.9) X10^6/uL Hgb 14.8 (13.5-17.5) g/dL Hct 44.6 (41-53) % MCV 89.6 (80-100) fL MCH 29.7 (26-34) PG MCHC 33.2 (30-36) % RDW 14.0 (11.6-14.8) % Plt Count 226 (150-400) X10^3/uL Neut % (Auto) 66.9 (50-75) % Lymph % (Auto) 19.1 L (25-40) % [place] % (Auto) 10.8 (3-14) % Eos % (Auto) 2.7 (2-4) % Baso % (Auto) 0.5 (0-2) % Neut # (Auto) 4100 (9347-0285) /uL Lymph # (Auto) 1200 (4824-8031) /uL [place] # (Auto) 700 (0-900) /uL Eos # (Auto) 200 (0-450) /uL Baso # (Auto) 0 (0-100) /uL Sodium 142 (137-145) mmol/L Potassium 4.0 (3.4-5.1) mmol/L Chloride 105 (98-107) mmol/L Carbon Dioxide 28 (22-32) mmol/L BUN 19 (9-20) mg/dL Creatinine 0.85 (0.66-1.25) mg/dL Estimated GFR > 60.0 (>60) mL/min BUN/Creatinine Ratio 22.4 H (6-22) Glucose 101 (80-110) mg/dL Calcium 9.5 (8.4-10.2) mg/dL Total Bilirubin 0.7 (0.2-1.3) mg/dL AST 30 (17-59) IU/L ALT 22 (<50) IU/L Alkaline Phosphatase 85 (38-126) U/L Total Protein 7.6 (6.3-8.2) g/dL Albumin 4.7 (3.5-5.0) g/dL Globulin 2.9 (1.7-4.1) g/dL Albumin/Globulin Ratio 1.6 (1.0-2.8) Imaging Data Extremity x-ray #1: Radiologist's Impression: [address] [address] XRay Report Signed Patient: Kash Mcdaniels MR#: [id number] : 1945 Acct:[id number] Age/Sex: 76 / M Date of Service: 07/01/21 Loc: ED Accession Number: [id number] ?? Procedure: XR finger RT min 2V Ordering Provider: Ry Cannon MD PROCEDURE:? XR FINGER RT MIN 2V ? INDICATIONS:? Thumb pain and swelling ? TECHNIQUE:? AP hand, 2 views of the 1st finger(s) acquired.? ? COMPARISON:? None. ? FINDINGS:? ? Bones:? No fractures or dislocations.? No suspicious bony lesions.? Moderate 1st carpometacarpal and metacarpophalangeal joint degeneration, and mild triscaphe joint and 1st interphalangeal joint degeneration. ? Soft tissues:? No suspicious soft tissue calcifications.? Soft tissue swelling over the base of the thumb.? ? IMPRESSION:? Moderate degenerative joint disease. ? ? Dictated by: Darrin Hodge M.D. on 07/01/2021 at 9:28 ? ? Approved by: Darrin Hodge M.D. on 07/01/2021 at 9:30 ? MDM Narrative Medical decision making narrative: Appropriate for discharge home. Patient not toxic. Laboratory studies and imaging reassuring. Return precautions reviewed patient. Orthopedic follow-up given for patient. Patient agrees with treatment plan. At this time no incision and drainage as no palpable fluctuance Discharge Plan Departure Patient Disposition: Home Clinical Impression: Paronychia Instructions: Paronychia Activity Restrictions/Additional Instructions: Call provided orthopedic office today for office recheck of your thumb within the week. Return if worsening questions or concerns. No driving or operating machinery when taking prescribed pain medication. Pressure continue antibiotic pill prescribed this afternoon. Prescriptions: New cephalexin 500 mg capsule 500 mg PO QID Qty: 20 RF: 0 hydrocodone-acetaminophen 5-325 mg tablet 1 tab PO Q6H PRN (Reason: pain) Qty: 7 RF: 0 ondansetron 4 mg tablet,disintegrating 4 mg PO Q8H PRN (Reason: nausea and vomiting) Qty: 10 RF: 0 No Action warfarin [Coumadin] 7.5 mg tablet See Rx Instructions .ROUTE .COMPLEX RF: 0 dofetilide [Tikosyn] 125 mcg capsule 250 mcg PO Q12H RF: 0 irbesartan [Avapro] 150 mg tablet 150 mg PO DAILY RF: 0 furosemide 20 mg tablet 20 mg PO DAILY RF: 0 sertraline 50 mg tablet 50 mg PO DAILY RF: 0 tamsulosin [Flomax] 0.4 mg capsule 0.4 mg PO DAILY RF: 0 triamcinolone acetonide [Nasacort] 55 mcg Aerosol,[place] 1 spray INTRANASAL DAILY PRN (Reason: Allergy Symptoms) RF: 0 albuterol sulfate [Ventolin HFA] 90 mcg/actuation Hfa Aerosol Inhaler 1 puff INHALATION QID PRN (Reason: Shortness Of Breath) RF: 0 sildenafil 100 mg tablet 100 mg PO DAILY PRN (Reason: Erectile Dysfunction) RF: 0 prednisolone acetate 1 % drops,suspension 1 drp EYE-RIGHT QID RF: 0 metronidazole 0.75 % cream 1 applic TOPICAL RF: 0 Referrals: Gerald Justice MD [Primary Care Provider] - Ines Pete MD [Physician] -
[2021-07-01 09:24] LABS: Add Manual Diff / Slide Review NO; Basophils Absolute Auto 0 /uL (0-100); Basophils Percent Auto 0.5 % (0-2); Eosinophils Absolute Auto 200 /uL (0-450); Eosinophils Percent Auto 2.7 % (2-4); Hematocrit 44.6 % (41-53); Hemoglobin 14.8 g/dL (13.5-17.5); Lymphocytes Absolute Auto 1200 /uL (1100-4500); Lymphocytes Percent Auto 19.1 % (25-40); Mean Corpuscular HGB Conc 33.2 % (30-36); Mean Corpuscular Hemoglobin 29.7 PG (26-34); Mean Corpuscular Volume 89.6 fL (80-100); Monocytes Absolute Auto 700 /uL (0-900); Monocytes Percent Auto 10.8 % (3-14); Neutrophils Absolute Auto 4100 /uL (1500-7000); Neutrophils Percent Auto 66.9 % (50-75); Platelet Count 226 X10^3/uL (150-400); Red Blood Cell Count 4.98 X10^6/uL (4.5-5.9); White Blood Cell Count 6.2 X10^3/uL (4.5-11.0)
[2021-07-01] MEDS: cefTRIAXone 1,000 MG in SODIUM CHLORIDE 0.9% 100 ML 200 ML IV (09:25)
[2021-07-01 09:31] LABS: Alanine Aminotransferase 22 IU/L (<50); Albumin 4.7 g/dL (3.5-5.0); Albumin Globulin Ratio 1.6 (1.0-2.8); Alkaline Phosphatase 85 U/L (38-126); Aspartate Aminotransferase 30 IU/L (17-59); BUN Creatinine Ratio 22.4 (6-22); Bilirubin Total 0.7 mg/dL (0.2-1.3); Blood Urea Nitrogen 19 mg/dL (9-20); Calcium 9.5 mg/dL (8.4-10.2); Carbon Dioxide 28 mmol/L (22-32); Chloride 105 mmol/L (98-107); Estimated Glomerular Filt Rate > 60.0 mL/min (>60); Globulin 2.9 g/dL (1.7-4.1); Glucose 101 mg/dL (80-110); HEMOLYSIS < 15 (0-50); Sodium 142 mmol/L (137-145); Total Protein 7.6 g/dL (6.3-8.2)
[2021-07-01 09:57] VITALS: PULSE 60; O2SAT 96
[2021-07-01 09:58] VITALS: BP 148/88; PULSE 60; O2SAT 96
[2021-07-01 10:00] VITALS: BP 141/89; PULSE 60; O2SAT 97
== END 2021-07-01 10:32 | disposition home or self-care (01) ==
PROVIDERS: Emergency Provider Emergency Medicine; PCP Internal Medicine
DX: L03.011 Cellulitis of right finger (principal)
CPT/HCPCS: 36415; 73140; 80053; 85025; 96365; 99284; J0696

== ENCOUNTER → 2021-10-07 10:05 | Outpatient (CLI) | payer MEDICARE, OTHER, SELFPAY ==
--- NOTE | 2021-10-07 | DI.CT.S_ITS ---
PROCEDURE: CT LUMBAR SPINE WO CON INDICATIONS: LUMBAR PAIN TECHNIQUE: Noncontrast 3 mm thick sections acquired from the T12 level to the sacrum. Sagittal and coronal reformats were constructed. For radiation dose reduction, the following was used: automated exposure control. COMPARISON: [facility], CR, XR LUMBAR SPINE WITH OBLIQUES PLUS FLEXION EXTENSION, 09/28/2021, 15:24. FINDINGS: Image quality: Excellent. Bones: There is minimal retrolisthesis seen at the L1-L2 and the L2-L3 levels. No acute vertebral body compression fractures. No suspicious lytic or blastic bony lesions. No pars defects. Age-appropriate lower thoracic spine degenerative changes are seen. Bridging anterior osteophytes are seen throughout the visualized lower thoracic spine. T12-L1: There is mild loss of disc height seen. Bridging anterior osteophytes are seen, as on series 5, image 38. Mild generalized disc bulge is seen. No significant neural foraminal or central canal narrowing can be seen. L1-L2: The disc height is well preserved. At least moderate bridging anterior osteophytes are seen. Moderate generalized disc bulge is seen. Moderate bilateral neural foraminal narrowing is seen. Moderate central canal narrowing is seen. L2-L3: The disc height is well preserved. At least moderate disc bulge is seen. Moderate facet joint hypertrophy is seen. There is moderate to severe bilateral neural foraminal narrowing seen. At least moderate central canal narrowing is seen, as on series 3, image 52. L3-L4: The disc height is well preserved. Moderate generalized disc bulge is seen. There is a superimposed central disc protrusion. Moderate facet joint hypertrophy is seen. There is moderate to severe bilateral neural foraminal narrowing seen. Moderate to severe central canal narrowing is seen. L4-L5: The disc height is well preserved at this level. At least moderate disc bulge is seen, with a superimposed central protrusion. Moderate to prominent facet hypertrophy can be seen at this level. There is moderate to severe bilateral neural foraminal narrowing, right worse than left. Moderate to severe central canal narrowing is seen. L5-S1: The disc height is well preserved. There is a moderate disc bulge seen, with a central/right disc protrusion, as on series 3, image 83 and on series 6, image 33. Macrometastasis set there is moderate to severe bilateral neural foraminal narrowing, left worse than right. Moderate central canal narrowing is seen. Soft tissues: No retroperitoneal masses or hematomas. Visualized aorta is normal in caliber. Atherosclerotic calcification is noted. Pacer leads are partially seen on the copyist view. IMPRESSION: Multiple levels of relatively prominent lumbar spine degenerative change are seen. Incidental note is made of: Pacer leads Atherosclerotic calcification Dictated by: Jase Sparrow M.D. on 10/07/2021 at 11:50 Approved by: Jase Sparrow M.D. on 10/07/2021 at 11:55
== END ==
PROVIDERS: PCP Internal Medicine; Referring Provider Physical Medicine & Rehabilitation Pain Medicine; Visit Provider Physical Medicine & Rehabilitation Pain Medicine
DX: M47.816 Spondylosis without myelopathy or radiculopathy, lumbar region (principal); M54.50 Low back pain, unspecified; I25.10 Atherosclerotic heart disease of native coronary artery without angina pectoris; Z95.0 Presence of cardiac pacemaker
CPT/HCPCS: 72131

== ENCOUNTER → 2021-11-11 08:36 | Outpatient (CLI) | payer MEDICARE, OTHER, SELFPAY ==
--- NOTE | 2021-11-11 | DI.RAD.S_ITS ---
PROCEDURE: FL UPPER GI W AIR INDICATIONS: CHRONIC SORE THROAT WITH COUGH COMPARISON: [facility], CT, CT LUMBAR SPINE WO CON, 10/07/2021, 10:11. [facility], CT, CT ANGIO CHEST, 05/10/2021, 12:00. [facility], CR, XR CHEST 2V, 11/11/2021, 9:47. FINDINGS: KUB: Preprocedural senior living sales counselor film demonstrates a normal bowel gas pattern. No suspicious abdominal calcifications. Visualized solid organ contours appear normal. Bony structures appear unremarkable. Esophagus: Esophageal mucosa is normal on air-contrast views. There is normal esophageal peristalsis. There is focal narrowing of the distal esophagus as stated courses posterior to the heart (left atrium). No strictures, extrinsic mass effects, or diverticula. There is a small hiatal hernia. No elicited gastroesophageal reflux. There is normal transit of a calibrated barium tablet through the esophagus. Stomach: The stomach is normally distensible, with normal rugal fold thickness. No mucosal masses or ulcers. Pylorus and duodenal bulb appear normal in morphology. Duodenal folds are normal in thickness as well. IMPRESSION: 1. The distal esophagus is narrowed, probably from mass effect caused by enlarged right atrium. 2. Small hiatal hernia. 3. Normal stomach, duodenum and proximal jejunum. Dictated by: Darrin Hodge M.D. on 11/11/2021 at 12:30 Approved by: Darrin Hodge M.D. on 11/11/2021 at 12:40
--- NOTE | 2021-11-11 | DI.RAD.S_ITS ---
PROCEDURE: XR CHEST 2V INDICATIONS: COUGH TECHNIQUE: 2 views of the chest were acquired. COMPARISON: [facility], CR, XR CHEST 1V, 01/19/2021, 17:17. FINDINGS: Surgical changes and devices: Left-sided dual-chamber pacemaker good position, unchanged. Lungs and pleura: Mild left basilar platelike atelectasis or scarring stable. Mediastinum: Mediastinal contours are normal. Heart size is normal. Bones and chest wall: No suspicious bony abnormalities. Soft tissues appear unremarkable. IMPRESSION: No acute cardiopulmonary findings Approved by: Alvin Mabry M.D. on 11/11/2021 at 10:54
== END ==
PROVIDERS: PCP Internal Medicine; Referring Provider Physical Medicine & Rehabilitation Pain Medicine; Visit Provider Physical Medicine & Rehabilitation Pain Medicine
DX: R05.3 Chronic cough (principal); J31.2 Chronic pharyngitis; R49.0 Dysphonia; K44.9 Diaphragmatic hernia without obstruction or gangrene; Z95.0 Presence of cardiac pacemaker
CPT/HCPCS: 71046; 74246

== ENCOUNTER → 2021-11-26 11:02 | Outpatient (CLI) | payer MEDICARE, OTHER, SELFPAY ==
--- NOTE | 2021-11-26 | DI.CT.S_ITS ---
PROCEDURE: CT CHEST WO CON INDICATIONS: DYSPHONIA,PULMONARY NODULE TECHNIQUE: Noncontrast 5 mm thick sections acquired from the pulmonary apices to the posterior costophrenic angles. 1 mm lung window, 5 mm thick coronal and sagittal and 7 mm axial MIP reformats were then acquired. For radiation dose reduction, the following was used: automated exposure control, adjustment of mA and/or kV according to patient size. COMPARISON: [facility], CT, CT ANGIO CHEST PE PROTOCOL, 09/30/2019, 0:01. FINDINGS: Image quality: Excellent. Lungs and pleura: Central and peripheral airways are patent without endobronchial nodule or bronchial wall thickening. There is mild horizontal scarring posteriorly in the left lower lobe and to lesser extent right lower lobe. No other alveolar opacities. There is a 4 mm solid nodule medially in the right upper lobe, 3/84 which has been present greater than two years, unchanged in size. There is a pleural-based nodule medially in the superior segment right lower lobe measuring 8 mm, 3/170, also unchanged. Perivascular nodules in the anterior left upper lobe and juxta fissural nodules associated with both major and minor fissures. One of the largest in the right middle lobe measures 6 mm, 3/201. No pleural effusions or pleural calcification. Mediastinum: Heart size is normal. LAD stent versus coronary artery calcification. Dual lead pacemaker in place. No pericardial effusion. No mediastinal adenopathy by size criteria. Thoracic aorta and central pulmonary arteries are normal in size. Esophagus is normal in caliber. No hiatal hernia. Bones and chest wall: Left chest pacemaker. No suspicious bony lesions. No vertebral body compression fractures. No axillary or supraclavicular adenopathy by size criteria. Thyroid gland is normal . Abdomen: Visualized upper abdominal solid organs and bowel loops appear normal in the absence of contrast. IMPRESSION: 1. Several small bilateral lung nodules, all of which appear stable compared to a remote prior study. 2. Probable coronary stent and cardiac pacemaker. Dictated by: Nila Saunders M.D. on 11/26/2021 at 13:14 Approved by: Nila Saunders M.D. on 11/26/2021 at 13:30
== END ==
PROVIDERS: PCP Internal Medicine; Referring Provider Internal Medicine; Visit Provider Internal Medicine
DX: R49.0 Dysphonia (principal); R91.8 Other nonspecific abnormal finding of lung field; Z95.0 Presence of cardiac pacemaker
CPT/HCPCS: 71250

== ENCOUNTER 2023-05-31 10:49 | Emergency (ER) | payer MEDICARE, OTHER, SELFPAY ==
[2023-05-31] VITALS (7 sets, daily range): BP systolic 128–154; BP diastolic 66–73; PULSE 59–60; RESP 11–26; TEMP 36.7; O2SAT 97; BMI 38.4
--- NOTE | 2023-05-31 11:46 | ED.GENADULT ---
HPI - General Adult General Chief complaint: Extremity Injury, Upper Stated complaint: heart cath T-9/SOB/headaches/pain in RT arm Time Seen by Provider: 05/31/23 11:19 Source: patient and family Mode of arrival: Ambulatory History of Present Illness HPI narrative: 78-year-old male who was approximately 1 week status post a cardiac catheterization. He stated that they attempted 4 times to obtain access to his right radial artery but were unable to. They then went in his femoral artery. He did have stents placed during a prior catheterization and they did not place any new stents during this time. Since that time he has had some swelling and discomfort to his right upper extremity. He states that it is located in specific areas and occurs more at night. He is having some shortness of breath but this has been going on since prior to the procedure. He denies any fevers. He did contact his locomotive boilermaker who advised that he come to the emergency department. There is a plan for him to have an ultrasound tomorrow. Related Data Home Medications Medication Instructions Recorded Confirmed dofetilide 125 mcg capsule 250 mcg PO Q12H 08/07/19 04/27/20 (Tikosyn) furosemide 20 mg tablet 20 mg PO DAILY 08/07/19 04/27/20 irbesartan 150 mg tablet (Avapro) 150 mg PO DAILY 08/07/19 04/27/20 sertraline 50 mg tablet 50 mg PO DAILY 08/07/19 04/27/20 tamsulosin 0.4 mg capsule (Flomax) 0.4 mg PO DAILY 08/07/19 04/27/20 warfarin 7.5 mg tablet (Coumadin) See Rx Instructions .Route .COMPLEX 08/07/19 04/27/20 albuterol sulfate 90 mcg/actuation 1 puff inhalation QID PRN 09/29/19 04/27/20 aerosol inhaler (Ventolin HFA) Shortness Of Breath triamcinolone acetonide 55 mcg 1 spray intranasal DAILY PRN 09/29/19 04/27/20 nasal spray aerosol (Nasacort) Allergy Symptoms metronidazole 0.75 % topical cream 1 applic topical 04/27/20 prednisolone acetate 1 % eye 1 drp EYE-RIGHT QID 04/27/20 04/27/20 drops,suspension sildenafil 100 mg tablet 100 mg PO DAILY PRN Erectile 04/27/20 04/27/20 Dysfunction Previous Rx's Medication Instructions Recorded cephalexin 500 mg capsule 500 mg PO QID #20 caps 07/01/21 hydrocodone 5 mg-acetaminophen 325 1 tab PO Q6H PRN pain #7 tabs 07/01/21 mg tablet ondansetron 4 mg disintegrating 4 mg PO Q8H PRN nausea and 07/01/21 tablet vomiting #10 tabs Allergies Allergy/AdvReac Type Severity Reaction Status Date / Time Iodinated Contrast Media Allergy Verified 07/01/21 08:47 iodine Allergy Verified 07/01/21 08:47 Review of Systems Constitutional Constitutional: Reports system reviewed and no additional complaints, except as documented Musculoskeletal Musculoskeletal: Reports system reviewed and no additional complaints, except as documented Integumentary/Breasts Skin/Breast: Reports system reviewed and no additional complaints, except as documented Neurologic Neurologic: Reports system reviewed and no additional complaints, except as documented Patient History Medical History Anxiety Arrhythmia Arthritis BPH (benign prostatic hyperplasia) Chronic anticoagulation COPD (chronic obstructive pulmonary disease) Diverticulitis Easy bruisability GERD (gastroesophageal reflux disease) Gout History of cardioversion HTN (hypertension) Hx of agent [place] exposure Mitral regurgitation Obesity Obstructive sleep apnea Pacemaker (06/06/18) Pain Seasonal allergies Sinus bradycardia Surgical History H/O inguinal hernia repair (~1982) History of surgery (~2018) Hx of nasal septoplasty (~1988) Status cardiac pacemaker Social History household members: spouse Smoking Status: Former smoker alcohol intake: never Smoking Status: Former smoker alcohol intake frequency: 0-2 drinks per day Substance Use Type: does not use Exam Initial Vital Signs Initial Vital Signs: Vital Signs Pulse Oximetry 97 05/31/23 10:55 Resp Effort & Inspection: normal respiratory effort Auscultation: clear to auscultation bilaterally Cardio Pulses: radial pulses present on the right Skin Other: He does have extensive bruising to his right upper extremity that goes from his wrist to just proximal to his elbow. Mostly on the volar aspect. There are no pustules. No vesicles. No cellulitis. Neuro Sensory Exam: no sensory deficits noted Extrem Other: Swelling to his right forearm. Course Vital Signs Vital signs: Vital Signs - 8 hr 05/31/23 11:02 05/31/23 10:55 05/31/23 10:56 Temperature 98.1 F Pulse Rate 60 60 Respiratory Rate 22 Blood Pressure 154/70 H Pulse Oximetry 97 97 97 Oxygen Delivery Method Room Air 05/31/23 10:56 05/31/23 11:00 05/31/23 11:01 Temperature Pulse Rate 59 L Respiratory Rate 11 L Blood Pressure 154/70 H 143/66 H Pulse Oximetry 97 Oxygen Delivery Method 05/31/23 11:01 05/31/23 11:30 05/31/23 11:30 Temperature Pulse Rate 59 L 60 Respiratory Rate 26 H Blood Pressure 128/73 Pulse Oximetry 97 97 Oxygen Delivery Method Medical Decision Making ECG Data Attestation: I personally reviewed and interpreted this ECG as follows: Interpretation: Sinus rhythm Ventricular rate is [address] T wave changes MDM Narrative Medical decision making narrative: His physical exam today is consistent with postoperative swelling although I have low suspicion for cellulitis. Low suspicion for pseudoaneurysm/aneurysm his radial artery. Low suspicion for DVT based on his presentation. His shortness of breath is at baseline. No fevers. We will hold on any radiologic studies today to include an ultrasound. Patient stated that he will contact his locomotive boilermaker for follow-up and he may obtain the ultrasound tomorrow. No indication for antibiotics. He was given return precautions. He expressed understanding and agreement. Discharge Plan Departure Patient Disposition: Home Clinical Impression: Extensive postoperative bruising Activity Restrictions/Additional Instructions: Recommend that you continue to follow all of the postoperative instructions given to you by the locomotive boilermaker. Recommend that you keep all of your scheduled follow-up appointments. Return to the emergency department for new or worsening symptoms. Prescriptions: No Action warfarin [Coumadin] 7.5 mg tablet See Rx Instructions .ROUTE .COMPLEX Rx Instructions: 7.5 mg orally daily;15mg on sundays dofetilide [Tikosyn] 125 mcg capsule 250 mcg PO Q12H irbesartan [Avapro] 150 mg tablet 150 mg PO DAILY furosemide 20 mg tablet 20 mg PO DAILY sertraline 50 mg tablet 50 mg PO DAILY tamsulosin [Flomax] 0.4 mg capsule 0.4 mg PO DAILY triamcinolone acetonide [Nasacort] 55 mcg Aerosol,[place] 1 spray INTRANASAL DAILY PRN (Reason: Allergy Symptoms) albuterol sulfate [Ventolin HFA] 90 mcg/actuation Hfa Aerosol Inhaler 1 puff INHALATION QID PRN (Reason: Shortness Of Breath) cephalexin 500 mg capsule 500 mg PO QID Qty: 20 0RF hydrocodone-acetaminophen 5-325 mg tablet 1 tab PO Q6H PRN (Reason: pain) Qty: 7 0RF ondansetron 4 mg tablet,disintegrating 4 mg PO Q8H PRN (Reason: nausea and vomiting) Qty: 10 0RF sildenafil 100 mg tablet 100 mg PO DAILY PRN (Reason: Erectile Dysfunction) prednisolone acetate 1 % drops,suspension 1 drp EYE-RIGHT QID metronidazole 0.75 % cream 1 applic TOPICAL Referrals: Gerald Justice MD [Primary Care Provider] - Stand Alone Forms: Patient Portal/API
--- NOTE | 2023-05-31 12:11 | PC.NURSE ---
Recent cardiac laborer laboratory procedure. Attempted cath r-wrist, unsuccessful. Pt states he's kept it wrapped with dax bandage to help with swelling and bruising. Pt on thinner.
== END 2023-05-31 12:15 | disposition home or self-care (01) ==
PROVIDERS: Emergency Provider Emergency Medicine; PCP Internal Medicine
DX: L76.32 Postprocedural hematoma of skin and subcutaneous tissue following other procedure (principal); R06.02 Shortness of breath
CPT/HCPCS: 93005; 99281; 99282

== ENCOUNTER 2024-02-26 11:32 | Day surgery (SDC) | payer MEDICARE, OTHER, SELFPAY ==
[2024-02-22 08:12] VITALS: BMI 34.5
[2024-02-26] VITALS (7 sets, daily range): BP systolic 95–132; BP diastolic 42–79; PULSE 60–81; RESP 12–18; TEMP 36.2–36.5; O2SAT 65–96; BMI 35.4
--- NOTE | 2024-02-26 | PATH_ITS ---
[facility] Accession Number: [id number] No. of containers..01 Tissue . 01 Material submitted: . prostate - PROSTATE CHIPS . 01 Diagnosis: PROSTATE, TURP: Benign prostatic parenchyma. No evidence of malignancy. [facility] 03/01/2024 1146 Local . 01 Electronically signed: . Matt Wright MD, PhD, Pathologist NPI- [id number] . 01 Gross description: . Received in formalin with two identifiers and prostate chips, are multiple fragments of ly, rubbery soft tissue admixed with hemorrhagic material weighing 12 grams and aggregating to 5.5 x 5.2 x 2.3 cm. No lesions are identified. The ly tissue fragments with some hemorrhagic material are submitted in cassette [id number]. ([id number]) /[facility] 02/27/2024 0829 Local . 01 Pathologist provided ICD-10: N40.1 . 01 CPT . 210474 Specimen Comment: A courtesy copy of this report has been sent to [phone] Performed at: [address] [facility] [address], [place], [place] [id number] MD Elmer Guthrie MD Phone: [phone]
--- NOTE | 2024-02-26 11:49 | PM.PREOP ---
Pre-operative Note Interval Note History & Physical reviewed/Exam performed by Physician: Yes Changes to H&P: No
[2024-02-26] MEDS: ACETAMINOPHEN IV 1,000 MG/100 ML VIAL 400 MG IV (12:09)
[2024-02-26] MEDS: LACTATED RINGERS 1,000 ML 42 ML IV ×2 (12:09→14:29)
[2024-02-26] MEDS: CEFAZOLIN 2 GM/100 ML PREMIX 100 ML IV (12:45)
--- NOTE | 2024-02-26 12:53 | SUR.OPER ---
Lithotomy on padded OR bed, head on pillow, arms secured on padded arm boards at <90 degrees abduction. Legs secured in padded yellow fins stirrups.
[2024-02-26] MEDS: TRANEXAMIC ACID 1,000 MG in SODIUM CHLORIDE 0.9% 100 ML 200 MG IV ×2 (13:17→14:10)
--- NOTE | 2024-02-26 14:26 | P.OP_ITS ---
Operative Date/Time/Diagnoses Date of procedure: 02/26/24 Time of procedure: 14:05 Pre-op diagnosis: 1. Bladder outlet obstruction. 2. BPH. 3. Failure/dissatisfaction with medical therapy. Post-op diagnosis: same Procedure & Clinicians Procedure: 1. Cystoscopy/Aquablation. 2. Cystoscopy/Transurethral resection of prostate. 3. Transrectal prostate ultrasound-diagnostic and guidance. Same procedure as scheduled: Yes Indications: 1. Bladder outlet obstruction. 2. BPH. 3. Failure/dissatisfaction with medical therapy. Surgeon: Da Johnson Click Yes if Unassisted: Yes Anesthesia Type: General Operative Notes Findings: 1. Urethral-normal caliber without annular stricture or lesion. 2. External sphincter-coapted with normal overlying urothelium and vascularity. 3. Prostate-/+cm length with impressive trilobar hyperplasia. Marked mucosal hyper vascularity. 4. Bladder-2+ trabeculation. Normal ureteral orifices bilaterally. No stone, diverticulum, or neoplasm seen. Circumferential impingement of the bladder neck due to prostate. Closure Type: not applicable Specimen(s): other (Prostate TUR chips) Applied: catheter ([address] hematuria catheter to normal saline continuous bladder irrigation.) Estimated Blood Loss (mL): 20 Procedure in detail: The patient was positioned supine was administered general anesthesia. He was then repositioned in semi-lithotomy and the lower abdomen, genitalia, groin were then prepped and draped in sterile fashion. 60 cc lubricating jelly was then instilled in the rectal vault. Next the transrectal ultrasound probe was positioned in the rectum by advancing it through the anus parallel to the plane of the floor. He was adjusted into the midline position. Next the cystoscopic handpiece was advanced in the lower urinary tract under direct visualization with the findings as described above. The hand piece was then adjusted so that it was coplaned are with the transrectal ultrasound probe. The treatment jet was calibrated for the 12 position. The lens was then scrolled distally in the external sphincter was identified in the verumontanum was identified the lens was then positioned proximal to the external sphincter. No in the sagittal plane the scope tip was identified and final adjustments made for adequate visualization in appropriate compression. Now in the transverse plane Jimmie alignment was confirmed and adjusted to approximately the 3 and 9 position. Now, in the transverse plane the transrectal ultrasound probe was scrotum back to the mid prostate at its widest circumference. Angle mapping was then conducted with cursor placement near or at the margin of the surgical capsule and adenoma. No additional median lobe plan was indicated. Now the scope was registered in the sagittal plane in the scope trace was conducted. Now in the sagittal plane important landmarks were identified and labeled as point of beginning at proximal margin of tissue to be treated, bladder neck, mid prostate, and the scope tip just proximal to the external sphincter. Now with the rough draft of the treatment plan completed the treatment profile was created final adjustments at start of tissue treatment, bladder neck, mid prostate verumontanum and scope tip was performed. First pass Aquablation was then conducted under the surgeon's control. Now adjustments in the treatment contour were made in the sagittal plane. The robot then executed a 2nd pass under direct control of this surgeon. The scope lens was then scrotal forward so that all components of the hand piece were contained within the sheath. The hand piece was then removed. The transrectal ultrasound probe was adjusted to allow insertion and passage of the resectoscope under direct visualization. The Ellik evacuator was then utilized to irrigate some retained clot within the bladder. The resectoscope was then fitted with the resecting loop. Focal bladder neck cautery was performed but in this instance there was a significant amount of untreated tissue of the median lobe and anterior tissue between the 10 and 2 o'clock position the required resection. Hemostasis was satisfactorily obtained with electrocautery. Tissue chips were then evacuated from the bladder and prostate lumen using the Ellik evacuator. Several additional fragments were collected with a resectoscope loop. All chips were then labeled and submitted to pathology for routine gross and microscopic examination. The bladder was left partially filled and the resectoscope was removed. A 24 Persian three-way hematuria catheter was then positioned in the bladder with the assistance of a catheter guide. The balloon was inflated to 30 cc in the balloon snugged gently against the bladder neck. Catheter was then hand irrigated clear and then set to sterile normal saline continuous bladder irrigation. The patient was then repositioned in supine, was awakened, then transferred to recovery awake and in stable condition. Complications: none Post-operative Condition: stable Disposition: PACU Plan for aftercare: 1. Discharge home versus admit for same day surgery status.
--- NOTE | 2024-02-26 17:06 | SUR.PHASEII ---
Discharge instructions reviewed with patient and spouse. Patient shown how to irrigate [place] prn per Dr. Johnson. Supplies provided. Leg bag declined by patient. Irrigation stopped, urine grade 2-3.
== END 2024-02-26 17:15 | disposition home or self-care (01) ==
PROVIDERS: PCP Internal Medicine; Referring Provider Specialist; Visit Provider Specialist
PROC: 0VT08ZZ Resection of Prostate, Via Natural or Artificial Opening Endoscopic (ICD-10-PCS; CPT 52597; principal; 2024-02-26 12:45)
DX: N40.1 Benign prostatic hyperplasia with lower urinary tract symptoms (principal); N13.8 Other obstructive and reflux uropathy
CPT/HCPCS: 0421T; C2596; J0136; J0690; J1100; J1170; J2405; J2704; J3490

== ENCOUNTER → 2024-02-29 15:31 | Outpatient (CLI) | payer MEDICARE, OTHER, SELFPAY | PROVIDERS: PCP Internal Medicine; Visit Provider Specialist | DX: N40.1 Benign prostatic hyperplasia with lower urinary tract symptoms (principal) | CPT/HCPCS: 87086 ==

== ENCOUNTER 2024-03-01 07:16 | Emergency (ER) | payer MEDICARE, OTHER, SELFPAY ==
[2024-03-01 07:20] VITALS: BP 181/88; PULSE 71; RESP 28; TEMP 36.1; O2SAT 97; BMI 35.4
--- NOTE | 2024-03-01 07:24 | ED.GENADULT ---
HPI - General Adult General Chief complaint: Urogenital-Female Stated complaint: can't urinate Time Seen by Provider: 03/01/24 07:18 Source: patient Mode of arrival: Ambulatory Limitations: no limitations History of Present Illness HPI narrative: Patient is a 78-year-old male who earlier this week underwent a urologic procedure for his prostate. He states yesterday at follow-up with his urologist. Had the [place] catheter removed and has been unable to urinate since last night. The [place] catheter was removed yesterday and he did meet his due to void in the urologist office. Related Data Home Medications Medication Instructions Recorded Confirmed irbesartan 150 mg tablet (Avapro) 150 mg PO DAILY 08/07/19 02/29/24 albuterol sulfate 90 mcg/actuation 1 puff inhalation QID PRN 09/29/19 02/29/24 aerosol inhaler (Ventolin HFA) Shortness Of Breath apixaban 5 mg tablet 5 mg PO BID 01/08/24 02/29/24 aspirin 81 mg tablet,delayed 81 mg PO DAILY 01/08/24 02/29/24 release atorvastatin 80 mg tablet 80 mg PO DAILY 01/08/24 02/29/24 ipratropium bromide 42 mcg (0.06 2 spray intranasal TID 01/08/24 02/29/24 %) nasal spray isosorbide mononitrate 60 mg 60 mg PO BID 01/08/24 02/29/24 tablet,extended release 24 hr melatonin 3 mg capsule 3 mg PO BEDTIME PRN Sleep 01/08/24 02/29/24 metoprolol succinate 25 mg 25 mg PO BID 01/08/24 02/29/24 tablet,extended release 24 hr metronidazole 0.75 % topical cream 1 applic topical DAILY 01/08/24 02/29/24 nitroglycerin 0.4 mg sublingual 0.4 mg sublingual Q5M PRN Chest 01/08/24 02/29/24 tablet Pain fluticasone propionate 230 2 puff inhalation BID 02/22/24 02/29/24 mcg-salmeterol 21 mcg/actuation HFA inhaler (Advair HFA) furosemide 40 mg tablet 40 mg PO DAILY 02/22/24 02/29/24 naproxen sodium 220 mg capsule 220 mg PO BEDTIME PRN pain 02/22/24 02/29/24 (Aleve) tamsulosin 0.4 mg capsule 0.4 mg PO BID 02/22/24 02/29/24 Previous Rx's Medication Instructions Recorded cephalexin 250 mg capsule 250 mg PO TID #15 caps 02/26/24 Allergies Allergy/AdvReac Type Severity Reaction Status Date / Time Iodinated Contrast Media Allergy Verified 03/01/24 07:20 iodine Allergy Verified 03/01/24 07:20 Review of Systems Gastrointestinal Gastrointestinal: Reports system reviewed and no additional complaints, except as documented Genitourinary Genitourinary: Reports system reviewed and no additional complaints, except as documented Patient History Medical History History of GI bleed History of angina CAD (coronary artery disease) Nonrheumatic mitral valve regurgitation Asthma-COPD overlap syndrome Hx of atrial flutter PAF (paroxysmal atrial fibrillation) NSVT (nonsustained ventricular tachycardia) BPH loc w urin obs/LUTS Hx of primary hypertension Hx of gout Seasonal allergies Arrhythmia Hx of agent [place] exposure History of cardioversion Gout Anxiety Sinus bradycardia Diverticulitis BPH (benign prostatic hyperplasia) Pain Arthritis Easy bruisability GERD (gastroesophageal reflux disease) HTN (hypertension) Obstructive sleep apnea COPD (chronic obstructive pulmonary disease) Obesity Chronic anticoagulation Mitral regurgitation Pacemaker (06/06/18) Surgical History Hx of laser photocoagulation of retina (2018) Hx of arthroscopy of left knee History of cardiac catheterization Hx of heart artery stent Hx of circumcision Status cardiac pacemaker History of surgery (~2018) Hx of nasal septoplasty (~1988) H/O inguinal hernia repair (~1982) Social History marital status: number of children: 2 household members: spouse Smoking Status: Former smoker alcohol intake: former caffeine: Yes Type(s) of exercise: walking frequency: 3-4 times per week duration: 45-60 minutes/day Smoking Status: Former smoker alcohol intake frequency: 0-2 drinks per day Substance Use Type: does not use Exam Initial Vital Signs Initial Vital Signs: Vital Signs Temperature 97.0 F L 03/01/24 07:20 Pulse Rate 71 03/01/24 07:20 Respiratory Rate 28 H 03/01/24 07:20 Blood Pressure 181/88 H 03/01/24 07:20 Pulse Oximetry 97 03/01/24 07:20 Oxygen Delivery Method Room Air 03/01/24 07:20 Const General: cooperative Other: Uncomfortable appearing GI Inspection: normal to inspection Palpation: tender (Lower abdomen) Course Orders Ordered: Discontinued Medications Lidocaine HCl (Lidocaine 2% (Glydo) 6 Ml Gel) 6 ml TOP NOW ONE Stop: 03/01/24 07:24 Vital Signs Vital signs: Vital Signs - 8 hr 03/01/24 07:20 Temperature 97.0 F L Pulse Rate 71 Respiratory Rate 28 H Blood Pressure 181/88 H Pulse Oximetry 97 Oxygen Delivery Method Room Air Medical Decision Making MDM Narrative Medical decision making narrative: Patient with acute urinary retention after having his [place] catheter removed yesterday. A new catheter was placed today with improvement of symptoms. Will have him follow-up with urology. Discharge Plan Departure Patient Disposition: Home Clinical Impression: Acute urinary retention Instructions: How to Care for Your Olmstead Catheter -- Male, DI for Urinary Retention in Men Activity Restrictions/Additional Instructions: Recommend that you contact your urologist office to discuss follow-up. Prescriptions: No Action irbesartan [Avapro] 150 mg tablet 150 mg PO DAILY albuterol sulfate [Ventolin HFA] 90 mcg/actuation Hfa Aerosol Inhaler 1 puff INHALATION QID PRN (Reason: Shortness Of Breath) furosemide 40 mg Tablet 40 mg PO DAILY tamsulosin 0.4 mg Capsule 0.4 mg PO BID fluticasone propion-salmeterol [Advair HFA] 230-21 mcg/actuation Hfa Aerosol Inhaler 2 puff INHALATION BID naproxen sodium [Aleve] 220 mg Capsule 220 mg PO BEDTIME PRN (Reason: pain) cephalexin 250 mg capsule 250 mg PO TID Qty: 15 0RF apixaban 5 mg tablet 5 mg PO BID metoprolol succinate 25 mg tablet extended release 24 hr 25 mg PO BID atorvastatin 80 mg tablet 80 mg PO DAILY ipratropium bromide 42 mcg (0.06 %) spray,non-aerosol 2 spray intranasal TID Rx Instructions: administer into each nostril metronidazole 0.75 % cream 1 applic topical DAILY isosorbide mononitrate 60 mg tablet extended release 24 hr 60 mg PO BID aspirin 81 mg tablet,delayed release (DR/EC) 81 mg PO DAILY melatonin 3 mg capsule 3 mg PO BEDTIME PRN (Reason: Sleep) nitroglycerin 0.4 mg tablet, sublingual 0.4 mg sublingual Q5M PRN (Reason: Chest Pain) Rx Instructions: do not exceed 3 doses per episode Referrals: Gerald Justice MD [Primary Care Provider] - Da Johnson MD [Physician] - Stand Alone Forms: Patient Portal/API
[2024-03-01] MEDS: LIDOCAINE 2% (GLYDO) 6 ML GEL TOP (07:25)
[2024-03-01 07:59] VITALS: BP 119/69; PULSE 65; O2SAT 96
[2024-03-01 08:00] VITALS: O2SAT 96
== END 2024-03-01 08:15 | disposition home or self-care (01) ==
PROVIDERS: Emergency Provider Emergency Medicine; PCP Internal Medicine
DX: R33.9 Retention of urine, unspecified (principal)
CPT/HCPCS: 51702; 99283

== ENCOUNTER → 2024-03-05 14:37 | Outpatient (CLI) | payer MEDICARE, OTHER, SELFPAY | PROVIDERS: PCP Internal Medicine; Visit Provider Specialist | DX: N40.1 Benign prostatic hyperplasia with lower urinary tract symptoms (principal); N13.8 Other obstructive and reflux uropathy; R33.8 Other retention of urine | CPT/HCPCS: 51798; 81002; 87086 ==

== ENCOUNTER → 2024-03-12 08:49 | Outpatient (CLI) | payer MEDICARE, OTHER, SELFPAY | PROVIDERS: PCP Internal Medicine; Visit Provider Urology | DX: N40.1 Benign prostatic hyperplasia with lower urinary tract symptoms (principal) | CPT/HCPCS: 87086 ==

== ENCOUNTER → 2024-05-09 09:47 | Outpatient (CLI) | payer MEDICARE, OTHER, SELFPAY | PROVIDERS: PCP Internal Medicine; Visit Provider Urology | DX: N40.1 Benign prostatic hyperplasia with lower urinary tract symptoms (principal); R39.9 Unspecified symptoms and signs involving the genitourinary system; R33.9 Retention of urine, unspecified; R39.15 Urgency of urination; R30.0 Dysuria; R35.0 Frequency of micturition; Z68.35 Body mass index [BMI] 35.0-35.9, adult | CPT/HCPCS: 51798; 81002; 87086; 99214 ==